=== PATIENT | male | born 1940 | race Caucasian/White ===

== ENCOUNTER 2022-09-01 13:21 | Inpatient (IN) | payer MEDICARE, SELFPAY ==
[2022-09-01] VITALS (29 sets, daily range): BP systolic 110–144; BP diastolic 61–79; PULSE 80–88; RESP 10–26; TEMP 35.8–36.5; O2SAT 92–100; BMI 25.7
--- NOTE | ~2022-09-01 | XR_ITS ---
XR chest 2V 09/01/2022 13:54 Indication: Cough. Confusion. Procedure: AP and lateral views of the chest Comparison: 07/31/2011 Findings: Patchy bilateral airspace consolidation, consistent with pneumonia. Heart size normal. Pace maker lead tip in the right ventricle. No pleural effusion, edema or pneumothorax. No acute osseous a bnormality. Impression: 1: Patchy bilateral airspace disease, compatible with pneumonia. Reviewed, dictated and finalized at location A. Impression: 1: Patchy bilateral airspace disease, compatible with pneumonia.
--- NOTE | 2022-09-01 13:36 | ECG_ITS ---
Measurements Intervals [place] Rate: 84 P: MN: 0 QRS: -77 QRSD: 178 T: 83 QT: 456 QTc: 540 Interpretive Statements ELECTRONIC VENTRICULAR PACEMAKER INTRINSIC COMPLEXES ARE APPROPRIATELY SENSED ABNORMAL RHYTHM ECG NO PREVIOUS ECG AVAILABLE FOR COMPARISON Electronically Signed On 09-02-2022 11:15:50 CDT by Zion Flower M.D.
--- NOTE | 2022-09-01 14:47 | ED.URI ---
HPI - URI/Sore Throat General Chief Complaint: Upper Respiratory Infection Stated Complaint: cough, fatigue wants CXR Time Seen by Provider: 09/01/22 14:34 History of Present Illness HPI Narrative: Patient is an 82-year-old male with history of A-fib on Eliquis, here for evaluation of productive cough, low-grade fevers (99.8), possible increased confusion x3 days. His cough has been productive of yellow/white sputum, reports when the cough is there he feels short of breath. Home COVID test was negative. No chest pain, leg swelling. PMD was contacted who recommended ED evaluation for chest x-ray. Related Data Home Medications Medication Instructions Recorded Confirmed amlodipine 10 mg tablet 10 mg PO DAILY 12/20/20 09/01/22 apixaban 5 mg tablet (Eliquis) 5 mg PO BID 12/20/20 09/01/22 donepezil 10 mg tablet 10 mg PO QHS 12/20/20 09/01/22 memantine 10 mg tablet 10 mg PO BID 12/20/20 09/01/22 atorvastatin 20 mg tablet 20 mg PO QHS 09/01/22 09/01/22 hydralazine 25 mg tablet 25 mg PO TID 09/01/22 09/01/22 irbesartan 300 mg tablet 300 mg PO DAILY 09/01/22 09/01/22 triamcinolone acetonide 0.1 % 1 applic topical BID PRN Itching 09/01/22 09/01/22 topical cream Allergies Allergy/AdvReac Type Severity Reaction Status Date / Time OPIATES AdvReac Unknown AVOIDS- Uncoded 09/01/22 15:19 MILD Confusion Review of Systems Review of Systems: Gen: Denies fevers or chills Eyes: Denies eye pain or visual change ENT: Denies congestion Respiratory: Reports cough CV: Denies chest pain or palpitations GI: Denies abdominal pain nausea, emesis or diarrhea : denies burning, urgency, frequency or hematuria Musculoskeletal: Denies back pain or muscle pain Neuro: Denies numbness, tingling, weakness or focal weakness Skin: Denies rash Except as documented, all other systems reviewed and negative [facility] Past Medical History Medical History Arthritis Hypertension Family History Family History (Updated 09/01/22 @ 17:43 by Ally Vega RN) Mother Hypertension Social History Social History (Updated 12/20/20 @ 09:14 by Marija Menon MA) Smoking status: Never smoker Alcohol intake: never Substance use: never Substance use type: does not use Lack of Transportation: No Lack of Food: Never True Current Housing: I Have Housing Concerned About Future Housing: No Difficulty Paying Gas/Electric Bills: No Difficulty Paying for Meds: No Currently Unemployed: No Education: Master's Degree or Higher Difficulty w/ Childcare or Family Care: No Spiritual care concerns: No Exam Narrative: APPEARANCE: Well appearing, no pain in distress, well-nourished. Head: Normocephalic and atraumatic. EYES: PERRLA/EOMI, conjunctivae clear NOSE: No nasal drainage EARS: External ear normal in appearance THROAT: Oropharynx is clear. Mucous membranes are moist. NECK: Supple. No adenopathy, no masses. RESPIRATORY: Slight crackles in the left lower lobe. Airway patent, respirations nonlabored. Clear to auscultation bilaterally, no rales, rhonchi, wheezing. CARDIOVASCULAR: Regular rate and rhythm without murmurs, rubs, or gallops. ABDOMINAL: Normoactive bowel sounds. Soft, nontender, nondistended. No rebound tenderness or guarding. MUSCULOSKELETAL: Extremities are warm and well-perfused. Moves all extremities well. No edema. NEURO: Normal speech. No focal neurologic deficits. SKIN: Skin is warm and dry. No rashes. PSYCHIATRIC: Normal affect/mood. Course Vital Signs Vital signs: Vital Signs Temperature 97.7 F 09/01/22 13:23 Pulse Rate 84 09/01/22 13:23 Respiratory Rate 20 09/01/22 13:23 Blood Pressure 110/75 09/01/22 13:23 Pulse Oximetry 95 09/01/22 13:23 Oxygen Delivery Room Air 09/01/22 13:23 Temperature 96.5 F L 09/01/22 17:44 Pulse Rate 81 09/01/22 18:00 Respiratory Rate 20 09/01/22 17:44 Blood Pre
[2022-09-01 15:03] LABS: Basophils Absolute Auto 0.1 K/mm3 (0.0-0.1); Basophils Percent Auto 0.4 % (0.2-1.2); Eosinophils Percent Auto 0.3 % (0-4.4); Hematocrit 42.3 % (42.0-52.0); Immature Granulocyte Absolute 0.06 K/mm3 (0.00-0.031); Immature Granulocyte Percent A 0.5 % (0-0.5); Lymphocytes Absolute Auto 1.75 K/mm3 (0.9-3.2); Lymphocytes Percent Auto 15.5 % (18.3-44.2); Mean Corpuscular HGB Conc 33.1 g/dl (32-36); Mean Corpuscular Volume 102.7 fl (80-100); Mean Platelet Volume 10.3 fl (7.4-10.4); Monocytes Absolute Auto 1.8 K/mm3 (0.1-0.6); Neutrophils Absolute Auto 7.6 K/mm3 (1.3-6.7); Neutrophils Percent Auto 67.3 % (45.5-73.1); Platelet Count Result 244 k/mm3 (150-375); Red Blood Count 4.12 M/mm3 (4.6-6.20); Red Cell Distribution Width 13.6 % (11.5-14.5); White Blood Count 11.3 K/mm3 (4.5-10.0)
[2022-09-01 15:12] LABS: Alanine Aminotransferase 27 U/L (6-50); Albumin Level 4.1 g/dL (3.5-5.1); Alkaline Phosphatase 117 U/L (38-126); Anion Gap 8 mmol/L (8-16); Aspartate Amino Transferase 33 U/L (17-59); Bilirubin,Total 1.3 mg/dL (0.2-1.3); Blood Urea Nitrogen 27 mg/dL (9-20); Calcium 9.5 mg/dL (8.4-10.2); Carbon Dioxide 26 mmol/L (22-30); Chloride 103 mmol/L (98-107); Estimated CRCL calculation 35 ml/min; Estimated Glomerular Filt Rate 42; Glucose 107 mg/dL (65-110); Sodium 137 mmol/L (137-145)
[2022-09-01 15:15] LABS: INR 1.4; Prothrombin Time 18.3 Seconds (11.1-14.7)
[2022-09-01 15:16] LABS: Partial Thromboplastin Time 37.5 SECONDS (22.3-36.8)
[2022-09-01 15:28] LABS: Troponin I 0.056 ng/mL (0.000-0.034)
[2022-09-01] MEDS: SODIUM CHLORIDE 0.9% IV 1,000 ML 999 ML IV CONT (15:59)
[2022-09-01] MEDS: ALBUTEROL SULFATE NEB 2.5 MG/3 ML INH INHALATION ×2 (16:07→20:28)
[2022-09-01] MEDS: IPRATROPIUM BR 0.02% INH SOLN 0.5 MG/2.5 ML VIAL INHALATION ×2 (16:08→20:29)
[2022-09-01 16:46] LABS: Magnesium 2.1 mg/dL (1.6-2.3)
[2022-09-01 16:55] LABS: NT Pro B Type Natriuretic Pept 1800 pg/mL (19.9-100)
--- NOTE | 2022-09-01 18:15 | PC.NURSE ---
This patient, Zion Pathak, was admitted to IMU Room 202-. Patient/family oriented to hospital policies and general routines including ID bracelet, bed and alarms, visiting hours, pain management, procedures, bathroom and other care routines, personal items, smoking policy, room service/diet, and visiting hours. Information on how to activate the Rapid Response Team has been discussed. Patient/Family are encouraged to report perceived risks to care and to ask questions if they do not understand what they are told or what they should do.
[2022-09-01] MEDS: DOXYCYCLINE 100 MG/NS 100 ML 100 MG/100 ML BAG IVPB (18:28)
[2022-09-01 18:49] LABS: Troponin I 0.047 ng/mL (0.000-0.034)
[2022-09-01 21:51] LABS: Troponin I 0.059 ng/mL (0.000-0.034)
--- NOTE | 2022-09-01 23:57 | PM.IMHP ---
H&P: HPI History of Present Illness Date/Time: 09/01/22 17:00 Chief Complaint: Cough, fatigue. 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 The patient provides the following history and his and provides some additional information, with the patient's permission. He has not been feeling well for several days with increasing confusion from baseline, cough productive of greenish-yellow sputum, poor appetite with decreased oral intake, fatigue, and mild shortness of breath with exertion. He took a home COVID test yesterday which was negative. Because he was not feeling any better he was instructed to come in today for evaluation. He denies significant headache, sore throat, vomiting, diarrhea, dysuria, chest pain, and pleuritic pain. He was afebrile on arrival to the ED with stable vital signs. Chest x-ray showed patchy bilateral airspace disease compatible with pneumonia. Pertinent labs include a WBC count of 11.3, BUN 27, creatinine 1.60, proBNP 1800, and a troponin of 0.056. EKG showed and electronically paced rhythm. In the ED he was given a dose of ceftriaxone and doxycycline as well as a DuoNeb. He is being admitted in this setting for further treatment and observation. Review of Systems Review of Systems: Twelve systems were reviewed and are negative except for as per HPI. [facility] Past Medical History Medical History (Updated 09/02/22 @ 00:05 by Magi Cano PA-C) Arthritis Chronic anticoagulation Hodgkin lymphoma (2009) Hypertension Memory loss Non-Hodgkin lymphoma (2005) Paroxysmal atrial fibrillation Surgical History Surgical History (Updated 09/02/22 @ 00:05 by Magi Cano PA-C) History of permanent cardiac pacemaker placement History of tonsillectomy Family History Family History Mother Hypertension Social History Social History (Updated 09/02/22 @ 00:12 by Magi Cano PA-C) Social History: Surrogate medical decision maker: Rosalina Pathak, . Code status: Full code. Smoking status: Never smoker Alcohol intake: never Substance use: never Substance use type: does not use Lack of Transportation: No Lack of Food: Never True Current Housing: I Have Housing Concerned About Future Housing: No Difficulty Paying Gas/Electric Bills: No Difficulty Paying for Meds: No Currently Unemployed: No Education: Master's Degree or Higher Difficulty w/ Childcare or Family Care: No Additional living arrangements comments: Patient lives with his in [place]. 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 Spiritual care concerns: No Meds Home Medications and Allergies Home Medications Medication Instructions Recorded Confirmed Type amlodipine 10 mg tablet 10 mg PO HS 12/20/20 09/01/22 History apixaban 5 mg tablet (Eliquis) 5 mg PO BID 12/20/20 09/01/22 History donepezil 10 mg tablet 10 mg PO DAILY 12/20/20 09/01/22 History memantine 10 mg tablet 10 mg PO BID 12/20/20 09/01/22 History acetaminophen 500 mg capsule 1,000 mg PO BID 09/01/22 09/01/22 History atorvastatin 20 mg tablet 20 mg PO QHS 09/01/22 09/01/22 History cholecalciferol (vitamin D3) 50 50 mcg PO HS 09/01/22 09/01/22 History mcg (2,000 unit) capsule duloxetine 20 mg capsule,delayed 20 mg PO BID 09/01/22 09/01/22 History release hydralazine 25 mg tablet 25 mg PO BID 09/01/22 09/01/22 History irbesartan 300 mg tablet 300 mg PO DAILY 09/01/22 09/01/22 History psyllium husk 0.4 gram capsule 0.4 g PO DAILY 09/01/22 09/01/22 History (Metamucil) triamcinolone acetonide 0.1 % 1 applic topical BID PRN Itching 09/01/22 09/01/22 History topical cream Allergies
[2022-09-02] VITALS (24 sets, daily range): BP systolic 124–159; BP diastolic 58–81; PULSE 77–88; RESP 16–20; TEMP 36.4–37.2; O2SAT 93–98
--- NOTE | 2022-09-02 00:09 | ECHO_ITS ---
Patient Info Name: Zion Pathak Age: 82 years : 1940 Gender: Male Ht: 71 in Wt: 184 lbs BSA: 2.05 m2 HR: 80 bpm BP: 140 / 70 mmHg Heart Rhythm: Sinus Rhythm Technical Quality: Fair Exam Date: 09/02/2022 10:01 AM Exam Location: [facility] Patient Status: Inpatient Admit Date: 09/02/2022 Staff Ordering Physician: Magi Cano PA-C Cafeteria Or Lunchroom Checker: Silvia Patel RDCS Attending Provider: Miguel Horowitz MD Referring Physician: Rachael GEORGE; Exam Type: CA echo dop color flow w con Study Info Indications - elevated troponin, murmur, pafib, htn Complete two-dimensional, color flow and Doppler transthoracic echocardiogram is performed with contrast to opacify the left ventricle and to improve the deliniation of the left ventricle endocardial borders. Contrast/Agitated Saline Contrast/Ag. Saline: Definity Amount: 2.00 ml Administered By: Silvia Patel RDCS Existing IV Access: Yes IV Access Condition: patent with no signs of infiltration Summary 1. Definity contrast administered improved wall motion interpretation. 2. Left ventricular chamber dimension is normal. 3. Left ventricular systolic function is normal, estimated at 65-70%. 4. There is moderate asymmetric septal increased left ventricular wall thickness. 5. The left ventricular diastolic function is abnormal. 6. E/e' 25 is elevated. 7. Linear artifact in right ventricle suggestive of catheter(s), pacemaker lead(s), or ICD lead(s). 8. Linear artifact in the right atrium suggestive of catheter(s), pacemaker lead(s), or ICD lead(s). 9. There is severe aortic valve sclerosis. 10. There is moderate aortic valve stenosis with a peak velocity of 377.05 cm/s, mean gradient of 31 mmHg, and aortic valve area of 1.15 cm2. 11. There is mild aortic valve regurgitation. 12. The mitral valve has severely calcified annulus. 13. There is mild tricuspid valve regurgitation. 14. Mild pulmonary hypertension, estimated pulmonary arterial systolic pressure is 48 mmHg. Left Ventricle E/e' 25 is elevated. Definity contrast administered improved wall motion interpretation. Left ventricular chamber dimension is normal. Left ventricular systolic function is normal, estimated at 65-70%. There is moderate asymmetric septal increased left ventricular wall thickness. The left ventricular diastolic function is abnormal. Right Ventricle Linear artifact in right ventricle suggestive of catheter(s), pacemaker lead(s), or ICD lead(s). Right ventricular chamber dimension is normal. Right ventricular systolic function is normal. Left Atria Left atrial chamber dimension is normal. Right Atria Linear artifact in the right atrium suggestive of catheter(s), pacemaker lead(s), or ICD lead(s). Right atrial chamber dimension is normal. Aortic Valve The aortic valve is probable trileaflet. There is severe aortic valve sclerosis. There is moderate aortic valve stenosis with a peak velocity of 377.05 cm/s, mean gradient of 31 mmHg, and aortic valve area of 1.15 cm2. There is mild aortic valve regurgitation. Pulmonic Valve There is no pulmonic regurgitation. Mitral Valve The mitral valve has severely calcified annulus. There is no mitral valve stenosis. There is no mitral valve regurgitation. Tricuspid Valve There is mild tricuspid valve regurgitation. Mild pulmonary hypertension, estimated pulmonary arterial systolic pressure is 48 mmHg. Pericardium/Pleural There is no pericardial effusion. Inferior Vena Cava Normal inferior vena cava wi
[2022-09-02] MEDS: amLODIPine BESYLATE 5 MG TABLET 10 MG PO ×2 (01:35→20:30)
[2022-09-02] MEDS: CHOLECALCIFEROL 1,000 UNITS TABLET 2000 UNITS PO ×2 (01:36→20:30)
[2022-09-02] MEDS: MEMANTINE 10 MG TABLET PO ×3 (01:36→20:30)
[2022-09-02] MEDS: DULoxetine HCL 20 MG CAPSULE.DR PO ×3 (01:36→20:30)
[2022-09-02] MEDS: ATORVASTATIN 20 MG TABLET PO ×2 (01:36→20:30)
[2022-09-02] MEDS: APIXABAN 5 MG TABLET PO ×3 (01:36→20:30)
[2022-09-02] MEDS: LACTATED RINGERS 1,000 ML 100 ML IV CONT (01:37)
[2022-09-02] MEDS: ALBUTEROL SULFATE NEB 2.5 MG/3 ML INH INHALATION ×4 (02:20→21:25)
[2022-09-02] MEDS: IPRATROPIUM BR 0.02% INH SOLN 0.5 MG/2.5 ML VIAL INHALATION ×4 (02:20→21:25)
[2022-09-02 04:50] LABS: Hematocrit 41.4 % (42.0-52.0); Hemoglobin 13.7 g/dL (14.0-18.0); Mean Corpuscular HGB Conc 33.1 g/dl (32-36); Mean Corpuscular Volume 102.7 fl (80-100); Mean Platelet Volume 10.8 fl (7.4-10.4); Platelet Count Result 255 k/mm3 (150-375); Red Blood Count 4.03 M/mm3 (4.6-6.20); Red Cell Distribution Width 13.8 % (11.5-14.5); White Blood Count 12.1 K/mm3 (4.5-10.0)
[2022-09-02 04:57] LABS: Anion Gap 7 mmol/L (8-16); Blood Urea Nitrogen 23 mg/dL (9-20); Calcium 9.2 mg/dL (8.4-10.2); Carbon Dioxide 25 mmol/L (22-30); Chloride 104 mmol/L (98-107); Estimated CRCL calculation 42 ml/min; Estimated Glomerular Filt Rate 53; Glucose 112 mg/dL (65-110); Magnesium 1.9 mg/dL (1.6-2.3); Potassium 4.1 mmol/L (3.4-5.0); Sodium 136 mmol/L (137-145)
[2022-09-02] MEDS: PERFLUTREN LIPID MICROSPHERES 1.5 ML VIAL DILUTED TO 10 ML TOTAL VOLUME IV PUSH (10:30)
[2022-09-02] MEDS: PSYLLIUM SUGAR FREE POWDER PACKET 1 PACKET PO (10:36)
[2022-09-02] MEDS: DONEPEZIL HCL 10 MG TABLET PO (10:37)
[2022-09-02] MEDS: hydrALAZINE HCL 25 MG TABLET PO ×2 (10:37→20:30)
[2022-09-02] MEDS: DOXYCYCLINE 100 MG/NS 100 ML 100 MG/100 ML BAG IVPB ×2 (10:38→20:39)
--- NOTE | 2022-09-02 11:57 | IVDEFINITY ---
Prior to administration of IV Definity the patient was educated on the risks and benefits of the imaging enhancing agent including potential adverse side effects. The patient verbalized understanding. Allergies were verified. No exclusion criteria were identified and at least one of the following inclusion criteria were met: 1) physician request, 2) patient technically difficult to image (per the [place] [employer] guidelines of two or more segments not discernable within the apical view), or 3) questionable left ventricular function. ?
--- NOTE | 2022-09-02 12:12 | PM.IMPN ---
Progress Note: A&P Assessment and Plan (1) Multifocal pneumonia: Code(s): J18.9 - Pneumonia, unspecified organism Status: Acute Assessment and Plan: The patient presents to the emergency department for evaluation of URI symptoms for last 3 days. CXR shows multifocal pneumonia. -Doxycycline and ceftriaxone started 09/01 -Sputum for culture ordered -Legionella and pneumococcal antigens as well as mycoplasma IgM ordered -WBC about the same at 12K today. COVID negative prior to admission but will re-test. Continue scheduled bronchodilators Continue abx. Feels weak still so will add PT/OT (2) Elevated troponin: Code(s): R77.8 - Other specified abnormalities of plasma proteins Status: Acute Assessment and Plan: Initial troponin was elevated to 0.059 but overall have remained flat. EKG showing paced rhythm. He has not had any chest pain whatsoever and it is unlikely that this represents acute coronary syndrome. An echocardiogram has been ordered. Follow up on Echo result. (3) Acute kidney injury: Code(s): N17.9 - Acute kidney failure, unspecified Status: Acute Assessment and Plan: BUN 27 and Cr 1.6 on admission. [place] pre-renal related to poor oral intake recently. With IV fluids, BUN 23 and Cr 1.3. No baseline renal function to compare. BNP elevated but doubt CHF but will stop IV fluids after bag complete and monitor since eating normally now. (4) Dehydration: Code(s): E86.0 - Dehydration Status: Acute Assessment and Plan: As above. Finish IV fluids today (5) Hypertension: Code(s): I10 - Essential (primary) hypertension Status: Acute Assessment and Plan: Patient's blood pressure was reviewed on 09/02 Blood pressure remains well controlled. Will continue to monitor (6) Paroxysmal atrial fibrillation: Code(s): I48.0 - Paroxysmal atrial fibrillation Status: Acute Assessment and Plan: Hx of pAFib. Rate controlled with paced rhythm. Continue Eliquis. Not on rate lowering agents. (7) Memory loss: Code(s): R41.3 - Other amnesia Status: Acute Assessment and Plan: Stable. Continue donepezil. Subjective Date/time seen: 09/02/22 12:12 Interval history: 82yo man with pAFib on chronic anticoagulation, HTN, HLD and memory loss who presented to the emergency department via private vehicle from home for evaluation of cough and fatigue. Last week, he developed bronchitis, decreased appetite and cough. No fever but cough productive of yellow sputum. Feels better today. Cough has lessened. Eating better. Exam Narrative: AF 97.8 130/74 82 18 96% ra Gen - NARD sitting up in chair Chest - L>R bibasilar inspiratory crackles, nml RR. PM in left upper chest CV - RRR S1/S2 with 2/6 systolic murmur loudest LSB. Tele showing paced rhythm Abd - Soft, NT/ND, Positive BS Ext - trace pedal edema Psych - Nml mood and affect Skin - Warm and dry Objective Data Vital Signs Vital Signs: Vital Signs - 24 hr 09/01/22 13:23 09/01/22 15:15 09/01/22 15:19 Temperature 97.7 F Pulse Rate 84 81 Respiratory Rate 20 20 Blood Pressure 110/75 117/64 Pulse Oximetry 95 96 97 Oxygen Delivery Room Air Room Air 09/01/22 16:01 09/01/22 16:08 09/01/22 16:19 Temperature Pulse Rate 80 82 81 Respiratory Rate 18 20 19 Blood Pressure 124/70 Pulse Oximetry 97 Oxygen Delivery 09/01/22 15:15 09/01/22 15:16 09/01/22 15:30 Temperature Pulse Rate 81 80 82 Respiratory Rate 16 14 21 H Blood Pressure 117/64 Pulse Oximetry 97 96 Oxygen Delivery 09/01/22 15:31 09/01/22 15:45 09/01/22 15:46 Temperature Pulse Rate 83 80 84 Respiratory Rate 15 19 23 H Blood Pressure 118/67 121/75 Pulse Oximetry 96 93 94 Oxygen Delivery 09/01/22 16:00 09/01/22 16:01 09/01/22 16:15 Temperature Pulse Rate 82 80 80 Respiratory Rate 21 H 16 10 L Blood
[2022-09-02 15:42] LABS: Influenza A QL RT-PCR Negative (Negative); Influenza B QL RT-PCR Negative (Negative); RSV RNA, RT-PCR Negative (Negative); SARS-CoV-2 RNA PCR Negative (Negative)
[2022-09-02] MEDS: ACETAMINOPHEN 325 MG TABLET 650 MG PO (20:45)
[2022-09-03] VITALS (12 sets, daily range): BP systolic 118–135; BP diastolic 64–76; PULSE 79–87; RESP 16–20; TEMP 36.6–36.9; O2SAT 95–97
[2022-09-03 05:00] LABS: Basophils Absolute Auto 0.1 K/mm3 (0.0-0.1); Basophils Percent Auto 0.5 % (0.2-1.2); Eosinophils Absolute Auto 0.1 K/mm3 (0-0.3); Eosinophils Percent Auto 0.6 % (0-4.4); Hematocrit 39.8 % (42.0-52.0); Hemoglobin 13.3 g/dL (14.0-18.0); Immature Granulocyte Absolute 0.19 K/mm3 (0.00-0.031); Immature Granulocyte Percent A 1.5 % (0-0.5); Lymphocytes Absolute Auto 1.48 K/mm3 (0.9-3.2); Lymphocytes Percent Auto 11.5 % (18.3-44.2); Mean Corpuscular HGB Conc 33.4 g/dl (32-36); Mean Corpuscular Volume 101.8 fl (80-100); Mean Platelet Volume 10.7 fl (7.4-10.4); Monocytes Absolute Auto 1.5 K/mm3 (0.1-0.6); Monocytes Percent Auto 11.5 % (2.6-8.5); Neutrophils Absolute Auto 9.6 K/mm3 (1.3-6.7); Neutrophils Percent Auto 74.4 % (45.5-73.1); Platelet Count Result 266 k/mm3 (150-375); Red Blood Count 3.91 M/mm3 (4.6-6.20); Red Cell Distribution Width 13.6 % (11.5-14.5); White Blood Count 12.9 K/mm3 (4.5-10.0)
[2022-09-03 05:24] LABS: Anion Gap 7 mmol/L (8-16); Blood Urea Nitrogen 22 mg/dL (9-20); Calcium 8.9 mg/dL (8.4-10.2); Carbon Dioxide 25 mmol/L (22-30); Chloride 104 mmol/L (98-107); Estimated CRCL calculation 45 ml/min; Estimated Glomerular Filt Rate 58; Glucose 104 mg/dL (65-110); Potassium 3.8 mmol/L (3.4-5.0); Sodium 136 mmol/L (137-145)
[2022-09-03 06:30] LABS: Folic Acid 17.3 ng/mL (2.76->20)
[2022-09-03] MEDS: DOXYCYCLINE 100 MG/NS 100 ML 100 MG/100 ML BAG IVPB (08:36)
[2022-09-03] MEDS: DULoxetine HCL 20 MG CAPSULE.DR PO (08:40)
[2022-09-03] MEDS: DONEPEZIL HCL 10 MG TABLET PO (08:40)
[2022-09-03] MEDS: APIXABAN 5 MG TABLET PO (08:40)
[2022-09-03] MEDS: hydrALAZINE HCL 25 MG TABLET PO (08:41)
[2022-09-03] MEDS: MEMANTINE 10 MG TABLET PO (08:41)
[2022-09-03] MEDS: ACETAMINOPHEN 325 MG TABLET 650 MG PO (09:01)
[2022-09-03] MEDS: IPRATROPIUM BR 0.02% INH SOLN 0.5 MG/2.5 ML VIAL INHALATION (09:20)
[2022-09-03] MEDS: ALBUTEROL SULFATE NEB 2.5 MG/3 ML INH INHALATION (09:20)
--- NOTE | 2022-09-03 14:33 | PM.DS ---
DS: Admitting Diagnosis Discharge Date 09/03/22 Admitting Diagnosis Cough DS: Discharge Diagnosis Discharge Diagnosis (1) Multifocal pneumonia: Code(s): J18.9 - Pneumonia, unspecified organism Status: Acute (2) Elevated troponin: Code(s): R77.8 - Other specified abnormalities of plasma proteins Status: Acute (3) Acute kidney injury: Code(s): N17.9 - Acute kidney failure, unspecified Status: Acute (4) Dehydration: Code(s): E86.0 - Dehydration Status: Acute (5) Hypertension: Code(s): I10 - Essential (primary) hypertension Status: Acute (6) Paroxysmal atrial fibrillation: Code(s): I48.0 - Paroxysmal atrial fibrillation Status: Acute (7) Memory loss: Code(s): R41.3 - Other amnesia Status: Acute DS: Summary Hospital Course Reason for hospitalization: 82yo man with pAFib on chronic anticoagulation, HTN, HLD and memory loss who presented to the emergency department via private vehicle from home for evaluation of cough and fatigue. Please see H&P for details. Hospital Course: The patient presents to the emergency department for evaluation of URI symptoms for last 3 days. CXR shows multifocal pneumonia. Doxycycline and ceftriaxone were started. Sputum for culture ordered but none collected. Legionella and pneumococcal antigens as well as mycoplasma IgM ordered and are pending. COVID, RSV and influenza negative. WBC about the same at 12K but clinically patient feels much better. Initial troponin was elevated to 0.059 but overall have remained flat. EKG showing paced rhythm. He denies chest pain and it is unlikely that this represents acute coronary syndrome. Echocardiogram showing EF 65-70%, diastolic dysfunction, mild pulmonary HTN and moderate aortic stenosis. BUN 27 and Cr 1.6 on admission. [place] pre-renal related to poor oral intake recently. With IV fluids, Cr 1.2. No baseline renal function to compare. BNP elevated but doubt CHF. Hx of pAFib. Rate controlled with paced rhythm. We continued Eliquis. Not on rate lowering agents. He overall did well and was able to be discharged home on 09/03/22. Status at Discharge Cognitive/behavioral status at discharge: stable Time Spent with Patient Time attestation: Total time spent providing and/or coordinating discharge services: 35 minutes Time spent: Greater than 30 minutes Exam Narrative: AF 98.5 118/64 87 16 96% ra Gen - NARD sitting up in chair Chest - bibasilar inspiratory crackles, nml RR. PM in left upper chest CV - RRR S1/S2. Tele showing paced rhythm Abd - Soft, NT/ND, Positive BS Ext - trace pedal edema. Negative Verónica's sign Psych - Nml mood and affect Skin - Warm and dry DS: Data Data Completed and Pending Labs on day of discharge: Labs from last 24 hours 09/03/22 09/02/22 04:21 14:45 WBC 12.9 H RBC 3.91 L Hgb 13.3 L Hct 39.8 L MCV 101.8 H MCH 34.0 MCHC 33.4 RDW 13.6 Plt Count 266 MPV 10.7 H Immature Gran % (Auto) 1.5 H Neut % (Auto) 74.4 H Lymph % (Auto) 11.5 L Nicholas % (Auto) 11.5 H Eos % (Auto) 0.6 Baso % (Auto) 0.5 Lymph # (Auto) 1.48 Nicholas # (Auto) 1.5 H Eos # (Auto) 0.1 Baso # (Auto) 0.1 Abs Immat Gran (auto) 0.19 H Absolute Neuts (auto) 9.6 H Absolute Nucleated RBC 0.0 Nucleated RBC % 0.0 Sodium 136 L Potassium 3.8 Chloride 104 Carbon Dioxide 25 Anion Gap 7 L BUN 22 H Creatinine 1.20 Estim Creat Clear Calc 45 Estimated GFR 58 L Glucose 104 Calcium 8.9 Vitamin B12 593.0 Folate 17.3 Influenza A (RT-PCR) Negative Influenza B (RT-PCR) Negative RSV (RT-PCR) Negative SARS-CoV-2 RNA (RT-PCR) Negative Discharge Plan Discharge Attending physician on discharge: Pan Tirado Discharging Clinician: Pan Tirado Anticipated Discharge Date/Time: 09/03/22 14:44 Patient Disposition: Home, Self-Care Activity: as tolera
[2022-09-05 02:53] LABS: Pneumococcal Antigen Urine Not Detected (Not Detected)
[2022-09-05 19:41] LABS: Mycoplasma IgM Antibody Titer 8 U/mL (<770)
[2022-09-07 05:55] LABS: Legionella pneumophila Ag Ur Not Detected (Not Detected)
== END 2022-09-03 15:43 | disposition home or self-care (01) | DRG 194 ==
LOC: ANHED 16:03 → ANHIMU 16:56
PROVIDERS: Emergency Medicine; Physician Assistant; Admitting Provider Family Medicine; Emergency Provider Physician Assistant; Visit Provider Internal Medicine
DX: J18.9 Pneumonia, unspecified organism (principal); N17.9 Acute kidney failure, unspecified; E86.0 Dehydration; E78.5 Hyperlipidemia, unspecified; I10 Essential (primary) hypertension; I48.0 Paroxysmal atrial fibrillation; M19.90 Unspecified osteoarthritis, unspecified site; R77.8 Other specified abnormalities of plasma proteins; R41.3 Other amnesia; Z20.822 Contact with and (suspected) exposure to COVID-19; Z79.01 Long term (current) use of anticoagulants; Z85.71 Personal history of Hodgkin lymphoma; Z85.72 Personal history of non-Hodgkin lymphomas; Z95.0 Presence of cardiac pacemaker
CPT/HCPCS: 36415; 71046; 80048; 80053; 82607; 82746; 83605; 83735; 83880; 84484; 85025; 85027; 85610; 85730; 86738; 87449; 87637; 87899; 93005; 94640; 96365; 96367; 97161; 97165; 99285; A9270; C8929; G0378; J0696; J7030; J7120; Q9957

== ENCOUNTER 2023-12-12 13:47 | Emergency (ER) | payer MEDICARE, SELFPAY ==
[2023-12-12 14:06] VITALS: BP 131/74; PULSE 89; RESP 16; TEMP 36.4; O2SAT 98
--- NOTE | 2023-12-12 14:06 | ED.WOUNDLAC ---
HPI - Wound/Laceration General Chief Complaint: Wound/Laceration Stated Complaint: Cut Left leg Time Seen by Provider: 12/12/23 14:06 Source: patient, RN notes reviewed and old records reviewed Mode of arrival: ambulatory Limitations: no limitations History of Present Illness HPI narrative: 83-year-old male to Express Care with his for wound to lower lateral leg. Patient's endorses patient history of dementia. Patient's states that she found patient in the bathroom this morning with wound of unknown origin present and has not been able to stop the bleeding at home, despite her efforts due to patient being on blood thinners. Patient denies pain upon arrival, cannot recall how injury occurred. Patient resting comfortably in exam room in no acute distress. Respirations even and nonlabored. Related Data Home Medications Medication Instructions Recorded Confirmed amlodipine 10 mg tablet 10 mg PO HS 12/20/20 12/12/23 apixaban 5 mg tablet (Eliquis) 5 mg PO BID 12/20/20 12/12/23 donepezil 10 mg tablet 10 mg PO DAILY 12/20/20 12/12/23 memantine 10 mg tablet 10 mg PO BID 12/20/20 12/12/23 acetaminophen 500 mg capsule 1,000 mg PO BID 09/01/22 12/12/23 cholecalciferol (vitamin D3) 50 50 mcg PO HS 09/01/22 12/12/23 mcg (2,000 unit) capsule duloxetine 20 mg capsule,delayed 20 mg PO BID 09/01/22 12/12/23 release hydralazine 25 mg tablet 25 mg PO BID 09/01/22 12/12/23 triamcinolone acetonide 0.1 % 1 applic topical BID PRN Itching 09/01/22 12/12/23 topical cream azelastine 205.5 mcg (0.15 %) 2 spray intranasal DAILY 12/12/23 12/12/23 nasal spray clopidogrel 75 mg tablet (Plavix) 75 mg PO DAILY 12/12/23 12/12/23 gentamicin 0.1 % topical ointment 1 applic topical DAILY 12/12/23 rosuvastatin 40 mg tablet 40 mg PO DAILY 12/12/23 12/12/23 Allergies Allergy/AdvReac Type Severity Reaction Status Date / Time OPIATES AdvReac Unknown AVOIDS- Uncoded 12/12/23 13:57 MILD Confusion Review of Systems Review of Systems: All systems reviewed & are unremarkable except as noted in HPI and below Constitutional: Constitutional: Reports no additional constitutional complaints Eyes: Eyes: Reports no additional eye complaints ENT: Reports system reviewed and no additional complaints, except as documented Cardiovascular: Cardiovascular: Reports no additional cardiovascular complaints, Denies chest pain and Denies dyspnea Respiratory: Respiratory: Reports no additional respiratory complaints, Denies cough and Denies dyspnea Musculoskeletal: Musculoskeletal: Reports no additional musculoskeletal complaints Integumentary/Breasts: Skin/Breast: Reports as per HPI and Reports wounds ( Left lateral lower leg) Neurologic: Reports system reviewed and no additional complaints, except as documented Psychiatric: Psychiatric: Reports no additional psychiatric complaints [facility] Past Medical History Medical History Arthritis Chronic anticoagulation Hodgkin lymphoma (2009) Hypertension Memory loss Non-Hodgkin lymphoma (2005) Paroxysmal atrial fibrillation Surgical History Surgical History History of permanent cardiac pacemaker placement History of tonsillectomy Family History Family History Mother Hypertension Social History Social History Social History: Surrogate medical decision maker: Rosalina Pathak, . Code status: Full code. Smoking status: Never smoker Alcohol intake: never Substance use: never Substance use type: does not use Lack of Transportation: No Lack of Food: Never True Current Housing: I Have Housing Concerned About Future Housing: No Difficulty Paying Gas/Electric Bills: No Difficulty Paying for Meds: No Currently Unemployed: No
[2023-12-12 14:09] VITALS: BP 131/74; PULSE 89; RESP 16; TEMP 36.4; O2SAT 98
[2023-12-12] MEDS: CELLULOSE OXIDIZED 2 x 14 INCH 1 PKT XX (14:20)
== END 2023-12-12 14:54 | disposition home or self-care (01) ==
PROVIDERS: Emergency Provider Nurse Practitioner Family
DX: S80.812A Abrasion, left lower leg, initial encounter (principal); X58.XXXA Exposure to other specified factors, initial encounter; F03.90 Unspecified dementia, unspecified severity, without behavioral disturbance, psychotic disturbance, mood disturbance, and anxiety; M19.90 Unspecified osteoarthritis, unspecified site; I10 Essential (primary) hypertension; I48.0 Paroxysmal atrial fibrillation; Z85.72 Personal history of non-Hodgkin lymphomas; Z95.0 Presence of cardiac pacemaker; Z79.01 Long term (current) use of anticoagulants
CPT/HCPCS: 99212; G0463

== ENCOUNTER 2024-01-12 15:36 | Emergency (ER) | payer MEDICARE, SELFPAY ==
[2024-01-12 15:55] VITALS: BP 135/75; PULSE 87; RESP 16; TEMP 36.3; O2SAT 95
[2024-01-12 16:00] VITALS: BP 135/75; PULSE 87; RESP 16; TEMP 36.3; O2SAT 95
--- NOTE | 2024-01-12 16:22 | ED.UPPEXIN ---
HPI - Extremity Injury (Upper) General Chief Complaint: Extremity Injury, Upper Stated Complaint: Bleeding Left Arm Time Seen by Provider: 01/12/24 16:22 Source: patient Mode of arrival: ambulatory Limitations: no limitations History of Present Illness HPI narrative: 83-year-old male presents with his today with a skin tear to left forearm. First noticed yesterday. Unknown injury. Patient is on 2 blood thinners. In the past he has needed Surgicel to stop the bleeding. Patient has history of dementia. All systems reviewed and negative except as noted above. Related Data Home Medications Medication Instructions Recorded Confirmed apixaban 5 mg tablet (Eliquis) 5 mg PO BID 12/20/20 01/12/24 donepezil 10 mg tablet 10 mg PO DAILY 12/20/20 01/12/24 memantine 10 mg tablet 10 mg PO BID 12/20/20 01/12/24 acetaminophen 500 mg capsule 1,000 mg PO BID 09/01/22 01/12/24 cholecalciferol (vitamin D3) 50 50 mcg PO HS 09/01/22 01/12/24 mcg (2,000 unit) capsule duloxetine 20 mg capsule,delayed 20 mg PO BID 09/01/22 01/12/24 release hydralazine 25 mg tablet 25 mg PO TID 09/01/22 01/12/24 triamcinolone acetonide 0.1 % 1 applic topical BID PRN Itching 09/01/22 01/12/24 topical cream clopidogrel 75 mg tablet (Plavix) 75 mg PO DAILY 12/12/23 01/12/24 gentamicin 0.1 % topical ointment 1 applic topical DAILY 12/12/23 01/12/24 rosuvastatin 40 mg tablet 40 mg PO DAILY 12/12/23 01/12/24 Allergies Allergy/AdvReac Type Severity Reaction Status Date / Time OPIATES AdvReac Unknown AVOIDS- Uncoded 01/12/24 15:57 MILD Confusion Review of Systems Review of Systems: CONSTITUTIONAL: Denies fever, chills, or sweats. EYES: Denies visual changes, redness, or discharge. ENT: Denies rhinorrhea, congestion, sore throat, or otalgia. CARDIOVASCULAR: Denies chest pain, palpitations, or edema. RESPIRATORY: Denies cough or dyspnea. GASTROINTESTINAL: Denies abdominal pain, nausea, vomiting, or diarrhea. GENITOURINARY: Denies dysuria or hematuria. SKIN: Denies rash or itching. Abrasion to left forearm. MUSCULOSKELETAL: Denies back pain, joint pain, or myalgia. NEUROLOGIC: Denies headache, numbness, or weakness. PSYCHIATRIC: Denies anxiety or depression. All other systems reviewed are negative, except as documented in HPI. [facility] Past Medical History Medical History Arthritis Chronic anticoagulation Hodgkin lymphoma (2009) Hypertension Memory loss Non-Hodgkin lymphoma (2005) Paroxysmal atrial fibrillation Surgical History Surgical History History of permanent cardiac pacemaker placement History of tonsillectomy Family History Family History Mother Hypertension Social History Social History Social History: Surrogate medical decision maker: Rosalina Pathak, . Code status: Full code. Smoking status: Never smoker Alcohol intake: never Substance use: never Substance use type: does not use Lack of Transportation: No Lack of Food: Never True Current Housing: I Have Housing Concerned About Future Housing: No Difficulty Paying Gas/Electric Bills: No Difficulty Paying for Meds: No Currently Unemployed: No Education: Master's Degree or Higher Difficulty w/ Childcare or Family Care: No Additional living arrangements comments: Patient lives with his in [place]. 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 Spiritual care concerns: No Comments At time of signature, agree with nursing past medical, surgical, social and family history. There is no relevant family history pertinent to the presenting complaint. Exam Narrative: GENERAL: This is a well-nourished, well-developed patient, in no apparent distress. HEAD: nor
[2024-01-12] MEDS: CELLULOSE OXIDIZED 2 x 14 INCH 1 PKT XX (16:37)
== END 2024-01-12 17:03 | disposition home or self-care (01) ==
PROVIDERS: Emergency Provider Nurse Practitioner Family
DX: S51.812A Laceration without foreign body of left forearm, initial encounter (principal); X58.XXXA Exposure to other specified factors, initial encounter; F03.90 Unspecified dementia, unspecified severity, without behavioral disturbance, psychotic disturbance, mood disturbance, and anxiety; M19.90 Unspecified osteoarthritis, unspecified site; I10 Essential (primary) hypertension; I48.0 Paroxysmal atrial fibrillation; Z95.5 Presence of coronary angioplasty implant and graft; Z79.01 Long term (current) use of anticoagulants; Z85.71 Personal history of Hodgkin lymphoma; Z85.72 Personal history of non-Hodgkin lymphomas
CPT/HCPCS: 99212; G0463

== ENCOUNTER 2024-06-14 11:15 | Outpatient (RCR) | payer MEDICARE, SELFPAY ==
[2024-05-18 15:34] VITALS: PULSE 85
== END 2024-08-11 14:24 | disposition home or self-care (01) ==
LOC: ANHCPREHAB 11:15
PROVIDERS: Visit Provider Internal Medicine Cardiovascular Disease
DX: Z95.5 Presence of coronary angioplasty implant and graft (principal)
CPT/HCPCS: 93798

== ENCOUNTER 2024-10-21 21:08 | Inpatient (IN) | payer MEDICARE, SELFPAY ==
--- NOTE | ~2024-10-21 | XR_ITS ---
XR chest 1V portable 10/21/2024 22:20 Indication: Altered mental status Procedure: AP portable chest Comparison: Comparison to multiple prior studies sequentially, with oldest reviewed study dated 07/02. Findings: Bibasilar airspace disease. Cardiomegaly. There is coronary artery stent. Pacemaker lead is stable. No edema or pneumothorax. Impression: 1: Bibasilar infiltrates may represent atelectasis/scarring or less likely pneumonia. Reviewed, dictated and finalized at location B. Impression: 1: Bibasilar infiltrates may represent atelectasis/scarring or less likely pneu monia.
--- NOTE | ~2024-10-21 | CT_ITS ---
History: Generalized weakness PROCEDURE: CT head without contrast. COMPARISON: 02/11/2017 TECHNIQUE: Axial imaging of the head performed from the skull base to the vertex without IV contrast. Sagittal a nd coronal reformations obtained. DLP: 757 mGy-cm FINDINGS: The ventricles are enlarged. The dilatation of the ventricles is proportional to the degree of sulcal prominence, not uncommon in the senescent brain. Decreased attenuation is identified within the periventricular white matter, likely secondary to micr ovascular ischemic disease, in a patient of this age. There is no mass, mass effect or midline shift. There is no abnormal extra-axial fluid collection or intracranial hemorrhage. Visualized paranasal sinuses are clear. The mastoid air cells are well aerated. No acute displaced fractures within the overlying cranium. Impression: No acute intracranial hemorrhage or suspicious mass effect. Reviewed, dictated and finalized at location A. Impression: No acute intracranial hemorrhage or suspicious mass effect.
--- NOTE | ~2024-10-21 | CT_ITS ---
EXAMINATION: CT chest abdomen pelvis w con DATE: 10/21/2024 23:34 INDICATION: Generalized weakness TECHNIQUE: Computed tomography (CT) of the chest, abdomen, and pelvis was performed with 100 mL Omnip aque-350 intravenous contrast. Automated exposure control and iterative reconstruction technique were employed. The dose-length product was 1540.45 mGy-cm. COMPARISON: 03/04/2019 FINDINGS: CHEST CT: Mild lingular atelectasis along side a small left paracardial fat pad. No pneumonia, pulmonary edema, pleural effusion or pneumothorax. Cardiomegaly with right atrial enlargement. Atherosclerotic finnegan ry artery calcifications. And aortic valve calcification. Single lead cardiac pacemaker with lead tip near the apex of the right ventricle. Thoracic aorta is normal in caliber with no dissection. No pat hologically enlarged thoracic lymphadenopathy. Asymmetric enlargement of the right thyroid lobe witho ut discrete thyroid nodules. Chronic T1 compression fracture with 20% anterior vertebral body height loss. There are bridging osteophytes at multiple levels consistent with diffuse idiopathic skeletal h yperostosis (DISH). ABDOMEN/PELVIS CT: Liver, gallbladder, pancreas and bilateral adrenal glands are normal. 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 Bilateral renal cysts the largest on the right giovanna uring 5.8 cm. Bowels including the appendix are normal. Cluster of a few bladder stones measuring up to 7 mm near the bladder outlet. Bladder is otherwise unremarkable. Prostatomegaly measuring 4.5 x 4. 0 cm. No free intraperitoneal gas or fluid. No pathologically enlarged abdominal or pelvic lymphadeno jn. Mild lumbar spondylosis. There are some heterotopic ossification about the left greater trocha nter which could be related to chronic trauma or enthesopathy. IMPRESSION: 1. No acute cardiopulmonary disease or acute intra-abdominal/pelvic process. 2. Cardiomegaly with right atrial enlargement. 3. Prostatomegaly and a few bladder stones. 4. 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 Reviewed, dictated and finalized at location A.
[2024-10-21 21:10] VITALS: BP 158/75; PULSE 81; RESP 17; TEMP 36.9; O2SAT 98
[2024-10-21 21:15] VITALS: BP 158/75; PULSE 86; RESP 19; O2SAT 100
--- NOTE | 2024-10-21 21:18 | ECG_ITS ---
Test Date: 2024-10-21 21:37:52 Measurements Intervals [place] Rate: 82 P: 0 IN: 0 QRS: -69 QRSD: 185 T: 77 QT: 451 QTc: 530 Interpretive Statements ELECTRONIC VENTRICULAR PACEMAKER FREQUENT VENTRICULAR PREMATURE COMPLEXES BASELINE ARTIFACT- I, II, III, AVR, AVF NO FURTHER INTERPRETATION IS POSSIBLE ABNORMAL ECG No previous ECG available for comparison Electronically Signed On 10-22-2024 06:41:48 CDT by Francisco J Dodge D.O.
[2024-10-21 21:39] VITALS: PULSE 81
[2024-10-21 21:42] LABS: Hematocrit 47.2 % (42.0-52.0); Hemoglobin 14.7 g/dL (14.0-18.0); Immature Granulocyte Percent A 0.4 % (0-0.5); Lymphocytes Absolute Auto 2.48 K/mm3 (0.9-3.2); Mean Corpuscular HGB Conc 31.1 g/dl (32-36); Mean Corpuscular Hemoglobin 32.7 pg (26-34); Mean Corpuscular Volume 105.1 fl (80-100); Nucleated Red Blood Cells Absolute Auto 0.000 K/mm3 (0.0-0.012); Nucleated Red Blood Cells Perc 0.0 % (0.0-0.2); Platelet Count Result 212 k/mm3 (150-375); Red Blood Count 4.49 M/mm3 (4.6-6.20); White Blood Count 14.0 K/mm3 (4.5-10.0)
--- OUTSIDE RECORDS SUMMARY | 2024-10-21 21:42 | XMS_ITS | Encounter Summary ---
Author Organization [facility] Address [address] [place] [address] Phone Care Team Providers Care Foreign Service Officer Name Role Phone Erik Reveles MD Primary Care Provider Michael Tate MD Primary Care Provider [phone] Max Burns MD Primary Care Provider Jensen Guevara MD Unavailable [phone] Vanessa Cooney MD Primary Care Provider [phone] Yi Kimball OT Unavailable [phone] Myron Whitaker MD Unavailable [phone] Oumar Figueroa MD Unavailable [phone] Jose Alfredo Rushing MD Unavailable [phone] Encounter Details Date Type Department Care Team (Latest Contact Info) Description 04/20/2020 Orders Only [facility] Scanning, Provider Social History Tobacco Use Types Packs/Day Years Used Date Smoking Tobacco: Former Cigarettes 0.3 3 1 977 - 1980 Pipe Smokeless Tobacco: Never Alcohol Use Standard Drinks/Week Comments Yes 0 (1 standard drink = 0.6 oz pure alcohol) SOCIALLY MAY DRINK 1/3 GLASS OF WINE Sex and Gender Information Value Date Recorded Sex Assigned at Not on file Legal Sex Male 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 Gender Identity Male 03/20/2021 5:05 PM FEED MANAGEMENT ADVISOR Sexual Orientation Not on file documented as of this encounter Plan of Treatment Not on file documented as of this encounter Procedures Procedure Name Priority Date/Time Associated Diagnosis Comments CARDIOLOGY DOCUMENT SCAN 04/20/2020 documented in this encounter Results * CARDIOLOGY DOCUMENT SCAN (04/20/2020) Anatomical Region Laterality Modality Other us Provider Scanning CV CARDIAC SERVICES PROCEDURES Final Result documented in this encounter Visit Diagnoses Not on filedocumented in this encounter Additional Health Concerns Infection Onset Date Last Indicated Resolved Time COVID: Suspected 12/11/2021 12/11/2021 12/11/2021 12:55 PM CDT documented as of this encounter Care Teams Foreign Service Officer Relationship Specialty Start Date End Date Erik Reveles MD PCP - General 09/26/16 06/27/20 Michael Tate MD [address] [place] [address] [address] [place] [address] PCP - General Internal Medicine 06/28/20 07/04/21 Max Burns MD [address] [place] [address] [address] [place] [address] PCP - General Geriatric Medicine 07/05/21 10/06/22 Vanessa Cooney MD [address] [address] PCP - General Internal Medicine 10/07/22 Jensen Guevara MD [address] [place] [address] [address] [address] Referring Physician Dermatology 05/04/22 Yi Kimball OT [address] [facility] [address] [place] [address] Occupational Therapist Occupational Therapy 09/30/23 Myron Whitaker MD [address] [facility] [address] DIV IM MEDICAL ONCOLOGY, [address] [place] [address] Medical Oncology 04/08/24 Oumar Figueroa MD [address] DIV SURG UROLOGY, [address] [place] [address] Consulting Physician Urology 04/08/24 Jose Alfredo Rushing MD [address] [facility] DEPT RADIATION ONCOLOGY, [place] [address] Radiation Oncologist Radiation Oncology 04/08/24 documented as of this encounter
--- OUTSIDE RECORDS SUMMARY | 2024-10-21 21:42 | XMS_ITS | Encounter Summary ---
Author Organization [facility] Address [address] [place] [address] Phone Care Team Providers Care Wire Hanger Name Role Phone Jensen Guevara MD Unavailable [phone] Vanessa Cooney MD Primary Care Provider [phone] Yi Kimball OT Unavailable Myron Whitaker MD Unavailable [phone] Oumar Figueroa MD Unavailable [phone] Jose Alfredo Rushing MD Unavailable Encounter Details Date Type Department Care Team (Late st Contact Info) Description 03/10/[address] [facility] Cardiology [address] [facility] Advanced Medicine 8th [place] [address] [place] [address] Paolo Terrell MD [address] [facility] [address] [place] [address] Social History Tobacco Use Types Packs/Day Years Used Date Smoking Tobacco: Never Smokeless Tobacco: Never Alcohol Use Standard Drinks/Week Comments Yes 0 (1 standard drink = 0.6 oz pure alcohol) SOCIALLY MAY DRINK 1/3 GLASS OF WINE AUDIT-C Answer Date Recorded Q1: How often do you have a drink containing alc ohol? Never 02/25/2023 Average Number of Drinks Not on file 023 Q3: How often do you have si x or more drinks on one occasion? Never 02/25/2023 Personal Safety Answer Date Recorded Have you ever been in or are you currently in a harmful physical or emotional relationship or is someone making you feel afraid or unsafe? 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 Author CCM Chronic Pain Care Plan Chronic Care Management No change(10/21 9:48 AM CDT) No Anita Mendieta RN Note: Problem: Chronic Pain Goals: 1. Minimize further functional decline 2. Maximize quality of life 3. Control pain Strategies: - Activity/exercise program recommendation - Conservative stepwise pain medicine strategy with multi-disciplinary approach - Recommend healthy lifestyle strategies and compensatory methods as needed Reduce the likelihood of falling Lifestyle No Anita Mendieta, RN Note: Below are four things you can do to prevent falls: Begin an exercise program to improve your leg strength & balance Ask your doctor or pharmacist to review your medicines Get annual eye check-ups & update your eyeglasses Make your home safer by: Removing clutter & tripping hazards Putting railings on all stairs & adding grab bars in the bathroom Having good lighting, especially on stairs Contact your local community or senior center for information on exercise, fall prevention programs, or options for improving home safety. documented as of this encounter Visit Diagnoses Not on filedocumented in this encounter Care Teams Wire Hanger Relationship Specialty Start Date End Date Vanessa Cooney MD [address] [address] PCP - General Internal Medicine 10/07/22 Jensen Guevara MD [address] [facility] [address] [place] [address] Referring Physician Dermatology 05/04/22 Yi Kimball OT [address] [place] [address] Occupational Therapist Occupational Therapy 09/30/23 Myron Whitaker MD [address] [facility] [address] DIV IM MEDICAL ONCOLOGY, [address] [place] [address] Medical Oncology 04/08/24 Oumar Figueroa MD [address] DIV SURG UROLOGY, [address] [place] [address] Consulting Physician Urology 04/08/24 Jose Alfredo Rushing MD [address] [facility] [address] DEPT RADIATION ONCOLOGY, [place] [address] Radiation Oncologist Radiation Oncology 04/08/24 documented as of this encounter
--- OUTSIDE RECORDS SUMMARY | 2024-10-21 21:42 | XMS_ITS | Encounter Summary ---
Author Organization [facility] Address [address] [place] [address] Phone Care Team Providers Care It Architect Name Role Phone Jensen Guevara MD Unavailable [phone] Vanessa Cooney MD Primary Care Provider + [phone] Myron Whitaker MD Unavailable [phone] Oumar Figueroa MD Unavailable + [phone] Jose Alfredo Rushing MD Unavailable [phone] Reason for Visit * Reason Comments Annual Exam Encounter Details Date Type Department Care Team (Late st Contact Info) Description 10/20/2024 10:30 AM CDT Office Visit [facility] [address] [place] [address] [place] [address] Vanessa Cooney MD [address] [place] [address] Annual physical exam (Primary Dx); Essential hypertension; Prostate cancer (HCC); Stage 3a chronic kidney disease (HCC); History of squamous cell carcinoma excision; Personal history of non-Hodgkin lymphomas; NICM (nonischemic cardiomyopathy) (HCC); Permanent atrial fibrillation (HCC); S/P placement of cardiac pacemaker; Chronic heart failure with preserved ejection fraction (HCC); Alzheimer's disease (HCC); Nonrheumatic aortic valve stenosis; Chronic bilateral low back pain without sciatica Social History Tobacco Use Types Packs/Day Years Used Date Smoking Tobacco: Former Cigarettes Q uit: 03/24/1979 Pipe Passive Smoke Exposure: Past Smokeless Tobacco: Never Alcohol Use Standard Drinks/Week Comments Yes 0 (1 standard drink = 0.6 oz pure alcohol) SOCIALLY MAY DRINK 1/3 GLASS OF WINE AUDIT-C Answer Date Recorded Q1: How often do you have a drink containing alcohol? Never 02/13/2024 Q2: How many drinks containi ng alcohol do you have on a typical day when you are drinking? Patient does not drink Q3: How often do you have si x or more drinks on one occasion? Never 02/13/2024 Personal Safety Answer Date Recorded Have you ever been in or are you currently in a harmful physical or emotional relationship or is someone making you feel afraid or unsafe? 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 Gender Identity Male 03/20/2021 5:05 PM MEAT BUTCHER Sexual Orientation Not on file documented as of this encounter Last Filed Vital Signs Vital Sign Reading Time Taken Comments Blood Pressure 124/78 10/20/2024 11:32 AM CDT Pulse 80 10/20/2024 11:32 AM CDT Temperature - - Respiratory Rate 16 10/20/2024 11:32 AM CDT Oxygen Saturation 98% 10/20/2024 11:32 AM CDT Inhaled Oxygen Concentration - - Weight 94.3 kg (208 lb) 10/20/2024 11:32 AM CDT Height 170.2 cm (5' 7) 10/20/2024 11:32 AM CDT Body Mass Index 32.58 10/20/2024 11:32 AM CDT documented in this encounter Ordered Prescriptions Prescription Sig Dispense Quantity Refills Last Filled Start Date End Date rosuvastatin (CRESTOR) 20 mg tablet Take 1 tablet (20 mg total) by mouth daily 30 tablet 1 10/20/2024 10/20/2025 documented in this encounter Progress Notes * Vanessa Cooney MD - 10/20/2024 10:30 AM CDT PATIENT NAME: Zion Pathak : @ 10/20/2024 HISTORY OF PRESENT ILLNESS: 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 Zion is overall doing well. History is taken from his . Patient unable to give adequate history based on Alzheimer's disease. His and states that the Seroquel was making him too sedated so it was discontinued by his memory care doctor. He continues to have an itching problem due to OCD.Rosalina has noticed it aeration in the sense that he can not dress himself now.on aricept and namenda. She describes him complaining of horrible low back pain. There is no radiation of the pain, or tingling or numbness. She does admit that he has trouble standing and has to bend his legs. He also has difficulty getting out of chairs. She feels in his legs are weak. Does take rosuvastatin 40 mg daily. And also states that he has a skin lesion on his right lower extremity. He is picking it that. She is actually concerned that there is a cancer to it. She would like thinning of flat grinder operator. He also has a lesion on his head that she wants looked at by a flat grinder operator. Zion is continuing treatment with mAb treatment by his oncologist for his history of prostate cancer. He is doing well with that. Regarding his cardiomyopathy, he has no chest pain, shortness breath, or fatigue. He has no lower extremity edema with the daily use of Lasix. Patient Active Problem List Diagnosis Date Noted NICM (nonischemic cardiomyopathy) (HCC) 04/26/2024 Chronic heart failure with preserved ejection fraction (HCC) 04/20/2024 Prostate cancer (HCC) 03/05/2024 Hypersomnia 07/24/2023 Personal history of non-Hodgkin lymphomas 10/16/2022 History of bradycardia 04/16/2022 History of squamous cell carcinoma excision 03/14/2022 Stage 3 chronic kidney disease (HCC) 03/14/2022 S/P placement of cardiac pacemaker 12/17/2021 Aortic stenosis 07/12/2021 Permanent atrial fibrillation (HCC) 07/05/2021 Essential hypertension 07/05/2021 Personal history of Hodgkin lymphoma 07/05/2021 Spondylosis of lumbosacral region without myelopathy or radiculopathy 04/07/2021 Alzheimer's disease (HCC) BPH (benign prostatic hyperplasia) 12/22/2018 Current Outpatient Medications on File Prior to Visit Medication Sig Dispense Refill acetaminophen (TYLENOL) 500 mg tablet Take 2 tablets (1,000 mg total) by mouth 2 (two) times a day apixaban (ELIQUIS) 2.5 mg tablet Take 1 tablet (2.5 mg total) by mouth 2 (two) times a day 180 tablet 3 aspirin 81 mg enteric coated tablet Take 1 tablet (81 mg total) by mouth every other day bicalutamide (CASODEX) 50 mg tablet Take 1 tablet (50 mg total) by mouth daily 30 tablet 5 cholecalciferol (VITAMIN D-3) 5,000 unit tablet Take 1 tablet (5,000 Units total) by mouth nightly cyanocobalamin, vitamin B-12, (VITAMIN B-12 ORAL) Take 1 tablet by mouth every morning donepeziL (ARICEPT) 10 mg tablet Take 1 tablet (10 mg total) by mouth daily with breakfast [address] (CYMBALTA) 30 mg capsule Take 1 capsule (30 mg total) by mouth daily empagliflozin (JARDIANCE) 10 mg tablet Take 1 tablet (10 mg total) by mouth daily 30 tablet 11 furosemide (LASIX) 20 mg tablet Take 1 tablet (20 mg total) by mouth 2 (two) times a day 180 tablet3 gentamicin (GARAMYCIN) 0.1 % ointment Apply 1 Application topically as needed memantine (NAMENDA) 10 mg tablet Take 1 tablet (10 mg total) by mouth 2 (two) times a day 90 tablet3 metoprolol XL (TOPROL-XL) 25 mg extended release tablet Take 1 tablet (25 mg total) by mouth daily 90 tablet 2 triamcinolone (KENALOG) 0.1 % cream Apply 1 g topically 2 (two) times a day as needed for irritation [DISCONTINUED] potassium chloride ER (KLOR-CON) 10 mEq CR tablet Take 2 tablet/capsule (20 mEq total) by mouth daily 90 tablet 3 [DISCONTINUED] rosuvastatin (CRESTOR) 40 mg tablet Take 1 tablet (40 mg total) by mouth nightly No current facility-administered medications on file prior to visit. ALLERGIES: Allergies Allergen Reactions Remeron [Mirtazapine] Fatigue Oversedated in the morning CURRENT MEDICATION: Current Outpatient Medications: acetaminophen (TYLENOL) 500 mg tablet, Take 2 tablets (1,000 mg total) by mouth 2 (two) times a day, Disp: , Rfl: apixaban (ELIQUIS) 2.5 mg tablet, Take 1 tablet (2.5 mg total) by mouth 2 (two) times a day, Disp: 180 tablet, Rfl: 3 aspirin 81 mg enteric coated tablet, Take 1 tablet (81 mg total) by mouth every other day, Disp: , Rfl: bicalutamide (CASODEX) 50 mg tablet, Take 1 tablet (50 mg total) by mouth daily, Disp: 30 tablet, Rfl: 5 cholecalciferol (VITAMIN D-3) 5,000 unit tablet, Take 1 tablet (5,000 Units total) by mouth nightly, Disp: , Rfl: cyanocobalamin, vitamin B-12, (VITAMIN B-12 ORAL), Take 1 tablet by mouth every morning, Disp: , Rfl: donepeziL (ARICEPT) 10 mg tablet, Take 1 tablet (10 mg total) by mouth daily with breakfast, Disp: 90 tablet, Rfl: [address] (CYMBALTA) 30 mg capsule, Take 1 capsule (30 mg total) by mouth daily, Disp: , Rfl: empagliflozin (JARDIANCE) 10 mg tablet, Take 1 tablet (10 mg total) by mouth daily, Disp: 30 tablet, Rfl: 11 furosemide (LASIX) 20 mg tablet, Take 1 tablet (20 mg total) by mouth 2 (two) times a day, Disp: 180 tablet, Rfl: 3 gentamicin (GARAMYCIN) 0.1 % ointment, Apply 1 Application topically as needed, Disp: , Rfl: memantine (NAMENDA) 10 mg tablet, Take 1 tablet (10 mg total) by mouth 2 (two) times a day, Disp: 90 tablet, Rfl: 3 metoprolol XL (TOPROL-XL) 25 mg extended release tablet, Take 1 tablet (25 mg total) by mouth daily, Disp: 90 tablet, Rfl: 2 potassium chloride ER (KLOR-CON) 10 mEq CR tablet, Take 2 tablet/capsule (20 mEq total) by mouth daily, Disp: 90 tablet, Rfl: 3 rosuvastatin (CRESTOR) 40 mg tablet, Take 1 tablet (40 mg total) by mouth nightly, Disp: , Rfl: triamcinolone (KENALOG) 0.1 % cream, Apply 1 g topically 2 (two) times a day as needed for irritation, Disp: , Rfl: Past Medical History: Diagnosis Date Alzheimer's dementia (HCC) Anxiety Aortic stenosis Arthritis Atrial fibrillation (HCC) Benign prostatic hyperplasia Bladder stone 12/22/2018 Added automatically from request for surgery [id number] BPH (benign prostatic hyperplasia) Cancer (HCC) HODGKIN'S LYMPHOMA,NONHODSKIN'S LYMPHOMA Depression Heart disease History of coronary angioplasty with insertion of stent Hypercholesterolemia Hypertension Kidney stone Low back pain Mild cognitive impairment Non-Hodgkin's lymphoma (HCC) [id number] Osteoarthritis Permanent atrial fibrillation (HCC) 07/05/2021 Prostatitis Sleep apnea doesn't use machine Past Surgical History: Procedure Laterality Date CARDIAC CATHETERIZATION Right 02/25/2023 CARDIAC PACEMAKER PLACEMENT 12/17/2021 CARDIAC STENT PLACEMENT 09/02/2023 CATARACT EXTRACTION W/ INTRAOCULAR LENS IMPLANT Bilateral 12/2021 CYSTOSCOPY INSERTION / REMOVAL STENT / STONE 04/09/2019 LASER OF PROSTATE W/ GREEN LIGHT PVP 01/05/2019 HI LMTD LMPHADEC STAGING SPX PEL&PARA-AORTIC 2009 Lymphadenectomy - (Added by TW Conv) HI SPLENECTOMY TOTAL SEPARATE PROCEDURE 2005 Splenectomy - 2005 (Added by TW Conv) PROSTATE BIOPSY 05/28/2022 TONSILLECTOMY/ADENOIDECTOMY 1948 URETERAL STENT PLACEMENT 03/05/2019 Family History Problem Relation Age of Onset Dementia Mother Heart disease Father Arthritis Father Cancer Father Heart attack Father 60 Nephrolithiasis Brother Family history of kidney stones - (Added by TW Conv) Kidney failure Brother Family history of renal failure - (Added by TW Conv) Early Son Anesthesia problems Neg Hx Social History Tobacco Use Smoking status: Former Current packs/day: 0.00 Types: Cigarettes, Pipe Quit date: 03/24/1979 Years since quittin.6 Passive exposure: Past Smokeless tobacco: Never Vaping Use Vaping status: Never Used Substance and Sexual Activity Alcohol use: Yes Comment: SOCIALLY MAY DRINK 1/3 GLASS OF WINE Drug use: Never Sexual activity: Yes Partners: Female Review of Systems Constitutional: Negative for weight loss. HENT: Negative for hearing loss. Eyes: Negative for blurred vision. Respiratory: Negative for shortness of breath. Cardiovascular: Negative for chest pain, palpitations and leg swelling. Gastrointestinal: Negative for abdominal pain, constipation and diarrhea. Genitourinary: Negative for dysuria. Musculoskeletal: Positive for myalgias. Negative for falls. Skin: Positive for itching. Neurological: Positive for weakness. Negative for dizziness and tingling. Endo/Heme/Allergies: Bruises/bleeds easily. Psychiatric/Behavioral: Positive for memory loss. Negative for depression. The patient is not nervous/anxious. PHYSICAL EXAM: BP 124/78 (BP Location: Right arm, Patient Position: Sitting) Pulse 80 Resp 16 Ht 170.2 cm (5' 7) Wt 94.3 kg (208 lb) SpO2 98% BMI 32.58 kg/m?? Physical Exam Vitals and nursing note reviewed. Constitutional: General: He is not in acute distress. Appearance: He is obese. HENT: Head: Normocephalic and atraumatic. Right Ear: Tympanic membrane and ear canal normal. Left Ear: Tympanic membrane and ear canal normal. Mouth/Throat: Mouth: Mucous membranes are moist. Pharynx: Oropharynx is clear. No posterior oropharyngeal erythema. Eyes: Extraocular Movements: Extraocular movements intact. Conjunctiva/sclera: Conjunctivae normal. Pupils: Pupils are equal, round, and reactive to light. Neck: Thyroid: No thyroid mass or thyromegaly. Vascular: No carotid bruit. Cardiovascular: Rate and Rhythm: Normal rate and regular rhythm. Heart sounds: Murmur (harsch 2/6 ANNABELLE RUSB) heard. Pulmonary: Effort: Pulmonary effort is normal. Breath sounds: Normal breath sounds. Abdominal: General: Bowel sounds are normal. There is no distension. Palpations: Abdomen is soft. There is no hepatomegaly, splenomegaly or mass. Tenderness: There is no abdominal tenderness. Musculoskeletal: Right lower leg: Edema (trace edema) present. Left lower leg: Edema (trace edema) present. Lymphadenopathy: Cervical: No cervical adenopathy. Skin: Findings: No rash. Comments: Scalp-cephalic with erythematous, and scaly 5 mm, raised macular/papular lesion. RLE with raised border, oval, 1 cm, pink, except for eschar in central region. Neurological: Mental Status: He is oriented to person, place, and time. Cranial Nerves: No cranial nerve deficit. Sensory: No sensory deficit. Motor: No weakness. Coordination: Coordination normal. Gait: Gait normal. Deep Tendon Reflexes: Reflexes normal. Comments: Straight leg test bilaterally negative. Psychiatric: Mood and Affect: Mood normal. EKG: Pacer spikes, no changes from the last EKG Health Maintenance reviewed - advised Prevnar 20 update, new COVID vaccine in the fall as well as seasonal flu shot. ASSESSMENT AND PLAN: Diagnosis Plan 1. Annual physical exam 2. Essential hypertension Comprehensive metabolic panel CBC with auto differential Urinalysis reflex to microscopic good control ccm 3. Prostate cancer (HCC) Total testosterone PSA diagnostic continue treatment per oncologist. 4. Stage 3a chronic kidney disease (HCC) check lab 5. History of squamous cell carcinoma excision referral to Derm given for 2 lesions. 6. Personal history of non-Hodgkin lymphomas in remission 7. NICM (nonischemic cardiomyopathy) (HCC) TSH Lipid panel compensated 8. Permanent atrial fibrillation (HCC) stable on eliquis ccm 9. S/P placement of cardiac pacemaker stable see dyer assistant annually 10. Chronic heart failure with preserved ejection fraction (HCC) stable 11. Alzheimer's disease (HCC) Patient receives 24/7 hr care with his and another senior safety management consultant. Care needs are being met very well. Continue follow up with memory specialist. 12. Nonrheumatic aortic valve stenosis asymptomatic on lasix avoid dehydration 13. Chronic bilateral low back pain without sciatica advised PT. Paper script given to have done in [place] DISPOSITION: The patient will return follow up in 6 months. documented in this encounter Plan of Treatment Scheduled Orders Name Type Priority Associated Diagnoses Orde r Schedule Cardiology Document Scan Cardiac Services Ordered: 10/20/2024 documented as of this encounter Goals Goal Patient Goal Type Associated Problems Recent Progress Patient-Stated? Author [facility] Chronic Pain Care Plan Chronic Care Management [...] needed Reduce the likelihood of falling Lifestyle Anita Wetzel RN Note: Below are four things you [...] on stairs Contact your local community or [facility] for information on exercise, fall prevention programs, or options for improving home safety. documented as of this encounter Results * (ABNORMAL) Urinalysis reflex to microscopic (10/20/2024 12:38 PM CDT) Color, ur Straw Yellow Clarity, ur Clear Clear [facility] Specific gravity, ur 1.011 1.003 - 1.030 [facility] pH, urine 5.0 [facility] Comment: Interpretive Data U rine pH is affected by diet, medications, systemic acid-base disturbances, and renal tubular function. pH may affect urinary stone formation. For example, urine pH below 6.0 may help reduce the tendency for calcium phosphate stones and pH greater than 6.0 may reduce the tendency for uric acid stone formation. Source: [facility] Current Interpretive Data was last revised on 2017 Protein, ur ql Negative Negative [facility] Glucose, ur ql 3+(A) Negative [facility] Ketones, ur Negative Negative [facility] Bilirubin, ur Negative Negative [facility] Blood, ur Negative Negative [facility] Urobilinogen, ur <2.0 <2.0 mg/dL [facility] Nitrite, ur Negative Negative [facility] Leukocyte esterase, ur Negative Negative [facility] UA reflex comment Reflex conditions for microscopic UA not met. [facility] Urine 10/20/2024 12:3 8 PM CDT 10/20/2024 4:02 PM CDT Vanessa Coonye MD LAB URINE ORDERABLES Final Result [facility] [place] [address] * (ABNORMAL) CBC with auto differential (10/20/2024 12:38 PM CDT) [facility] WBC 9.60 3.80 - 9.90 K/cumm Hgb 14.7 13.0 - 17.5 g/dL [facility] Hct 45.1 38.9 - 50.3 % [facility] Plt 238 150 - 400 K/cumm [facility] MPV 11.6 9.1 - 12.3 fL [facility] RBC 4.39 4.30 - 5.80 M/cumm [facility] MCV 102.7(H) 81.3 - 96.4 fL [facility] MCH 33.5(H) 27.1 - 33.3 pg [facility] MCHC 32.6 32.3 - 35.7 g/dL [facility] RDW CV 14.8 11.1 - 14.9 % [facility] RDW SD 55.6(H) 35.7 - 48.1 fL [facility] NRBC abs 0.00 0.00 - 0.01 K/cumm [facility] Blood 10/20/2024 12:3 8 PM CDT 10/20/2024 4:02 PM CDT Vanessa Cooney MD LAB BLOOD ORDERABLES Final Result [facility] [place] [address] * (ABNORMAL) Comprehensive metabolic panel (10/20/2024 12:38 PM CDT) [facility] Sodium 144 135 - 145 mmol/L Potassium, pl 4.5 3.3 - 4.9 mmol/L [facility] Chloride 105 97 - 110 mmol/L [facility] CO2 30 22 - 32 mmol/L [facility] Anion gap 9 2 - 15 mmol/L [facility] BUN 36(H) 6 - 25 mg/dL [facility] Creatinine 1.93(H) 0.80 - 1.30 mg/dL [facility] Glucose 74 70 - 199 mg/dL [facility] Comment: Interpretive Data Fasting glucose >/= 126 mg/dl is diagnostic for diabetes. Fasting is defined as no caloric intake for at least 8 hours. Fasting glucose between 100 mg/dl to 125 mg/dl is diagnostic of prediabetes. In a patient with classic symptoms of hyperglycemia or hyperglycemic crisis, a random glucose >/= 200 mg/dl is diagnostic for diabetes. In the absence of unequivocal hyperglycemia, results should be confirmed by repeat testing. The classification and Diagnosis of Diabetes Diabetes Care 202; 46: S19-S40. Current interpretive data was last revised 2022. Calcium 10.5(H) 8.5 - 10.3 mg/dL [facility] Bilirubin, total 0.6 0.1 - 1.2 mg/dL [facility] Protein, pl 7.5 6.5 - 8.5 g/dL [facility] Albumin 4.7 3.5 - 5.0 g/dL [facility] Alk phos 91 40 - 130 Units/L [facility] ALT 21 7 - 55 Units/L [facility] AST 34 10 - 50 Units/L [facility] Blood 10/20/2024 12:3 8 PM CDT 10/20/2024 4:02 PM CDT us Vanessa Cooney MD LAB BLOOD ORDERABLES Final Result [facility] [place] [address] * Lipid panel (10/20/2024 12:38 PM CDT) [facility] Cholesterol 123 30 - 199 mg/dL Comment: Interpretive Data Ages < or = 19 years Acceptable: <170 mg/dL Borderline high: 170-199 mg/dL High: >or= 200 mg/dL Ages > or = 20 years Desirable: <200 mg/dL Borderline high: 200-239 mg/dL High: >or= 240 mg/dL Literature References: 1. Expert Panel on Integrated Guidelines for Cardiovascular Health and Risk Reduction in Children and Adolescents. Pediatrics 2011;128:S213 2. NCEP Expert Panel. Circulation 2004;110:227 Current Interpretive Data was last revised on 2017. Triglycerides 96 <=149 mg/dL [facility] Comment: Interpretive Data Ages < or = 9 years Acceptable: <75 mg/dL Borderline high: 75-99 mg/dL High: >or= 100 mg/dL Ages 10 to 20 years Acceptable: <90 mg/dL Borderline high: 90-129 mg/dL High: >or= 130 mg/dL Ages > or = 20 years Desirable: <150 mg/dL Borderline high: 150-199 mg/dL High: 200-499 mg/dL Very high: >or= 499 mg/dL Literature References: 1. Expert Panel on Integrated Guidelines for Cardiovascular Health and Risk Reduction in Children and Adolescents. Pediatrics 2011;128:S213 2. NCEP Expert Panel. Circulation 2004;110:227 Current Interpretive Data was last revised on 2017. HDL 47 >=40 mg/dL [facility] Comment: Interpretive Data Ages < or = 19 years Acceptable: >45 mg/dL Borderline low: 40-45 mg/dL Low: <40 mg/dL Ages > or = 20 years Desirable: >or= 60 mg/dL Low: <40 mg/dL Literature References: 1. Expert Panel on Integrated Guidelines for Cardiovascular Health and Risk Reduction in Children and Adolescents. Pediatrics 2011;128:S213 2. NCEP Expert Panel. Circulation 2004;110:227 Current Interpretive Data was last revised on 2017. LDL, calculated 58 <=129 mg/dL [facility] Comment: Interpretive Data Ages < or = 19 years Acceptable: <110 mg/dL Borderline high: 110-129 mg/dL High: >or= 130 mg/dL Ages > or = 20 years Optimal: <100 mg/dL Near optimal: 100-129 mg/dL Borderline high: 130-159 mg/dL High: >160 mg/dL Calculated using the Edwin LDL-C estimating equation. This equation was implemented on 2023. Prior to this date LDL-C was estimated using the Friedewald equation. Literature References: 1. Expert Panel on Integrated Guidelines for Cardiovascular Health and Risk Reduction in Children and Adolescents. Pediatrics 2011;128:S213 2. NCEP Expert Panel. Circulation 2004;110:227 3. Pineda M et al. CADY Cardiol. 2020 July 22;5(5):540-548. doi: 10.1001/jamacardio.2020.0013 Current Interpretive Data was last revised on 2023. Non-HDL Cholesterol 76 mg/dL [facility] Comment: Interpretive Data Ages < or = 19 years Acceptable: <120 mg/dL Borderline high: 120-144 mg/dL High: >145 mg/dL Ages > or = 20 years When triglycerides are >200 mg/dL, Non-HDL cholesterol is a secondary target of therapy with treatment goals that are 30 mg/dL greater than the LDL cholesterol target. Literature References: 1. Expert Panel on Integrated Guidelines for Cardiovascular Health and Risk Reduction in Children and Adolescents. Pediatrics 2011;128:S213 2. NCEP Expert Panel. Circulation 2004;110:227 Current Interpretive Data was last revised on 2017. Chol/HDL ratio 3 [facility] Blood 10/20/2024 12:3 8 PM CDT 10/20/2024 4:02 PM CDT Vanessa Conoey MD LAB BLOOD ORDERABLES Final Result [facility] [place] [address] * TSH (10/20/2024 12:38 PM CDT) Thyroid Stimulating Hormone 1.82 0.30 - 4.20 mcIUnit/mL Blood 10/20/2024 12:3 8 PM CDT 10/20/2024 4:02 PM CDT Vanessa Cooney MD LAB BLOOD ORDERABLES Final Result Performing Organization Address City/State/[facility] Co de Phone Number [facility] [place] [address] * PSA diagnostic (10/20/2024 12:38 PM CDT) PSA-Total 0.03 <=6.20 ng/mL Comment: Interpretive Data AGE SEX REFERENCE INTERVAL 0 minutes-150 years Female None 0 minutes-49 years Male None 50-59 years Male 0-3.90 60-69 years Male 0-5.40 70-79 years Male 0-6.20 80-150 years Male 0-6.20 The Erich PSA Total assay procedure was used. Results from different manufacturers or methods may not be comparable. Serial testing should be performed using the same method. Current interpretive data last revised 21. Blood 10/20/2024 12:3 8 PM CDT 10/20/2024 4:02 PM CDT us Vanessa Cooney MD LAB BLOOD ORDERABLES Final Result Performing Organization Address City/[facility] Co de Phone Number [facility] [place] [address] * (ABNORMAL) Total testosterone (10/20/2024 12:38 PM CDT) Testosterone <5.0(L) 193.0 - 740.0 ng/dL Blood 10/20/2024 12:3 8 PM CDT 10/20/2024 4:02 PM CDT us Vanessa Cooney MD LAB BLOOD ORDERABLES Final Result Performing Organization Address City/[facility] Co de Phone Number [facility] [place] [address] documented in this encounter Visit Diagnoses Diagnosis Annual physical exam- Primary Routine general medical examination at a health care facility Essential hypertension Unspecified essential hypertension Prostate cancer (HCC) Malignant neoplasm of prostate Stage 3a chronic kidney disease (HCC) History of squamous cell carcinoma excision Personal history of non-Hodgkin lymphomas NICM (nonischemic cardiomyopathy) (HCC) Permanent atrial fibrillation (HCC) Atrial fibrillation S/P placement of cardiac pacemaker Chronic heart failure with preserved ejection fraction (HCC) Alzheimer's disease (HCC) Alzheimer's disease Nonrheumatic aortic valve stenosis Chronic bilateral low back pain without sciatica documented in this encounter Discontinued Medications Medication Sig Discontinue Reason Start Date End Da te potassium chloride ER (KLOR-CON) 10 mEq CR tablet Take 2 tablet/capsule (20 mEq total) by mouth daily 04/13/2024 10/20/2024 rosuvastatin (CRESTOR) 40 mg tabletIndications:finnegan ry artery disease,hyperlipidemia Take 1 tablet (40 mg total) by mouth nightly 04/20/2024 10/20/2024 documented as of this encounter Care Teams It Architect Relationship Specialty Start Date End Date Vanessa Cooney MD [address] [facility] [address] [place] [address] PCP - General Internal Medicine 10/07/22 Jensen Guevara MD [address] [facility] [address] [place] [address] Referring Physician Dermatology 05/04/22 Myron Whitaker MD [address] [facility] [address] DIV IM MEDICAL ONCOLOGY, [address]A, [address]B, [address] [place] [address] Medical Oncology 04/08/24 Oumar Figueroa MD [address] DIV SURG UROLOGY, [address] [place] [address] Consulting Physician Urology 04/08/24 Jose Alfredo Rushing MD [address] [facility] [address] DEPT RADIATION ONCOLOGY, [place] [address] Radiation Oncologist Radiation Oncology 04/08/24 documented as of this encounter
--- OUTSIDE RECORDS SUMMARY | 2024-10-21 21:42 | XMS_ITS | Encounter Summary ---
Author Organization [facility] Address [address] [facility] [address] [place] [address] Phone Care Team Providers Care Cutter Machine Tender Name Role Phone Jensen Guevara MD Unavailable [phone] Vanessa Cooney MD Primary Care Provider + [phone] Myron Whitaker MD Unavailable [phone] Oumar Figueroa MD Unavailable + [phone] Jose Alfredo Rushing MD Unavailable [phone] Encounter Details Date Type Department Care Team (Late st Contact Info) Description 10/21/2024 [facility] [address] [facility] Advanced Medicine 5th [place] [address] [place] [address] Brittny Boogie MD [address] [facility] [address] [place] [address] Social History Tobacco Use Types Packs/Day Years [...] on file Legal 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 Paramedics are at the home and will transport him to [facility]> documented in this encounter Plan of Treatment Not on [...] the likelihood of falling Lifestyle No Anita Mendieta RN Note: Below are four things you [...] on stairs Contact your local community or [facility] for information on exercise, fall prevention programs, or options for improving home safety. documented as of this encounter Visit Diagnoses Not on filedocumented in this encounter Care Teams Cutter Machine Tender Relationship Specialty Start Date End Date Vanessa Cooney MD [address] [facility] [address] [place] [address] PCP - General Internal Medicine 10/07/22 Jensen Guevara MD [address] [facility] [address] [place] [address] Referring Physician Dermatology 05/04/22 Myron Whitaker MD [address] [facility] DIV IM MEDICAL ONCOLOGY, [address]A, [address]B, [address] [place] [address] Medical Oncology 04/08/24 Oumar Figueroa MD [address] DIV SURG UROLOGY, [address] [place] [address] Consulting Physician Urology 04/08/24 Jose Alfredo Rushing MD [address] [facility] DEPT RADIATION ONCOLOGY, [place] [address] Radiation Oncologist Radiation Oncology 04/08/24 documented as of this encounter
--- OUTSIDE RECORDS SUMMARY | 2024-10-21 21:42 | XMS_ITS | Encounter Summary ---
Author Organization [facility] Healthcare Address [address] [place] [address] Care Team Providers Care Riverboat Captain Name Role Phone Jensen Guevara MD Unavailable [phone] Vanessa Cooney MD Primary Care Provider + [phone] Myron Whitaker MD Unavailable [phone] Oumar Figueroa MD Unavailable [phone] Jose Alfredo Rushign MD Unavailable [phone] Encounter Details Date Type Department Care Team (Latest Contact Info) Description 10/20/2024 2:19 PM CDT - 10/20/2024 11:59 PM CDT Hospital Encounter [address] [address] Prostate cancer (HCC); NICM (nonischemic cardiomyopathy) (HCC); Essential hypertension Discharge Disposition: Discharge to home or self care Social History Tobacco Use Types Packs/Day Years [...] you are drinking? 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 Gender Identity Male 03/20/2021 5:05 PM DRAPERY EXAMINER Sexual Orientation Not on file documented as of this encounter Medications at Time of Discharge acetaminophen (TYLENOL) 500 mg tablet Take 2 tablets (1,000 mg total) by mouth 2 (two) times a day apixaban (ELIQUIS) 2.5 mg tabletIndications: atrial fibrillation Take 1 tablet (2.5 mg total) by mouth 2 (two) times a day 180 tablet 3 09/09/2024 6 aspirin 81 mg enteric coated tablet Take 1 tablet (81 mg total) by mouth every other day bicalutamide (CASODEX) 50 mg tabletIndications: Prostate cancer (HCC) Take 1 tablet (50 mg total) by mouth daily 30 tablet 5 05/06/2024 5 cholecalciferol (VITAMIN D-3) 5,000 unit tabletIndications: Vitamin D Deficiency Take 1 tablet (5,000 Units total) by mouth nightly cyanocobalamin, vitamin B-12, (VITAMIN B-12 ORAL)Indications:s upplement Take 1 tablet by mouth every morning donepeziL (ARICEPT) 10 mg tabletIndications: memory Take 1 tablet (10 mg total) by mouth daily with breakfast 90 tablet 3 02/23/[address] (CYMBALTA) 30 mg capsuleIndications :Mood change Take 1 capsule (30 mg total) by mouth daily 06/15/2024 empagliflozin (JARDIANCE) 10 mg tablet Take 1 tablet (10 mg total) by mouth daily 30 tablet 11 04/13/2024 furosemide (LASIX) 20 mg tablet Take 1 tablet (20 mg total) by mouth 2 (two) times a day 180 tablet 3 05/07/2024 gentamicin (GARAMYCIN) 0.1 % ointmentIndication s:Bacterial Skin and Skin Structure Infection Apply 1 Application topically as needed 02/21/2022 memantine (NAMENDA) 10 mg tabletIndications: Moderate to Severe Alzheimer's Type Dementia Take 1 tablet (10 mg total) by mouth 2 (two) times a day 90 tablet 3 03/15/2024 metoprolol XL (TOPROL-XL) 25 mg extended release tablet Take 1 tablet (25 mg total) by mouth daily 90 tablet 2 04/26/2024 6 rosuvastatin (CRESTOR) 20 mg tablet Take 1 tablet (20 mg total) by mouth daily 30 tablet 1 10/20/2024 6 triamcinolone (KENALOG) 0.1 % cream Apply 1 g topically 2 (two) times a day as needed for irritation documented as of this encounter Discharge Disposition Disposition Code Departure Means Destination Discharge to home or self care documented in this encounter Plan of Treatment [...] home safety. documented as of this encounter Procedures Procedure Name Priority Date/Time Associated Diagnosis Comments EGFR Routine 10/20/2024 12:38 PM CDT Essential hypertension DIFFERENTIAL AUTO Routine 10/20/2024 12: 38 PM CDT Essential hypertension URINALYSIS AND REFLEX TO MICROSCOPIC Routine 10/20/2024 12:38 PM CDT Essential hypertension CBC WITH AUTO DIFFERENTIAL Routine 10/20/2024 12:38 PM CDT Essential hypertension TSH Routine 10/20/2024 12:38 PM CDT NICM (nonischemic cardiomyopathy) (HCC) TOTAL TESTOSTERONE Routine 10/20/2024 12 :38 PM CDT Prostate cancer (HCC) PSA DIAGNOSTIC Routine 10/20/2024 12:38 PM CDT Prostate cancer (HCC) LIPID PANEL Routine 10/20/2024 12:38 PM CDT NICM (nonischemic cardiomyopathy) (HCC) COMPREHENSIVE METABOLIC PANEL Routine 10/20/2024 12:38 PM CDT Essential hypertension documented in this encounter Results * (ABNORMAL) eGFR (10/20/2024 12:38 PM CDT) eGFR 34(L) >=60 mL/min/1. 73 m2 Comment: Interpretive Data Reference Interval Normal >/= 90 mL/min/1.73m2 Mildly decreased* 60 - 89 mL/min/1.73m2 Mildly to moderately decreased 45 - 59 mL/min/1.73m2 Moderately to severely decreased 30 - 44 mL/min/1.73m2 Severely decreased 15 - 29 mL/min/1.73m2 Kidney Failure < 15 mL/min/1.73m2 *Relative to young adult level Estimated glomerular filtration rate is determined by the 2020 CKD-EPI equation recommended by the National Kidney Foundation (A Unifying Approach to GFR Estimation: Recommendations of the NKF-ASK Task Force on Reassessing the Inclusion of Race in Diagnosing Kidney Disease, JASN 2020). The CKD-EPI equation should not be used for patients with unstable renal function and has not been validated in children and those over 70. Current interpretive data was last reviewed 2021. Blood 10/20/2024 12:3 8 PM CDT 10/20/2024 4:13 PM CDT us Vanessa Cooney MD LAB BLOOD ORDERABLES Final Result [facility] Department [place] [address] * (ABNORMAL) Differential, auto (10/20/2024 12:38 PM CDT) Neutrophil abs 4.80 1.50 - 6.50 K/cumm Imm gran abs 0.02 0.00 - 0.10 K/cumm [facility] Lymphocyte abs 3.24 0.80 - 3.30 K/cumm [facility] Monocyte abs 1.16(H) 0.20 - 0.80 K/cumm [facility] Eosinophil abs 0.32 0.00 - 0.50 K/cumm [facility] Basophil abs 0.06 0.00 - 0.10 K/cumm [facility] Neutrophil pct 50.0 % [facility] Comment: Interpretive Data Percent cell count reference ranges are not reported, since discordance with absolute values may lead to misinterpretation of CBC data. Current Interpretive Data was last revised on 2017. Imm gran pct 0.2 % [facility] Comment: Interpretive Data Percent cell count reference ranges are not reported, since discordance with absolute values may lead to misinterpretation of CBC data. Current Interpretive Data was last revised on 2017. Lymphocyte pct 33.8 % [facility] Comment: Interpretive Data Percent cell count reference ranges are not reported, since discordance with absolute values may lead to misinterpretation of CBC data. Current Interpretive Data was last revised on 2017. Monocyte pct 12.1 % [facility] Comment: Interpretive Data Percent cell count reference ranges are not reported, since discordance with absolute values may lead to misinterpretation of CBC data. Current Interpretive Data was last revised on 2017. Eosinophil pct 3.3 % [facility] Comment: Interpretive Data Percent cell count reference ranges are not reported, since discordance with absolute values may lead to misinterpretation of CBC data. Current Interpretive Data was last revised on 2017. Basophil pct 0.6 % [facility] Comment: Interpretive Data Percent cell count reference ranges are not reported, since discordance with absolute values may lead to misinterpretation of CBC data. Current Interpretive Data was last revised on 2017. Blood 10/20/2024 12:3 8 PM CDT 10/20/2024 4:02 PM CDT us Vanessa Cooney MD LAB BLOOD ORDERABLES Final Result [facility] Department [place] [address] * (ABNORMAL) Urinalysis reflex to microscopic (10/20/2024 12:38 PM CDT) Color, ur Straw Yellow Clarity, ur Clear Clear [facility] Specific gravity, ur 1.011 1.003 - 1.030 [facility] pH, urine 5.0 [facility] Comment: Interpretive Data U rine pH is affected by diet, medications, systemic acid-base disturbances, and renal tubular function. pH may affect urinary stone formation. For example, urine pH below 6.0 may help reduce the tendency for calcium phosphate stones and pH greater than 6.0 may reduce the tendency for uric acid stone formation. Source: [facility] [place] Current Interpretive Data was last revised on 2017 Protein, ur ql Negative Negative [facility] Glucose, ur ql 3+(A) Negative [facility] Ketones, ur Negative Negative [facility] Bilirubin, ur Negative Negative [facility] Blood, ur Negative Negative [facility] Urobilinogen, ur <2.0 <2.0 mg/dL [facility] Nitrite, ur Negative Negative [facility] Leukocyte esterase, ur Negative Negative [facility] UA reflex comment Reflex conditions for microscopic UA not met. [facility] Urine 10/20/2024 12:3 8 PM CDT 10/20/2024 4:02 PM CDT Vanessa Cooney MD LAB URINE ORDERABLES Final Result [facility] Department [place] [address] * (ABNORMAL) CBC with auto differential (10/20/2024 12:38 PM CDT) Pathologist [facility] WBC 9.60 3.80 - 9.90 K/cumm Hgb 14.7 13.0 - 17.5 g/dL [facility] Hct 45.1 38.9 - 50.3 % [facility] Plt 238 150 - 400 K/cumm [facility] MPV 11.6 9.1 - 12.3 fL [facility] RBC 4.39 4.30 - 5.80 M/cumm [facility] MCV 102.7(H) 81.3 - 96.4 fL [facility] MCH 33.5(H) 27.1 - 33.3 pg [facility] MCHC 32.6 32.3 - 35.7 g/dL [facility] RDW CV 14.8 11.1 - 14.9 % [facility] RDW SD 55.6(H) 35.7 - 48.1 fL [facility] NRBC abs 0.00 0.00 - 0.01 K/cumm [facility] Blood 10/20/2024 12:3 8 PM CDT 10/20/2024 4:02 PM CDT us Vanessa Cooney MD LAB BLOOD ORDERABLES Final Result [facility] [place] [address] * (ABNORMAL) Comprehensive metabolic panel (10/20/2024 12:38 PM CDT) Pathologist [facility] Sodium 144 135 - 145 mmol/L Potassium, pl 4.5 3.3 - 4.9 mmol/L [facility] Chloride 105 97 - 110 mmol/L [facility] CO2 30 22 - 32 mmol/L [facility] Anion gap 9 2 - 15 mmol/L [facility] BUN 36(H) 6 - 25 mg/dL [facility] Creatinine 1.93(H) 0.80 - 1.30 mg/dL [facility] Glucose 74 70 - 199 mg/dL [facility] Comment: Interpretive Data Fasting glucose [...] 2022. Calcium 10.5(H) 8.5 - 10.3 mg/dL [facility] Bilirubin, total 0.6 0.1 - 1.2 mg/dL [facility] Protein, pl 7.5 6.5 - 8.5 g/dL [facility] Albumin 4.7 3.5 - 5.0 g/dL [facility] Alk phos 91 40 - 130 Units/L [facility] ALT 21 7 - 55 Units/L [facility] AST 34 10 - 50 Units/L [facility] Blood 10/20/2024 12:3 8 PM CDT 10/20/2024 4:02 PM CDT us Vanessa Cooney MD LAB BLOOD ORDERABLES Final Result [facility] Department of Laboratories [place], [place] [id number] * Lipid panel (10/20/2024 12:38 PM CDT) Pathologist [facility] Cholesterol 123 30 - 199 mg/dL Comment: [...] revised on 2017. Triglycerides 96 <=149 mg/dL [facility] Comment: Interpretive Data Ages < [...] revised on 2017. HDL 47 >=40 mg/dL [facility] Comment: Interpretive Data Ages < [...] on 2017. LDL, calculated 58 <=129 mg/dL [facility] Comment: Interpretive Data Ages < or = 19 years Acceptable: <110 mg/dL Borderline high: 110-129 mg/dL High: >or= 130 mg/dL Ages > or = 20 years Optimal: <100 mg/dL Near optimal: 100-129 mg/dL Borderline high: 130-159 mg/dL High: >160 mg/dL Calculated using the Pineda LDL-C estimating equation. This equation was implemented on 2023. Prior to this date LDL-C was estimated using the Friedewald equation. Literature References: 1. Expert Panel on Integrated Guidelines for Cardiovascular Health and Risk Reduction in Children and Adolescents. Pediatrics 2011;128:S213 2. NCEP Expert Panel. Circulation 2004;110:227 3. Edwin Dangelo et al. CADY Cardiol. 2019July 22;5(5):540-548. doi: 10.1001/jamacardio.2020.0013 Current Interpretive Data was last revised on 2023. Non-HDL Cholesterol 76 mg/dL [facility] Comment: Interpretive Data Ages < [...] last revised on 2017. Chol/HDL ratio 3 [facility] Blood 10/20/2024 12:3 8 PM CDT 10/20/2024 4:02 PM CDT us Vanessa Cooney MD LAB BLOOD ORDERABLES Final Result Performing Organization Address City/[facility]/ZIP Co de Phone Number [facility] Department [place] [address] * TSH (10/20/2024 12:38 PM CDT) Thyroid Stimulating Hormone 1.82 0.30 - 4.20 mcIUnit/mL Blood 10/20/2024 12:3 8 PM CDT 10/20/2024 4:02 PM CDT us Vanessa Coonye MD LAB BLOOD ORDERABLES Final Result [facility] [place] [address] * PSA diagnostic (10/20/2024 12:38 PM CDT) [...] BLOOD ORDERABLES Final Result Performing Organization Address City/[facility]/ZIP Co de Phone Number [facility] [place] [address] * (ABNORMAL) Total testosterone (10/20/2024 12:38 PM CDT) Testosterone <5.0(L) 193.0 - 740.0 ng/dL Blood 10/20/2024 12:3 8 PM CDT 10/20/2024 4:02 PM CDT Vanessa Cooney MD LAB BLOOD ORDERABLES Final Result [facility] [place] [address] documented in this encounter Visit Diagnoses Diagnosis Prostate cancer (HCC) Malignant neoplasm of prostate NICM (nonischemic cardiomyopathy) (HCC) Essential hypertension Unspecified essential hypertension documented in this encounter Care Teams Riverboat Captain Relationship Specialty Start Date End Date Vanessa Cooney MD [address] [facility] [address] [place] [address] PCP - General Internal Medicine 10/07/22 Jensen Guevara MD [address] [place] [address] Referring Physician Dermatology 05/04/22 Myron Whitaker MD [address] DIV IM MEDICAL ONCOLOGY, [address] [place] [address] Medical Oncology 04/08/24 Oumar Figueroa MD [address] DIV SURG UROLOGY, [address] [place] [address] Consulting Physician Urology 04/08/24 Jose Alfredo Rushing MD [address] DEPT RADIATION ONCOLOGY, [place] [address] Radiation Oncologist Radiation Oncology 04/08/24 documented as of this encounter
--- OUTSIDE RECORDS SUMMARY | 2024-10-21 21:42 | XMS_ITS | Clinical Summary ---
Author Organization [facility] Address [address] [place] [address] Care Team Providers Care Ham Sawyer Name Role Phone Jensen Guevara MD Unavailable [phone] Vanessa Cooney MD Primary Care Provider + [phone] Myron Whitaker MD Unavailable [phone] Oumar Figueroa MD Unavailable [phone] Jose Alfredo Rushing MD Unavailable [phone] Allergies Active Allergy Reactions Criticality Noted Date Comments Mirtazapine Fatigue Low 06/18/2024 Oversedated in the morning Medications cholecalciferol (VITAMIN D-3) 5,000 unit tabletIndicatio ns:Vitamin D Deficiency Take 1 tablet (5,000 Units total) by mouth nightly Active acetaminophen (TYLENOL) 500 mg tablet Take 2 tablets (1,000 mg total) by mouth 2 (two) times a day Active gentamicin (GARAMYCIN) 0.1 % ointmentIndicat ions:Bacterial Skin and Skin Structure Infection Apply 1 Application topically as needed 02/22/20 22 Active aspirin 81 mg enteric coated tablet Take 1 tablet (81 mg total) by mouth every other day Active triamcinolone (KENALOG) 0.1 % cream Apply 1 g topically 2 (two) times a day as needed for irritation Active cyanocobalamin, vitamin B-12, (VITAMIN B-12 ORAL)Indication s:supplement Take 1 tablet by mouth every morning Active donepeziL (ARICEPT) 10 mg tabletIndicatio ns:memory Take 1 tablet (10 mg total) by mouth daily with breakfast 90 tablet 3 02/23/20 24 Active memantine (NAMENDA) 10 mg tabletIndicatio ns:Moderate to Severe Alzheimer's Type Dementia Take 1 tablet (10 mg total) by mouth 2 (two) times a day 90 tablet 3 03/15/20 24 Active empagliflozin (JARDIANCE) 10 mg tablet Take 1 tablet (10 mg total) by mouth daily 30 tablet 11 04/13/19 25 Active metoprolol XL (TOPROL-XL) 25 mg extended release tablet Take 1 tablet (25 mg total) by mouth daily 90 tablet 2 04/26/19 25 026 Active bicalutamide (CASODEX) 50 mg tabletIndicatio ns:Prostate cancer (HCC) Take 1 tablet (50 mg total) by mouth daily 30 tablet 5 05/06/19 25 025 Active furosemide (LASIX) 20 mg tablet Take 1 tablet (20 mg total) by mouth 2 (two) times a day 180 tablet 3 05/07/[address] (CYMBALTA) 30 mg capsuleIndicati ons:Mood change Take 1 capsule (30 mg total) by mouth daily 06/16/19 25 Active apixaban (ELIQUIS) 2.5 mg tabletIndicatio ns:atrial fibrillation Take 1 tablet (2.5 mg total) by mouth 2 (two) times a day 180 tablet 3 09/10/19 25 026 Active rosuvastatin (CRESTOR) 20 mg tablet Take 1 tablet (20 mg total) by mouth daily 30 tablet 1 10/21/19 25 026 Active potassium chloride ER (KLOR-CON) 10 mEq CR tablet Take 2 tablet/capsule (20 mEq total) by mouth daily 90 tablet 3 04/13/19 25 025 Discontinued rosuvastatin (CRESTOR) 40 mg tabletIndicatio ns:coronary artery disease,hyperli pidemia Take 1 tablet (40 mg total) by mouth nightly 04/20/19 25 025 Discontinued QUEtiapine (SEROquel) 25 mg tablet Take 1-2 tablets (25-50 mg total) by mouth nightly 60 tablet 6 08/24/19 025 Discontinued Active Problems Problem Noted Date Diagnosed Date NICM (nonischemic cardiomyopathy) 04/26/2024 Assessment & Plan (04/26/2024 12:17 PM BOXING INSTRUCTOR): NICM/ICM with LVEF of 49%. Acute on Chronic systolic heart failure with some signs of congestion on physical exam. NYHA class II findings. His weight is up today. Increase lasix to 20 mg BID and messaged nephrology team to see if we can add entresto, continue hydral for now, will resume a low dose BB and continue Jardiance 10mg daily. Metoprolol 25 mg xl daily. Lab work in [address] Terrell in 3 months. Chronic heart failure with preserved ejection fr action 04/20/2024 Prostate cancer 03/05/2024 Cancer Staging:Clinical stage from 05/06/2024:Stage ANDREI(cT1c, cN1, cM0, PSA: 12, Grade Group: 5) - Signed by Myron Whitaker MD on 05/06/2024 Hypersomnia 07/24/2023 Personal history of non-Hodgkin lymphomas 2022 History of bradycardia 04/16/2022 Overview (10/15/2023): Presence of pacer History of squamous cell carcinoma excision 02/22 Overview (03/14/2022): He has a history of NMSC, with most recent Mohs for SCC of right cheek, and now with another SCC on his posterior right chin. Referred to dermatologic surgery. Follows with Dr. Guevara in dermatology Stage 3 chronic kidney disease 03/14/2022 Overview (03/14/2022): Baseline Cr 1.4-1.5 S/P placement of cardiac pacemaker 12/17/2021 Overview (12/26/2021): LUANA Hubbard MRI pacemaker ([id number] #[id number]), RV Lead (5076-58#[id number]): Assessment & Plan (04/26/2024 11:58 AM BOXING INSTRUCTOR): Will resume low dose bb. Assessment & Plan (01/08/2024 4:15 PM CDT): Single chamber pacemaker is functioning appropriately as programmed Lead impedances, sensing, and thresholds are stable No programming changes Continue remote monitoring quarterly Follow up in 1 year for device check Aortic stenosis 07/12/2021 Overview (03/14/2022): TTE 09/2021 showed moderate , moderate AR; normal LV size with moderate LVH, LVEF 61%; normal RV size and function. The appears largely similar compared to 2020. Follows with Dr. Terrell in cardiology. Assessment & Plan (04/26/2024 12:09 PM BOXING INSTRUCTOR): Mild and Mild AI on ECHO 03/2024. Assessment & Plan (04/17/2023 8:46 PM BOXING INSTRUCTOR): Moderate on recent cardiac cath from 02/25/23. Remains asymptomatic. Continue routine monitoring. Assessment & Plan (12/17/2021 8:17 AM CDT): Most recent TTE 09/2021 calcified aortic valve with moderate aortic stenosis and moderate aortic regurgitation -Repeat TTE 12/12 showing calcified aortic valve, moderate aortic stenosis and moderate aortic regurgitation Assessment & Plan (12/16/2021 9:45 AM CDT): Most recent TTE 09/2021 calcified aortic valve with moderate aortic stenosis and moderate aortic regurgitation -Repeat TTE 12/12 showing calcified aortic valve, moderate aortic stenosis and moderate aortic regurgitation Assessment & Plan (12/15/2021 11:12 AM CDT): Most recent TTE 09/2021 calcified aortic valve with moderate aortic stenosis and moderate aortic regurgitation -Repeat TTE 12/12 showing calcified aortic valve, moderate aortic stenosis and moderate aortic regurgitation Assessment & Plan (12/14/2021 11:01 AM CDT): Most recent TTE 09/2021 calcified aortic valve with moderate aortic stenosis and moderate aortic regurgitation -Repeat TTE 12/12 showing calcified aortic valve, moderate aortic stenosis and moderate aortic regurgitation Assessment & Plan (12/13/2021 10:15 AM CDT): Most recent TTE 09/2021 calcified aortic valve with moderate aortic stenosis and moderate aortic regurgitation -Repeat TTE 12/12 showing calcified aortic valve, moderate aortic stenosis and moderate aortic regurgitation Assessment & Plan (12/12/2021 1:57 PM CDT): Most recent TTE 09/2021 calcified aortic valve with moderate and moderate AR. -repeat TTE Permanent atrial fibrillation 07/05/2021 Overview (03/14/2022): He has permanent atrial fibrillation with slow ventricular response as well as LBB, s/p Medtronic single chamber permanent pacemaker 12/17/2021 . On apixaban for stroke prevention. Follows with Dr. Guallpa in EP; they have discussed ROM as potential option in setting of mAb trials for his Alzheimer dementia, as well as potential for increased bleeding risk in setting of amyloid angiopathy; his Fazekas score was severe with 1-3 microbleeds in 2020. Assessment & Plan (04/26/2024 11:58 AM BOXING INSTRUCTOR): Eliquis. Assessment & Plan (01/08/2024 4:14 PM CDT): Permanent atrial fibrillation with slow ventricular response and LBBB s/p Medtronic single chamber permanent pacemaker 12/17/2021 Continue Eliquis for stroke risk reduction Assessment & Plan (04/17/2023 8:30 PM BOXING INSTRUCTOR): Stable with no complaints. Continue Eliquis 5 mg BID for stroke prophylaxis. Assessment & Plan (12/17/2021 8:16 AM CDT): Permanent atrial fibrillation with slow ventricular response on home apixaban. CHADS-VASc = 4 (Age > 75 yrs, HTN, CHF, Valvular disease) -Currently in A. Fib with slow ventricular response HR ~ 40bpm on telemetry (asymptomatic) -Electrophysiology consulted for bradycardia and consideration of permanent pacemaker, discussed PPM placement now vs. discharge with 30 day event monitor and re-evaluation for PPM outpatient f/u with Dr. Guallpa-pt and family would like PPM now -plan for PPM today -Holding home Eliquis for invasive procedures- hold SQ Lovenox for procedure -Telemetry monitoring -Ambulatory referral to sleep medicine ordered for outpatient sleep study Assessment & Plan (12/16/2021 9:46 AM CDT): Permanent atrial fibrillation with slow ventricular response on home apixaban. CHADS-VASc = 4 (Age > 75 yrs, HTN, CHF, Valvular disease) -Currently in A. Fib with slow ventricular response HR ~ 40bpm on telemetry (asymptomatic) -Electrophysiology consulted for bradycardia and consideration of permanent pacemaker, discussed PPM placement now vs. discharge with 30 day event monitor and re-evaluation for PPM outpatient f/u with Dr. Guallpa-pt and family would like PPM now -tentative plan for PPM placement this week -Holding home Eliquis for invasive procedures-continue SQ Lovenox for now -Telemetry monitoring -Ambulatory referral to sleep medicine ordered for outpatient sleep study Assessment & Plan (12/15/2021 11:14 AM CDT): Permanent atrial fibrillation with slow ventricular response on home apixaban. CHADS-VASc = 4 (Age > 75 yrs, HTN, CHF, Valvular disease) -Currently in A. Fib with slow ventricular response HR ~ 40bpm on telemetry (asymptomatic) -Electrophysiology consulted for bradycardia and consideration of permanent pacemaker, discussed PPM placement now vs. discharge with 30 day event monitor and re-evaluation for PPM outpatient f/u with Dr. Maspt and family would like PPM now -Planning for PPM placement with electrophysiology sometime next week -Holding home Eliquis for invasive procedures -Telemetry monitoring -Ambulatory referral to sleep medicine ordered for outpatient sleep study Assessment & Plan (12/14/2021 11:10 AM CDT): Permanent atrial fibrillation with slow ventricular response on home apixaban. CHADS-VASc = 4 (Age > 75 yrs, HTN, CHF, Valvular disease) -Currently in A. Fib with slow ventricular response HR ~ 40bpm on telemetry (asymptomatic) -Electrophysiology consulted for bradycardia and consideration of permanent pacemaker, discussed PPM placement now vs. discharge with 30 day event monitor and re-evaluation for PPM outpatient f/u with Dr. Guallpa -Patient expressed wanting to go home with 30 -day event monitor yesterday -Family had a meeting yesterday and they would like the patient to stay in house for PPM placement -Will discuss timing of PPM placement with electrophysiology -Holding home Eliquis for possible invasive procedures -Telemetry monitoring -Ambulatory referral to sleep medicine ordered for outpatient sleep study Assessment & Plan (12/13/2021 10:18 AM CDT): Permanent atrial fibrillation on home apixaban. CHADS-VASc = 5 (Age > 75 yrs, HTN, CHF, Valvular disease) -Currently in A. Fib with slow ventricular response HR ~ 40bpm -Holding home apixaban for now -EP consulted for consideration of permanent pacemaker -Telemetry monitoring Assessment & Plan (12/12/2021 1:54 PM CDT): On home apixaban. -currently in afib with slow ventricular response HR ~ 40 -holding home apixaban for now -EP consult for consideration of permanent pacemaker -tele Essential hypertension 07/05/2021 Overview (10/25/2021): Goal blood pressure <140/90 given age, falls risk, and Alzheimer dementia. On amlodipine, irbesartan, and hydralazine. Follows with Dr. Terrell in cardiology Assessment & Plan (04/17/2023 8:35 PM BOXING INSTRUCTOR): Well controlled. Continue Amlodipine, hydralazine and irbesartan. Pending labs today. Assessment & Plan (12/17/2021 8:16 AM CDT): -continue home amlodipine 10 mg daily, hydralazine 20 mg BID, and irbesartan 300 mg daily Assessment & Plan (12/16/2021 9:45 AM CDT): -Continue home amlodipine 10 mg daily, hydralazine 20 mg BID, and irbesartan 300 mg daily Assessment & Plan (12/15/2021 11:12 AM CDT): -Continue home amlodipine 10 mg daily, hydralazine 20 mg BID, and irbesartan 300 mg daily Assessment & Plan (12/14/2021 11:03 AM CDT): -Continue home amlodipine 10 mg daily, hydralazine 20 mg BID, and irbesartan 300 mg daily Assessment & Plan (12/13/2021 10:10 AM CDT): -Continue home amlodipine 10 mg daily, hydralazine 20 mg BID, and irbesartan 300 mg daily Assessment & Plan (12/12/2021 1:55 PM CDT): -continue home amlodipine 10 mg daily, hydralazine 20 mg BID, and irbesartan 300 mg daily Personal history of Hodgkin lymphoma 07/05/2021 Overview (07/12/2021): He has a history of Hodgkin lymmphome s/p splenectomy in 2005, non-Hodgkin lymphoma s/p chemoradiation 2009. Follows with Dr. Ty at [facility]. Spondylosis of lumbosacral r egion without myelopathy or radiculopathy 04/07/2021 Overview (10/29/2021): History of chronic low back pain. Lumbar spine MRI 10/2019 showed mild to moderate multilevel degenerative disc and joint disease. He follows with pain medicine and has a moderate response to SI joint injections in the past, which provide about 2-3 weeks of pain relief. The pain is worse with bending, twisting, and lifting objects. He has ongoing physical therapy which has been helpful. Also on duloxetine and scheduled acetaminophen. Follows with Dr. Garza in pain management BPH (benign prostatic hyperplasia) 12/22/2018 Overview (07/05/2021): S/p laser therapy in 2019. Chronic intermittent incontinence. History of elevated PSA, prostate MRI in 2020 without any abnormalities. Follows with Dr. Figueroa in urology Alzheimer's disease Overview (03/14/2022): Multiyear history of gradual onset and progressive amnestic-predominant cognitive impairment consistent with Alzheimer dementia. Positive amyloid PET. Brain MRI with white matter changes and frontotemporal atrophy. He remains largely functionally independent, his assists with medications and finances. He continues to drive without issue. He had improvement in his cognition following pacemaker for a-fib with slow ventricular response that was symptomatic. He is on donepezil and memantine. [place] [facility] [place] & Plan (12/17/2021 8:17 AM CDT): -continue home donepezil 10 mg daily and memantine 10 mg BID Assessment & Plan (12/16/2021 9:45 AM CDT): -Continue home donepezil 10 mg daily and memantine 10 mg BID Assessment & Plan (12/15/2021 11:12 AM CDT): -Continue home donepezil 10 mg daily and memantine 10 mg BID Assessment & Plan (12/14/2021 11:01 AM CDT): -Continue home donepezil 10 mg daily and memantine 10 mg BID Assessment & Plan (12/13/2021 10:13 AM CDT): -Continue home donepezil 10 mg daily and memantine 10 mg BID Assessment & Plan (12/12/2021 1:51 PM CDT): -continue home donepezil 10 mg daily and memantine 10 mg BID Resolved Problems Problem Noted Date Diagnosed Date Resolved Date Snoring 07/24/2023 04/20/2024 Coronary artery disease invo lving [place] coronary artery of [place] heart without angina pectoris 02/26/2023 04/20/2024 Overview (02/26/2023): See cath report 02/26/23 Assessment & Plan (04/17/2023 8:45 PM BOXING INSTRUCTOR): Apical LV akinesis on TTE from 02/03/23. He underwent a LHC on 02/25/23 noting significant CAD involving the LAD. Plan was to monitor and treat medically. If evidence of angina or heart failure will proceed with revascularization. He remains asymptomatic with a good functional capacity. Continue Amlodipine, hydralazine, irbesartan, rosuvastatin and eliquis at current doses. FLP today. Chest pain 02/03/2023 10/15/2023 High grade prostatic intraep ithelial neoplasia 06/03/2022 04/20/2024 Overview (02/24/2024): Biopsy with Dr. Figueroa 05/28/2022 with focal high grade prostatic intraepithelial neoplasia Elevated PSA 04/16/2022 04/20/2024 Bladder stone 12/22/2018 07/05/2021 Overview (12/22/2018): Added automatically from request for surgery [id number] Encounters Date Type Department Care Team Description 10/21/2024 Telephone [facility] [address] [facility] [address] [place] [address] Brittny Boogie MD 10/20/2024 2:19 PM CDT - 10/20/2024 11:59 PM CDT Hospital Encounter [address] [address] Prostate cancer (HCC); NICM (nonischemic cardiomyopathy) (HCC); Essential hypertension Discharge Disposition: Discharge to home or self care 10/20/2024 10:30 AM CDT Office Visit [facility] [address] [address] [place] [address] Vanessa Cooney MD Annual physical exam (Primary Dx); Essential hypertension; Prostate cancer (HCC); Stage 3a chronic kidney disease (HCC); History of squamous cell carcinoma excision; Personal history of non-Hodgkin lymphomas; NICM (nonischemic cardiomyopathy) (HCC); Permanent atrial fibrillation (HCC); S/P placement of cardiac pacemaker; Chronic heart failure with preserved ejection fraction (HCC); Alzheimer's disease (HCC); Nonrheumatic aortic valve stenosis; Chronic bilateral low back pain without sciatica 10/05/2024 Orders Only [facility] [address] [place] [address] Morteza Curry MD PhD 09/09/2024 Orders Only [facility] [address] 5th [place] [address] [place] [address] Vanessa Cooney MD 08/25/2024 Documentation [facility] [address] [place] [address] Bridget Dennis, AQUATIC LIFE LABORER 08/25/2024 Telephone [facility] [address] 6th [address] [place] [phone] Paulo Wright MD Quetiapine PA 08/19/2024 12:00 PM CDT Infusion [facility]fusion [address] [facility] [address] [place] [address] Prostate cancer (HCC) (Primary Dx) 08/19/2024 10:15 AM CDT Office Visit [facility] [address] [facility] Floor 5 [place] [address] Myron Whitaker MD Prostate cancer (HCC) (Primary Dx) 08/19/2024 10:00 AM CDT Lab [facility] - Lab Collection [address] [place] [address] Prostate cancer (HCC); Acute renal failure superimposed on stage 4 chronic kidney disease, unspecified acute renal failure type (HCC); Chronic heart failure with preserved ejection fraction (HCC) 08/19/2024 9:15 AM CDT Lab [facility] [address] [facility] [address] [place] [address] Prostate cancer (HCC) 08/05/2024 Results Follow-Up [facility] [address] [facility] [place] [address] Marley Terrell MD Transthoracic Echo (TTE) Complete W Doppler/CF 08/04/2024 3:57 PM CDT - 08/04/2024 11:59 PM CDT Hospital Encounter [facility] [address] [facility] 8th [place] [phone] Nonrheumatic aortic valve stenosis Discharge Disposition: Discharge to home or self care from Last 3 Months Immunizations Immunization Administration Dates Next Due Influenza Virus Vaccine Trivalent Mdv 12/27/2023 Influenza, Quad, Adjuvantate d, Intramuscular 11/25/2019 Influenza, Trivalent, High D ose, Split, Preservative Free, Intramuscular 12/23/2017,11/29/2016,01/23/2016,12/14 Influenza, Trivalent, IM (MDV) ,12/16/2016,11/23/2015,01/22,12/31/2012 Influenza, Trivalent, Preser vative Free, Intramuscular 11/26/2013 Influenza, Unspecified 12/22/2018,12/23/2015 Meningococcal MCV4P (Menactra) 01/05/2018,2017 Pneumococcal Conjugate PCV 13 12/22/2013, 013 Pneumococcal Polysaccharide PPV23 12/31/2010 RSV Vaccine, Pref, Recombina nt, Subunit, Adjuvanted, PF, IM (Arexvy) 04/28/2023 Tdap 04/28/2023 ZOSTER Recombinant 05/12/2019,01/21/2019 Surgical History Surgery Date Site/Laterality Comments RI SPLENECTOMY TOTAL SEPARAT E PROCEDURE 03/24/2005 - 03/23/2006 Splenectomy - 2005 (Added by TW Conv) RI LMTD LMPHADEC STAGING SPX PEL&PARA-AORTIC 03/24/2009 - 03/23/2010 Lymphadenectomy - (Added by TW Conv) TONSILLECTOMY/ADENOIDECTOMY 03/24/1947 - 03/23/1948 PROSTATE BIOPSY 05/28/2022 CYSTOSCOPY INSERTION / REMOVAL STENT / STONE 04/09/2019 LASER OF PROSTATE W/ GREEN LIGHT PVP 01/05/2019 CARDIAC CATHETERIZATION 02/25/2023 Right URETERAL STENT PLACEMENT 03/05/2019 CATARACT EXTRACTION W/ INTRAOCULAR LENS IMPLANT 12/22/2021 - 01/21/2022 Bilateral CARDIAC PACEMAKER PLACEMENT 12/17/2021 CARDIAC STENT PLACEMENT 09/02/2023 Medical History Medical History Date Comments Arthritis Cancer (HCC) HODGKIN'S LYMPHO MA,NONHODSKIN'S LYMPHOMA Hypertension Kidney stone Non-Hodgkin's lymphoma (HCC) 9540-1795 Prostatitis Atrial fibrillation (HCC) Depression Hypercholesterolemia Anxiety Aortic stenosis Mild cognitive impairment BPH (benign prostatic hyperplasia) Osteoarthritis Low back pain Bladder stone 12/22/2018 Added automatica lly from request for surgery [id number] Permanent atrial fibrillation (HCC) 07/05/2021 Heart disease Alzheimer's dementia (HCC) History of coronary angiopla sty with insertion of stent Benign prostatic hyperplasia Sleep apnea doesn't use mach ine Family History Medical History Relation Name Comments Nephrolithiasis Brother 1 Family histo ry of kidney stones - (Added by TW Conv) Kidney failure Brother 2 Family histor y of renal failure - (Added by TW Conv) Arthritis Father Seth Andrade) Cancer Father Seth Andrade) Heart attack Father Seth Andrade) Heart disease Father Seth Andrade) Dementia Mother Early Son Anesthesia problems Neg Hx Relation Name Status Comments Brother 1 Brother 2 Father Seth Andrade) Mother Son Social History Tobacco Use Types Packs/Day Years Used Date Smoking Tobacco: Former Cigarettes Q uit: 03/24/1979 Pipe Passive Smoke Exposure: Past Smokeless Tobacco: Never Tobacco Cessation:Counseling Given: Not Answered Alcohol Use Standard Drinks/Week Comments Yes 0 [...] on file Legal Sex Male 9:25 PM BOXING INSTRUCTOR Gender Identity Male 03/20/2021 5:05 PM BOXING INSTRUCTOR Sexual Orientation Not on file Obstetrics History Last Filed Vital Signs Vital Sign Reading Time Taken Comments Blood Pressure 124/78 10/20/2024 11:32 AM CDT Pulse 80 10/20/2024 11:32 AM CDT Temperature 36.3 C (97.3 F) 08/19/2024 10:23 AM CDT Respiratory Rate 16 10/20/2024 11:32 AM CDT Oxygen Saturation 98% 10/20/2024 11:32 AM CDT Inhaled Oxygen Concentration - - Weight 94.3 kg (208 lb) 10/20/2024 11:32 AM CDT Height 170.2 cm (5' 7) 10/20/2024 11:32 AM CDT Body Mass Index 32.58 10/20/2024 11:32 AM CDT Plan of Treatment Health Maintenance Due Date Last Done Comments Depression Screening 1940 Hepatitis B Screening 1958 Covid-19 Vaccine ( - 2023-2 5 season) 2023 01/21/2021, 04/13/2020, 03/30/2020 Well Visit 65+ 10/14/2024 10/15/2023 Influenza Vaccine (#1) 2024 4, 01/26/2021, 03/30/2020, Additional history exists Fall Risk Assessment 04/14/2025 04/14/2024, 03/04/2024, 09/30/2023, Additional history exists DTaP/Tdap/Td Vaccine (2 - Td or Tdap) 04/28/2033 04/28/2023 Pneumococcal vaccine 65+ Completed 014, 01/22/2013, 12/31/2010 Zoster Vaccine Completed 05/12/2019, 01/21/2019 Goals Goal Patient Goal Type Associated Problems Recent Progress Patient-Stated? Author CCM Chronic Pain Care Plan Chronic Care Management No change(10/21 9:48 AM CDT) No Anita Mendieta, RN Note: Problem: Chronic Pain Goals: 1. [...] stairs Contact your local community or [facility] [place] for information on exercise, fall prevention programs, or options for improving home safety. Medical Devices Implanted Type Area Pick Remover Device Identifier Shelf Expiration Date Model / Serial / Lot Chug Angio-Seal Vip 6fr Closere Device [id number] - [id number] - [id number] Implanted:Qty: 1 on 02/25/2023 by Marley Terrell MD at [facility] Collagen Right: Common Femoral Artery Chug 09/10/2023 [id number] / [id number] / [id number] Medtronic [employer] Capsurefix Novus 6.2fr 2mm 58cm Bipolar Screw In Implantable 5076-58 - [id number] - [id number] Implanted:Qty: 1 on 12/17/2021 by John Guallpa MD at [facility] Lead Left: Heart Medtronic Inc 10/24/2023 [id number]- [id number] / [id number] / Medtronic Cardiac Rhythm Mgmt [id number] [place] Pacemaker Cardiac - [id number] - [id number] Implanted:Qty: 1 on 12/17/2021 by John Guallpa MD at [facility] Pacemaker Left: Chest Med[employer] Inc 02/18/2023 [id number] / [id number] / [employer] [id number] Universa 6fr 30cm Radiopaque Soft Positioner Business Department Chair Braid - Sn/A - [id number] Implanted:Qty: 1 on 04/09/2019 by Oumar Figueroa MD at [facility] Stent Right: Ureter [employer] 12/23/2021 [id number] / [id number]/A / [id number] Medtronic Card Vasc Surgery 3.0 X 38mm [employer] Rx Coronary Stent [id number] - [id number] - [id number] Implanted:Qty: 1 on 09/02/2023 by Marley Terrell MD at [facility] Stent Left: Anterior Descending Cornary Artery Medtronic Card Vasc Surgery 06/02/2026 [id number] / [id number] / [id number] Terum[employer]im [employer] Kanika Angio-Seal Vip Bondek-Plus 8fr .038in 70cm Hemostatic Latex Free [id number] - [id number] - [id number] Implanted:Qty: 1 on 09/02/2023 by Marley Terrell MD at [facility] Vascular Closure Device Right: Common Femoral Artery Terumo YoQueVos Kanika 04/14/2024 [id number] / [id number] / [id number] Cardiac Stent Heart Explanted Type Area Pick Remover Device Identifier Shelf Expiration Date Model / Serial / Lot [facility] [facility] [id number] Inlay Marrowbone 7fr 30cm Pusher Fluoro Marker Atraumatic Insertion Latex Free - [id number] Implanted:Qty: 1 on 03/05/2019 by Oumar Figueroa MD at [facility] Explanted:Qty: 1 on 04/09/2019 by Oumar Figueroa MD at [facility] Stent Right: Ureter [employer] 09/02/2022 [id number] / / [id number] Description:Stent removed in tact Procedures Procedure Name Priority Date/Time Associated Diagnosis Comments EGFR Routine 10/20/2024 12:38 PM CDT Essential hypertension DIFFERENTIAL AUTO Routine 10/20/2024 12: 38 PM CDT Essential hypertension URINALYSIS AND REFLEX TO MICROSCOPIC Routine 10/20/2024 12:38 PM CDT Essential hypertension CBC WITH AUTO DIFFERENTIAL Routine 10/20/2024 12:38 PM CDT Essential hypertension COMPREHENSIVE METABOLIC PANEL Routine 10/20/2024 12:38 PM CDT Essential hypertension LIPID PANEL Routine 10/20/2024 12:38 PM CDT NICM (nonischemic cardiomyopathy) (HCC) TSH Routine 10/20/2024 12:38 PM CDT NICM (nonischemic cardiomyopathy) (HCC) PSA DIAGNOSTIC Routine 10/20/2024 12:38 PM CDT Prostate cancer (HCC) TOTAL TESTOSTERONE Routine 10/20/2024 12 :38 PM CDT Prostate cancer (HCC) DEVICE CHECK - REMOTE Routine 10/05/2024 2:39 AM CDT EGFR Routine 08/19/2024 10:04 AM CDT Prostate cancer (HCC) PHOSPHORUS Routine 08/19/2024 10:04 AM CDT Prostate cancer (HCC) DIFFERENTIAL AUTO Routine 08/19/2024 10: 04 AM CDT Prostate cancer (HCC) PSA DIAGNOSTIC Routine 08/19/2024 10:04 AM CDT Prostate cancer (HCC) CBC WITH AUTO DIFFERENTIAL Routine 08/19/2024 10:04 AM CDT Prostate cancer (HCC) COMPREHENSIVE METABOLIC PANEL Routine 08/19/2024 10:04 AM CDT Prostate cancer (HCC) TOTAL TESTOSTERONE Routine 08/19/2024 10 :04 AM CDT Prostate cancer (HCC) TRANSTHORACIC ECHO (TTE) COMPLETE W DOPPLER/CF W CONTRAST Routine 08/04/2024 5:20 PM CDT Nonrheumatic aortic valve stenosis from Last 3 Months Results * (ABNORMAL) eGFR (10/20/2024 12:38 PM [...] 8 PM CDT 10/20/2024 4:13 PM CDT Vanessa Cooney MD LAB BLOOD ORDERABLES Final Result [facility] Department [place] [address] * (ABNORMAL) Differential, auto (10/20/2024 12:38 PM CDT) Pathologist [facility] Neutrophil abs 4.80 1.50 - 6.50 K/cumm Imm gran abs 0.02 0.00 - 0.10 K/cumm [facility] Lymphocyte abs 3.24 0.80 - 3.30 K/cumm [facility] Monocyte abs 1.16(H) 0.20 - 0.80 K/cumm [facility] Eosinophil abs 0.32 0.00 - 0.50 K/cumm [facility] Basophil abs 0.06 0.00 - 0.10 K/cumm [facility] Neutrophil pct 50.0 % [facility] Comment: Interpretive Data Percent cell count reference ranges are not reported, since discordance with absolute values may lead to misinterpretation of CBC data. Current Interpretive Data was last revised on 2017. Imm gran pct 0.2 % [facility] Comment: Interpretive Data Percent cell count reference ranges are not reported, since discordance with absolute values may lead to misinterpretation of CBC data. Current Interpretive Data was last revised on 2017. Lymphocyte pct 33.8 % [facility] Comment: Interpretive Data Percent cell count reference ranges are not reported, since discordance with absolute values may lead to misinterpretation of CBC data. Current Interpretive Data was last revised on 2017. Monocyte pct 12.1 % [facility] Comment: Interpretive Data Percent cell count reference ranges are not reported, since discordance with absolute values may lead to misinterpretation of CBC data. Current Interpretive Data was last revised on 2017. Eosinophil pct 3.3 % [facility] Comment: Interpretive Data Percent cell count reference ranges are not reported, since discordance with absolute values may lead to misinterpretation of CBC data. Current Interpretive Data was last revised on 2017. Basophil pct 0.6 % [facility] Comment: Interpretive Data Percent cell count reference ranges are not reported, since discordance with absolute values may lead to misinterpretation of CBC data. Current Interpretive Data was last revised on 2017. Blood 10/20/2024 12:3 8 PM CDT 10/20/2024 4:02 PM CDT us Vanessa Cooney MD LAB BLOOD ORDERABLES Final Result [facility] Department [place] [address] * (ABNORMAL) Urinalysis reflex to microscopic (10/20/2024 12:38 PM CDT) Color, ur Straw Yellow Clarity, ur Clear Clear [facility] Specific gravity, ur 1.011 1.003 - 1.030 [facility] pH, urine 5.0 [facility] Comment: Interpretive Data U rine pH is affected by diet, medications, systemic acid-base disturbances, and renal tubular function. pH may affect urinary stone formation. For example, urine pH below 6.0 may help reduce the tendency for calcium phosphate stones and pH greater than 6.0 may reduce the tendency for uric acid stone formation. Source: [facility] Current Interpretive Data was last revised on 2017 Protein, ur ql Negative Negative [facility] Glucose, ur ql 3+(A) Negative [facility] Ketones, ur Negative Negative [facility] Bilirubin, ur Negative Negative [facility] Blood, ur Negative Negative [facility] Urobilinogen, ur <2.0 <2.0 mg/dL [facility] Nitrite, ur Negative Negative [facility] Leukocyte esterase, ur Negative Negative [facility] UA reflex comment Reflex conditions for microscopic UA not met. [facility] Urine 10/20/2024 12:3 8 PM CDT 10/20/2024 4:02 PM CDT us Vanessa Cooney MD LAB URINE ORDERABLES Final Result [facility] Department [place] [address] * (ABNORMAL) CBC with auto differential (10/20/2024 12:38 PM CDT) WBC 9.60 3.80 - 9.90 K/cumm Hgb 14.7 13.0 - 17.5 g/dL [facility] Hct 45.1 38.9 - 50.3 % [facility] Plt 238 150 - 400 K/cumm [facility] MPV 11.6 9.1 - 12.3 fL [facility] RBC 4.39 4.30 - 5.80 M/cumm [facility] MCV 102.7(H) 81.3 - 96.4 fL [facility] MCH 33.5(H) 27.1 - 33.3 pg [facility] MCHC 32.6 32.3 - 35.7 g/dL [facility] RDW CV 14.8 11.1 - 14.9 % [facility] RDW SD 55.6(H) 35.7 - 48.1 fL [facility] NRBC abs 0.00 0.00 - 0.01 K/cumm [facility] Blood 10/20/2024 12:3 8 PM CDT 10/20/2024 4:02 PM CDT us Vanessa Cooney MD LAB BLOOD ORDERABLES Final Result Performing Organization Address [facility] Co de Phone Number [facility] [place] [address] * TSH (10/20/2024 12:38 PM CDT) Thyroid Stimulating Hormone 1.82 0.30 - 4.20 mcIUnit/mL Blood 10/20/2024 12:3 8 PM CDT 10/20/2024 4:02 PM CDT us Vanessa Cooney MD LAB BLOOD ORDERABLES Final Result Performing Organization Address [facility] de Phone Number [facility] [place] [address] * (ABNORMAL) Total testosterone (10/20/2024 12:38 PM CDT) Testosterone <5.0(L) 193.0 - 740.0 ng/dL Blood 10/20/2024 12:3 8 PM CDT 10/20/2024 4:02 PM CDT us Vanessa Cooney MD LAB BLOOD ORDERABLES Final Result Performing Organization Address [facility] Co de Phone Number [facility] [place] [address] * PSA diagnostic (10/20/2024 12:38 PM CDT) [...] Cooney MD LAB BLOOD ORDERABLES Final Result [facility] Department [place] [address] * Lipid panel (10/20/2024 12:38 PM CDT) Cholesterol 123 30 - 199 mg/dL Comment: [...] revised on 2017. Triglycerides 96 <=149 mg/dL [facility] Comment: Interpretive Data Ages < or = [...] revised on 2017. HDL 47 >=40 mg/dL [facility] Comment: Interpretive Data Ages < or = [...] on 2017. LDL, calculated 58 <=129 mg/dL [facility] Comment: Interpretive Data Ages < or = [...] NCEP Expert Panel. Circulation 2004;110:227 3. Edwin Herrera al. CADY Cardiol. 2019July 22;5(5):540-548. doi: 10.1001/jamacardio.2020.0013 Current Interpretive Data was last revised on 2023. Non-HDL Cholesterol 76 mg/dL [facility] Comment: Interpretive Data Ages < or = [...] last revised on 2017. Chol/HDL ratio 3 [facility] Blood 10/20/2024 12:3 8 PM CDT 10/20/2024 4:02 PM CDT Vanessa Cooney MD LAB BLOOD ORDERABLES Final Result [facility] Department [place] [address] * (ABNORMAL) Comprehensive metabolic panel (10/20/2024 12:38 PM CDT) Sodium 144 135 - 145 mmol/L Potassium, pl 4.5 3.3 - 4.9 mmol/L [facility] Chloride 105 97 - 110 mmol/L [facility] CO2 30 22 - 32 mmol/L [facility] Anion gap 9 2 - 15 mmol/L [facility] BUN 36(H) 6 - 25 mg/dL [facility] Creatinine 1.93(H) 0.80 - 1.30 mg/dL [facility] Glucose 74 70 - 199 mg/dL [facility] Comment: Interpretive Data Fasting glucose >/= 126 [...] 2022. Calcium 10.5(H) 8.5 - 10.3 mg/dL [facility] Bilirubin, total 0.6 0.1 - 1.2 mg/dL [facility] Protein, pl 7.5 6.5 - 8.5 g/dL [facility] Albumin 4.7 3.5 - 5.0 g/dL [facility] Alk phos 91 40 - 130 Units/L [facility] ALT 21 7 - 55 Units/L [facility] AST 34 10 - 50 Units/L [facility] Blood 10/20/2024 12:3 8 PM CDT 10/20/2024 4:02 PM CDT us Vanessa Cooney MD LAB BLOOD ORDERABLES Final Result [facility] Department [place] [address] * DEVICE CHECK - REMOTE (10/05/2024 2:39 AM CDT) Anatomical Region Laterality Modality Other 10/05/2024 2:39 AM CDT Narrative 10/07/2024 5:40 PM CDT Interpretation Summary: Battery and Leads (BL) Normal parameters noted on battery and lead(s) Presenting Rhythm (RI) Ventricular Pacing (REALTIME REPORTER) Arrhythmic events (AE) No new arrhythmic events in monitoring period Anticoagulation (AC) Patient prescribed Apixaban (Eliquis) Patient on anticoagulant therapy Transmission Information (TI) Device Summary Report Procedure Note Morteza Curry MD PhD - 10/07/2024 Interpretation Summary: Battery and Leads (BL) Normal parameters noted on battery and lead(s) Presenting Rhythm (RI) Ventricular Pacing (REALTIME REPORTER) Arrhythmic events (AE) No new arrhythmic events in monitoring period Anticoagulation (AC) Patient prescribed Apixaban (Eliquis) Patient on anticoagulant therapy Transmission Information (TI) Device Summary Report us Morteza Curry MD PhD [facility] OCEDURES Final Result * (ABNORMAL) eGFR (08/19/2024 10:04 AM CDT) eGFR 35(L) >=60 mL/min/1. 73 m2 Comment: Interpretive Data [...] interpretive data was last reviewed 2021. Blood 08/19/2024 10:0 4 AM CDT 08/19/2024 10:12 AM CDT us Myron Whitaker MD LAB BLOOD ORDERABLES Fin al Result [facility] Department [place] [address] * (ABNORMAL) Differential, auto (08/19/2024 10:04 AM CDT) Neutrophil abs 2.94 1.50 - 6.50 K/cumm Comment:Testing performed by : [facility], [address] [place] [address] Lymphocyte abs 3.26 0.80 - 3.30 K/cumm [facility] Comment:Testing performed by : [facility], [address] [place] [phone] Monocyte abs 1.32(H) 0.20 - 0.80 K/cumm [facility] Comment:Testing performed by : [facility], [address] [place] [phone] Eosinophil abs 0.58(H) 0.00 - 0.50 K/cumm [facility] Comment:Testing performed by : [facility], [address] [place] [address] Basophil abs 0.08 0.00 - 0.10 K/cumm [facility] Comment:Testing performed by : [facility], [address] [place] [phone] Neutrophil pct 35.9 % [facility] Comment: Interpretive Data Percent cell count reference ranges are not reported, since discordance with absolute values may lead to misinterpretation of CBC data. Current Interpretive Data was last revised on 2017. Testing performed by: [facility], [address] [place] [phone] Lymphocyte pct 39.9 % [facility] Comment: Interpretive Data Percent cell count reference ranges are not reported, since discordance with absolute values may lead to misinterpretation of CBC data. Current Interpretive Data was last revised on 2017. Testing performed by: [facility], [address] [place] [phone] Monocyte pct 16.1 % [facility] Comment: Interpretive Data Percent cell count reference ranges are not reported, since discordance with absolute values may lead to misinterpretation of CBC data. Current Interpretive Data was last revised on 2017. Testing performed by: [facility], [address] [place] [phone] Eosinophil pct 7.1 % [facility] Comment: Interpretive Data Percent cell count reference ranges are not reported, since discordance with absolute values may lead to misinterpretation of CBC data. Current Interpretive Data was last revised on 2017. Testing performed by: [facility], [address] [place] [phone] Basophil pct 1.0 % [facility] Comment: Interpretive Data Percent cell count reference ranges are not reported, since discordance with absolute values may lead to misinterpretation of CBC data. Current Interpretive Data was last revised on 2017. Testing performed by: [facility], [address] [place] [phone] Blood 08/19/2024 10:0 4 AM CDT 08/19/2024 10:06 AM CDT us Myron Whitaker MD LAB BLOOD ORDERABLES Fin al Result [facility] Department [place] [address] * (ABNORMAL) CBC with auto differential (08/19/2024 10:04 AM CDT) WBC 8.18 3.80 - 9.90 K/cumm Comment:Testing performed by : [facility], [address] [place] [address] Hgb 14.4 13.0 - 17.5 g/dL [facility] Comment:Testing performed by : [facility], [address] [place] [address] Hct 44.5 38.9 - 50.3 % [facility] Comment:Testing performed by : [facility], [address] [place] [address] Plt 210 150 - 400 K/cumm [facility] Comment:Testing performed by : [facility], [address] [place] [address] MPV 8.3 6.8 - 10.4 fL [facility] Comment:Testing performed by : [facility], [address] [place] [address] RBC 4.54 4.30 - 5.80 M/cumm [facility] Comment:Testing performed by : [facility], [address] [place] [address] MCV 97.9(H) 81.3 - 96.4 fL [facility] Comment:Testing performed by : [facility], [address] [place] [address] MCH 31.7 27.1 - 33.3 pg [facility] Comment:Testing performed by : [facility], [address] [place] [address] MCHC 32.4 32.3 - 35.7 g/dL [facility] Comment:Testing performed by : [facility], [address] [place] [address] RDW CV 19.1(H) 11.1 - 14.9 % [facility] Comment:Testing performed by : [facility], [address] [place] [phone] NRBC abs 0.00 0.00 - 0.01 K/cumm [facility] Comment:Testing performed by : [facility], [address] [place] [address] Blood 08/19/2024 10:0 4 AM CDT 08/19/2024 10:06 AM CDT Myron Whitaker MD LAB BLOOD ORDERABLES Fin al Result Performing Organization Address [facility] Co de Phone Number [facility] [place] [address] * (ABNORMAL) Total testosterone (08/19/2024 10:04 AM CDT) Testosterone <5.0(L) 193.0 - 740.0 ng/dL Blood 08/19/2024 10:0 4 AM CDT 08/19/2024 10:44 AM CDT Myron Whitaker MD LAB BLOOD ORDERABLES Fin al Result Performing Organization Address [facility] de Phone Number [facility] [place] [address] * PSA diagnostic (08/19/2024 10:04 AM CDT) PSA-Total 0.13 <=6.20 ng/mL Comment: Interpretive Data AGE SEX [...] Current interpretive data last revised 21. Blood 08/19/2024 10:0 4 AM CDT 08/19/2024 10:12 AM CDT Myron Whitaker MD LAB BLOOD ORDERABLES Fin al Result [facility] Department [place] [address] * Phosphorus (08/19/2024 10:04 AM CDT) Pathologist [facility] Phosphorus, pl 4.4 2.3 - 4.5 mg/dL Blood 08/19/2024 10:0 4 AM CDT 08/19/2024 10:12 AM CDT Myron Whitaker MD LAB BLOOD ORDERABLES Fin al Result Performing Organization Address [facility] de Phone Number [facility] [place] [address] * (ABNORMAL) Comprehensive metabolic panel (08/19/2024 10:04 AM CDT) Pathologist [facility] Sodium 144 135 - 145 mmol/L Potassium, pl 4.6 3.3 - 4.9 mmol/L [facility] Chloride 106 97 - 110 mmol/L [facility] CO2 30 22 - 32 mmol/L [facility] Anion gap 8 2 - 15 mmol/L [facility] BUN 29(H) 6 - 25 mg/dL [facility] Creatinine 1.86(H) 0.80 - 1.30 mg/dL [facility] Glucose 80 70 - 199 mg/dL [facility] Comment: Interpretive Data Fasting glucose >/= 126 [...] classification and Diagnosis of Diabetes Diabetes Care 2021; 46: S19-S40. Current interpretive data was last revised 2022. Calcium 10.0 8.5 - 10.3 mg/dL [facility] Bilirubin, total 0.5 0.1 - 1.2 mg/dL [facility] Protein, pl 7.2 6.5 - 8.5 g/dL [facility] Albumin 4.3 3.5 - 5.0 g/dL [facility] Alk phos 96 40 - 130 Units/L [facility] ALT 30 7 - 55 Units/L [facility] AST 47 10 - 50 Units/L [facility] Blood 08/19/2024 10:0 4 AM CDT 08/19/2024 10:12 AM CDT us Myron Whitaker MD LAB BLOOD ORDERABLES Fin al Result [facility] Department [place] [address] * TRANSTHORACIC ECHO (TTE) COMPLETE W DOPPLER/CF W CONTRAST (08/04/2024 5:20 PM CDT) EF Mod BP 47 % CONS SCIMAGE Anatomical Region Laterality Modality Ultrasound 08/04/2024 4:12 PM CDT Narrative 08/04/2024 9:45 PM CDT [facility] [place] [place] [address] Transthoracic Echocardiographic Report Patient Name: FIONA LOYA E : 1940 (84y 4m) Gender: M Study Date: 08-04-2024 04:12:27 PM Ht(Inch): 66 Wt(Lb): 203.93 BSA: 2.08 Counsel[facility] Director: Yola Fernandez RDCS Location: [facility] Order Provider: MARLEY TERRELL Heart Rate: 85 BMI: 32.91 BP: 121 / 55 Ref Provider: MARLEY TERRELL PROCEDURES: Echocardiographic Report: Transthoracic complete echo with strain imaging and contrast, 2D, spectral and tissue Doppler, color flow Doppler, M-mode. Contrast: Contrast Enhancement was Employed: After initial imaging due to sub- optimal quality related to co-morbidity defined by patient's body habitus and due to suboptimal image quality with inadequate visualization of at least 2 of 16 LV wall segments in any view after initial imaging. Perflutren contrast was administered using the volume necessary to obtain adequate images. 0.4 ml Optison Administered, (2.6 ml wasted). INDICATIONS: I35.0 Nonrheumatic aortic (valve) stenosis. CONCLUSIONS: 1. Normal left ventricular size based on volume index. Concentric LV hypertrophy. Mildly depressed left ventricular systolic function. The Ejection Fraction (Doran's) is measured at 47 %. Grade II diastolic dysfunction (elevated mean LA pressure). The average global longitudinal strain is abnormal. 2. Resting Segmental Wall Motion Analysis: Total wall motion score is 2.67. There is dyskinesis of the apical inferior to apical inferoseptal wall. There is hypokinesis of the mid to apical anterolateral wall. There is hypokinesis of the apical cap. There is hypokinesis of the mid anteroseptal wall. 3. Normal right ventricular size. 4. Mildly dilated left atrium. 5. Mild aortic valve regurgitation. Low flow low gradient, likely moderate, aortic valve stenosis. PARTH 1.1cm2, DVI 0.36; LV stroke volume (22ml/m2, BP 121/55). 6. Mild tricuspid regurgitation. 7. Mild pulmonic regurgitation. 8. 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 Dilation of the ascending aorta (3.9cm) when indexed. 9. The estimated pulmonary artery systolic pressure is 39.0 mmHg. Estimated pulmonary artery systolic pressure is consistent with mild pulmonary hypertension (35- 50mmHg). COMPARISONS: No change compared to prior study on: 04/20/2024. ATTESTATION: I have personally reviewed and interpreted this study without fellow or resident. - DISCLAIMER: The study images and the final report will be retained in the patient chart by the [facility] for the legally required time period. This chart constitutes the legal record of any testing performed. FINDINGS: Left Ventricle: Normal left ventricular size based on volume index. Concentric LV hypertrophy. Mildly depressed left ventricular systolic function. The Ejection Fraction (Doran's) is measured at 47 %. Grade II diastolic dysfunction (elevated mean LA pressure). The average global longitudinal strain is abnormal. The LV global strain is: -6.1 %. Resting Segmental Wall Motion Analysis: Total wall motion score is 2.67. There is dyskinesis of the apical inferior to apical inferoseptal wall. There is hypokinesis of the mid to apical anterolateral wall. There is hypokinesis of the apical cap. There is hypokinesis of the mid anteroseptal wall. Right Ventricle: Normal right ventricular size. Left Atrium: Mildly dilated left atrium. Right Atrium: The right atrium is normal in size. pacemaker wire noted across RA/RV. Mitral Valve: Moderate mitral annular calcification. No mitral regurgitation. No stenosis present. Aortic Valve: Mildly thickened aortic valve leaflets. Moderately restricted aortic cusps. Mild aortic valve regurgitation. Low flow low gradient, likely moderate, aortic valve stenosis. PARTH 1.1cm2, DVI 0.36; LV stroke volume (22ml/m2, BP 121/55). The mean transaortic gradient is 17 mmHg. The aortic valve area by the continuity equation (using VTI) is 1.1 cm2. Aortic valve dimensionless index is 0.36. Tricuspid Valve: Normal tricuspid valve structure. Mild tricuspid regurgitation. No tricuspid valve stenosis. Pulmonic Valve: Normal pulmonic valve structure. Mild pulmonic regurgitation. No pulmonic valve stenosis present. Pericardium: Normal pericardium without pericardial effusion. Aorta: Mild aortic root dilation at sinuses of Valsalva (3.9cm). Normal aortic root size when indexed. Dilation of the ascending aorta (3.9cm) when indexed. IVC: IVC is normal in size. The IVC was <2.1 cm and collapsibility >50%. (est. RA pressure 0-5 mmHg). The estimated RA pressure is 3 mmHg. PASP: The estimated pulmonary artery systolic pressure is 39.0 mmHg. Estimated pulmonary artery systolic pressure is consistent with mild pulmonary hypertension (35- 50mmHg). Rhythm: Normal Sinus rhythm was seen during the study. MEASUREMENTS: 2D/MM Value Range Doppler Value Range LVIDd 2D 4.59 cm [ 4.20 - 5.80 ] AV Peak Teofilo 2.5 m/s [ 1.0 - 1.7 ] LVIDs 2D 2.89 cm [ 2.50 - 4.00 ] AV Peak PG 25.00 mmHg IVSd 2D 1.53 cm [ 0.60 - 1.00 ] AV Mean PG 17 mmHg LVPWd 2D 1.37 cm [ 0.60 - 1.00 ] AV VTI 47.3 cm LV Thickness Ratio 1.1 LVOT Peak Teofilo 0.8 m/s [ 0.7 - 1.1 ] LV FS 2D 37.06 % [ 25.00 - 43.00 ] LVOT Peak PG 2.56 mmHg LV Mass 2D 272.84 g LVOT Mean PG 1 mmHg LV Mass Index 2D 131.17 g/m2 LVOT VTI 16.8 cm RWT 0.60 LVOT Diam 1.99 cm EDV Mod BP 129.60 ml [ 62.00 - 150.00 ] PARTH VTI 1.10 cm2 LV EDV Index 62.31 ml/m2 LVOT/AV VTI 0.36 - Dimensionless index (DVI) ESV Mod BP 68.23 ml [ 21.00 - 61.00 ] AI Peak Teofilo 3.9 m/s EF Mod BP 47 % [ 52 - 72 ] AI Peak PG 61 mmHg LV GLS -6.1 % [ -25.0 - -18.0 ] AI Decel Time 1818.87 sec LA Length 4C 6.18 cm AI Decel [place] 2.15 m/s2 LA Length 2C 6.30 cm AI PHT 527.47 msec LA Volume BP 71.96 ml Med E` Teofilo 4.4 cm/sec [ 8.0 - 25.0 ] LA Volume Index 34.60 ml/m2 [ 16.00 - 34.00 ] Lat E` Teofilo 7.4 cm/sec [ 10.0 - 25.0 ] RV Base Dimen 2D 4.0 cm [ 2.5 - 4.2 ] TR Peak Teofilo 3.0 m/s [ 1.0 - 2.8 ] RA Volume 45.21 ml TR Peak PG 36.0 mmHg RA Volume Index 21.74 ml/m2 RA Pressure 3 mmHg IVC Diam 1.08 cm RVSP 39.00 mmHg AoR Diam 2D 3.87 cm [ 3.10 - 3.70 ] PV Peak Teofilo 0.8 m/s [ 0.4 - 0.8 ] Ao Root Index 1.86 cm/m2 [ 1.00 - 2.00 ] PV Peak PG 2.56 mmHg Asc Ao Diam 2D 3.89 cm PI ED Teofilo 157.26 m/sec Asc Ao Index 1.87 cm/m2 Electronically Signed By: Clark Cross MD 2024-08-04 21:44:53 CDT Wall Motion Analysis - Resting Procedure Note Clark Cross MD - 08/04/2024 [facility] [place] [address] Transthoracic Echocardiographic Report Patient Name: FIONA LOYA E : 1940 (84y 4m) Gender: M Study Date: 08-04-2024 04:12:27 PM Ht(Inch): 66 Wt(Lb): 203.93 BSA: 2.08 [facility] Director: Yola Fernandez RDCS Location: [facility] Order Provider:MARLEY TERRELL Heart Rate: 85 BMI: 32.91 BP: 121 / 55 Ref Provider: MARLEY TERRELL PROCEDURES: Echocardiographic Report: Transthoracic complete echo with strain imagingand contrast, 2D, spectral and tissue Doppler, color flow Doppler, M-mode. Contrast: Contrast Enhancement was Employed: After initial imaging due tosub- optimal quality related to co-morbidity defined by patient's body habitus and dueto suboptimal image quality with inadequate visualization of at least 2 of 16 LV wallsegments in any view after initial imaging. Perflutren contrast was administered using thevolume necessary to obtain adequate images. 0.4 ml Optison Administered, (2.6 mlwasted). INDICATIONS: I35.0 Nonrheumatic aortic (valve) stenosis. CONCLUSIONS: 1. Normal left ventricular size based on volume index. Concentric LVhypertrophy. Mildly depressed left ventricular systolic function. The Ejection Fraction(Doran's) is measured at 47 %. Grade II diastolic dysfunction (elevated mean LApressure). The average global longitudinal strain is abnormal. 2. Resting Segmental Wall Motion Analysis: Total wall motion score is2.67. There is dyskinesis of the apical inferior to apical inferoseptal wall. There ishypokinesis of the mid to apical anterolateral wall. There is hypokinesis of the apicalcap. There is hypokinesis of the mid anteroseptal wall. 3. Normal right ventricular size. 4. Mildly dilated left atrium. 5. Mild aortic valve regurgitation. Low flow low gradient, likelymoderate, aortic valve stenosis. PARTH 1.1cm2, DVI 0.36; LV stroke volume (22ml/m2, BP 121/55). 6. Mild tricuspid regurgitation. 7. Mild pulmonic regurgitation. 8. 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 Dilation ofthe ascending aorta (3.9cm) when indexed. 9. The estimated pulmonary artery systolic pressure is 39.0 mmHg.Estimated pulmonary artery systolic pressure is consistent with mild pulmonary hypertension(35- 50mmHg). COMPARISONS: No change compared to prior study on: 04/20/2024. ATTESTATION: I have personally reviewed and interpreted this study without fellow orresident. - DISCLAIMER: The study images and the final report will be retained in the patientchart by the [facility] for the legally required time period. This chart constitutesthe legal record of any testing performed. FINDINGS: Left Ventricle: Normal left ventricular size based on volume index.Concentric LV hypertrophy. Mildly depressed left ventricular systolic function. TheEjection Fraction (Doran's) is measured at 47 %. Grade II diastolic dysfunction (elevatedmean LA pressure). The average global longitudinal strain is abnormal. The LVglobal strain is: -6.1 %. Resting Segmental Wall Motion Analysis: Total wall motion score is 2.67.There is dyskinesis of the apical inferior to apical inferoseptal wall. There ishypokinesis of the mid to apical anterolateral wall. There is hypokinesis of the apicalcap. There is hypokinesis of the mid anteroseptal wall. Right Ventricle: Normal right ventricular size. Left Atrium: Mildly dilated left atrium. Right Atrium: The right atrium is normal in size. pacemaker wire notedacross RA/RV. Mitral Valve: Moderate mitral annular calcification. No mitralregurgitation. No stenosis present. Aortic Valve: Mildly thickened aortic valve leaflets. Moderatelyrestricted aortic cusps. Mild aortic valve regurgitation. Low flow low gradient, likely moderate,aortic valve stenosis. PARTH 1.1cm2, DVI 0.36; LV stroke volume (22ml/m2, BP 121/55). Themean transaortic gradient is 17 mmHg. The aortic valve area by the continuityequation (using VTI) is 1.1 cm2. Aortic valve dimensionless index is 0.36. Tricuspid Valve: Normal tricuspid valve structure. Mild tricuspidregurgitation. No tricuspid valve stenosis. Pulmonic Valve: Normal pulmonic valve structure. Mild pulmonicregurgitation. No pulmonic valve stenosis present. Pericardium: Normal pericardium without pericardial effusion. Aorta: Mild aortic root dilation at sinuses of Valsalva (3.9cm). Normalaortic root size when indexed. Dilation of the ascending aorta (3.9cm) when indexed. IVC: IVC is normal in size. The IVC was <2.1 cm and collapsibility >50%.(est. RA pressure 0-5 mmHg). The estimated RA pressure is 3 mmHg. PASP: The estimated pulmonary artery systolic pressure is 39.0 mmHg.Estimated pulmonary artery systolic pressure is consistent with mild pulmonary hypertension(35- 50mmHg). Rhythm: Normal Sinus rhythm was seen during the study. MEASUREMENTS: 2D/MM Value Range DopplerValue Range LVIDd 2D 4.59 cm [ 4.20 - 5.80 ] AV Peak Vel2.5 m/s [ 1.0 - 1.7 ] LVIDs 2D 2.89 cm [ 2.50 - 4.00 ] AV Peak PG25.00 mmHg IVSd 2D 1.53 cm [ 0.60 - 1.00 ] AV Mean PG17 mmHg LVPWd 2D 1.37 cm [ 0.60 - 1.00 ] AV VTI47.3 cm LV Thickness Ratio 1.1 LVOT Peak Vel0.8 m/s [ 0.7 - 1.1 ] LV FS 2D 37.06 % [ 25.00 - 43.00 ] LVOT Peak PG2.56 mmHg LV Mass 2D 272.84 g LVOT Mean PG1 mmHg LV Mass Index 2D 131.17 g/m2 LVOT VTI16.8 cm RWT 0.60 LVOT Diam1.99 cm EDV Mod BP 129.60 ml [ 62.00 - 150.00 ] PARTH VTI1.10 cm2 LV EDV Index 62.31 ml/m2 LVOT/AV VTI0.36 - Dimensionless index (DVI) ESV Mod BP 68.23 ml [ 21.00 - 61.00 ] AI Peak Vel3.9 m/s EF Mod BP 47 % [ 52 - 72 ] AI Peak PG61 mmHg LV GLS -6.1 % [ -25.0 - -18.0 ] AI Decel Qsmj5218.87 sec LA Length 4C 6.18 cm AI Decel [place]2.15 m/s2 LA Length 2C 6.30 cm AI KTB708.47 msec LA Volume BP 71.96 ml Med E` Vel4.4 cm/sec [ 8.0 - 25.0 ] LA Volume Index 34.60 ml/m2 [ 16.00 - 34.00 ] Lat E` Vel7.4 cm/sec [ 10.0 - 25.0 ] RV Base Dimen 2D 4.0 cm [ 2.5 - 4.2 ] TR Peak Vel3.0 m/s [ 1.0 - 2.8 ] RA Volume 45.21 ml TR Peak PG36.0 mmHg RA Volume Index 21.74 ml/m2 RA Pressure3 mmHg IVC Diam 1.08 cm RVSP39.00 mmHg AoR Diam 2D 3.87 cm [ 3.10 - 3.70 ] PV Peak Vel0.8 m/s [ 0.4 - 0.8 ] Ao Root Index 1.86 cm/m2 [ 1.00 - 2.00 ] PV Peak PG2.56 mmHg Asc Ao Diam 2D 3.89 cm PI ED Fiz593.26 m/sec Asc Ao Index1.87 cm/m2 Electronically Signed By: Clark Cross MD 2024-08-04 21:44:53 CDT Wall Motion Analysis - Resting us Marley Terrell MD CV ECHO PROCEDURES Final Result from Last 3 Months Insurance MEDICARE [facility] MEDICARE SUPPLEMENT MEDICARE [facility] [place] MEDICARE MEDICARE [facility] MEDICARE SUPPLEMENT MEDICARE [facility] MEDICARE SUPPLEMENT Advance Directives For more information, please contact: [phone] * Full Code (Latest Code Status on File) Date Activated Date Inactivated Comments 12/24/2023 9:07 AM 12/25/2023 4:44 AM * Full Code Date Activated Date Inactivated Comments 09/02/2023 1:34 PM 09/02/2023 8:51 PM * Full Code Date Activated Date Inactivated Comments 02/25/2023 2:27 PM 02/25/2023 9:17 PM * Full Code Date Activated Date Inactivated Comments 12/11/2021 7:36 PM 12/18/2021 4:25 PM * Full Code Date Activated Date Inactivated Comments 03/05/2019 6:27 PM 03/06/2019 6:29 PM Care Teams Ham Sawyer Relationship Specialty Start Date End Date Vanessa Cooney MD [address] [address] PCP - General Internal Medicine 10/07/22 Jensen Guevara MD [address] [facility] [address] [address] Referring Physician Dermatology 05/04/22 Myron Whitaker MD [address] DIV IM MEDICAL ONCOLOGY, [facility] [address] [place] [address] Medical Oncology 04/08/24 Oumar Figueroa MD [address] DIV SURG UROLOGY, [facility] [address] [place] [address] Consulting Physician Urology 04/08/24 Jose Alfredo Rushing MD [address] DEPT RADIATION ONCOLOGY, [place] [address] Radiation Oncologist Radiation Oncology 04/08/24
--- OUTSIDE RECORDS SUMMARY | 2024-10-21 21:42 | XMS_ITS | Referral Summary ---
Author Organization [facility] Address [address] [place] [address] Care Team Providers Care Manager Flight Name Role Phone Jensen Guevara MD Unavailable [phone] Vanessa Cooney MD Primary Care Provider + [phone] Myron Whitaker MD Unavailable [phone] Oumar Figueroa MD Unavailable + [phone] Jose Alfredo Rushing MD Unavailable [phone] Encounters Date Type Department Care Team Description 10/21/2024 Telephone [facility] [address] [facility] 5th [place] [address] Brittny Boogie MD 10/20/2024 2:19 PM CDT - 10/20/2024 11:59 PM CDT Hospital Encounter [address] [address] Prostate cancer (HCC); NICM (nonischemic cardiomyopathy) (HCC); Essential hypertension Discharge Disposition: Discharge to home or self care 10/20/2024 10:30 AM CDT Office Visit [facility] [address] [facility] [address] 5th [place] [address] Vanessa Cooney MD Annual physical exam (Primary [...] back pain without sciatica 10/05/2024 Orders Only [facility] Cardiology [address] [facility] Building [address] [place] [address] Morteza Curry MD PhD 09/09/2024 Orders Only [facility] [address] [facility] 5th [place] [address] [place] [address] Vanessa Cooney MD 08/25/2024 Documentation [facility] [address] [facility] First Floor [address] [place] [address] Bridget Dennis, DELIVERER FOOD 08/25/2024 Telephone [facility] General Neurology [address] [facility] 6th Floor [address] [place] [id number] Paulo Wright MD Quetiapine PA 08/19/2024 10:00 AM CDT Lab [facility] - Lab Collection [address] [facility] Floor 5 [place] [address] Prostate cancer (HCC); Acute renal failure superimposed on stage 4 chronic kidney disease, unspecified acute renal failure type (HCC); Chronic heart failure with preserved ejection fraction (HCC) 08/19/2024 9:15 AM CDT Lab [facility] Oncology Lab [address] [facility] Floor 5 [place] [address] Prostate cancer (HCC) 08/19/2024 10:15 AM CDT Office Visit [facility] Oncology [facility] [facility] Floor 5 [place] [address] Myron Whitaker MD Prostate cancer (HCC) (Primary Dx) 08/19/2024 12:00 PM CDT Infusion [facility] - Infusion [address] [facility] Floor 6 [place] [address] Prostate cancer (HCC) (Primary Dx) 08/05/2024 Results Follow-Up [facility] [address] [facility] [place] [address] Marley Terrell MD Transthoracic Echo (TTE) Complete W Doppler/CF 08/04/2024 3:57 PM CDT - 08/04/2024 11:59 PM CDT Hospital Encounter [facility] Cardiac Diagnostic Lab [address] [place] [address] 8th [place] [address] Nonrheumatic aortic valve stenosis Discharge Disposition: Discharge to home or self care from Last 3 Months Allergies Active Allergy Reactions Criticality Noted Date [...] by mouth nightly 60 tablet 6 08/24/19 25 025 Discontinued Active Problems Problem Noted Date Diagnosed Date NICM (nonischemic cardiomyopathy) 04/26/2024 Assessment & Plan (04/26/2024 12:17 PM SUB PLANT MANAGER): NICM/ICM with LVEF of 49%. Acute on [...] Overview (12/26/2021): LUANA Hubbard MRI pacemaker (w3SR01 #[id number]), RV Lead (5076-58#[id number]): Assessment & Plan (04/26/2024 11:58 AM SUB PLANT MANAGER): Will resume low dose bb. Assessment & [...] cardiology. Assessment & Plan (04/26/2024 12:09 PM SUB PLANT MANAGER): Mild and Mild AI on ECHO 03/2024. Assessment & Plan (04/17/2023 8:46 PM SUB PLANT MANAGER): Moderate on recent cardiac cath from 02/25/23. [...] score was severe with 1-3 microbleeds in 2019. Assessment & Plan (04/26/2024 11:58 AM SUB PLANT MANAGER): Eliquis. 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 Continue Eliquis 5 [...] Guallpa-pt and family would like PPM now -Planning [...] re-evaluation for PPM outpatient f/u with Dr. Gulalpa -Patient expressed wanting to go home with [...] cardiology Assessment & Plan (04/17/2023 8:35 PM SUB PLANT MANAGER): Well controlled. Continue Amlodipine, hydralazine and irbesartan. [...] chemoradiation 2009. Follows with Dr. Ty at [facility]. 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 Chronic intermittent incontinence. History of elevated PSA, [...] and memantine. [place]. 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 [...] (12/22/2018): Added automatically from request for surgery [id number] Immunizations Immunization Administration Dates Next Due Influenza Virus Vaccine Trivalent Mdv 12/27/2023 Influenza, Quad, Adjuvantate d, Intramuscular 11/25/2019 Influenza, Trivalent, High D ose, Split, Preservative Free, Intramuscular 12/23/2017,11/29/2016,01/23/2016,12/14 Influenza, Trivalent, IM (MDV) 1,12/16/2016,11/23/2015,01/22,12/31/2012 Influenza, Trivalent, Preser vative Free, Intramuscular 11/26/2013 Influenza, Unspecified 12/22/2018,12/23/2015 Meningococcal MCV4P (Menactra) 01/05/2018,2017 Pneumococcal Conjugate PCV 13 12/22/2013, 013 Pneumococcal Polysaccharide PPV23 12/31/2010 RSV Vaccine, Pref, Recombina nt, Subunit, Adjuvanted, PF, IM (Arexvy) 04/28/2023 Tdap 04/28/2023 ZOSTER Recombinant 05/12/2019,01/21/2019 Social History Tobacco Use Types Packs/Day Years [...] on file Legal Sex Male 9:25 PM SUB PLANT MANAGER Gender Identity Male 03/20/2021 5:05 PM SUB PLANT MANAGER Sexual Orientation Not on file Last Filed Vital Signs Vital Sign Reading [...] 10/20/2024 11:32 AM CDT Plan of Treatment Not on file Goals Goal Patient Goal Type Associated Problems [...] on stairs Contact your local community or [facility] for information on exercise, fall prevention programs, or options for improving home safety. Medical Devices Implanted Type Area Assembly Member Device Identifier Shelf Expiration Date Model / Serial / Lot Paice Angio-Seal Vip 6fr Closere Device [id number] - [id number] - [id number] Implanted:Qty: 1 on 02/25/2023 by Marley Terrell MD at [facility] Collagen Right: Common Femoral Artery Paice 09/10/2023 [id number] / [id number] / [id number] Medtronic Inc Capsurefix Novus 6.2fr 2mm 58cm Bipolar Screw In Implantable 5076-58 - [id number] - [id number] Implanted:Qty: 1 on 12/17/2021 by John Guallpa MD at [facility] Lead Left: Heart Medtronic Inc 10/24/2023 5076- 58 / [id number] / Medtronic Cardiac Rhythm Mgmt [id number] Haydee Pacemaker Cardiac - [id number] - [id number] Implanted:Qty: 1 on 12/17/2021 by John Guallpa MD at [facility] Pacemaker Left: Chest Medtronic Inc 02/18/2023 [id number] / [id number] / [employer] [id number] Universa 6fr 30cm Radiopaque Soft Positioner Junk Removal Specialist Braid - Sn/A - [id number] Implanted:Qty: 1 on 04/09/2019 by Oumar Figueroa MD at [facility] Stent Right: Ureter [employer] 12/23/2021 [id number] / N/A / [id number] Medtronic Card Vasc Surgery 3.0 X 38mm Santiago Grafton Rx Coronary Stent [id number] - [id number] - [id number] Implanted:Qty: 1 on 09/02/2023 by Marley Terrell MD at [facility] Stent Left: Anterior Descending Cornary Artery Medtronic Card Vasc Surgery 06/02/2026 [id number] / [id number] / [id number] Paice Angio-Seal Vip Bondek-Plus 8fr .038in 70cm Hemostatic Latex Free [id number] - [id number] - [id number] Implanted:Qty: 1 on 09/02/2023 by Marley Terrell MD at [facility] Vascular Closure Device Right: Common Femoral Artery Terumo Medical Kanika 04/14/2024 [id number] / [id number] / [id number] Cardiac Stent Heart Explanted Type Area Assembly Member Device Identifier Shelf Expiration Date Model / Serial / Lot [employer] [id number] Inlay [place] 7fr 30cm Pusher Fluoro Marker Atraumatic Insertion Latex Free - [id number] Implanted:Qty: 1 on 03/05/2019 by Oumar Figueroa MD at [facility] Explanted:Qty: 1 on 04/09/2019 by Oumar Figueroa MD at [facility] Stent Right: Ureter [employer] 09/02/2022 [id number] / / [id number] Description:Stent removed in tact Procedures Procedure Name [...] Inclusion of Race in Diagnosing Kidney Disease, VAUGHNSKai 2020). The CKD-EPI equation should not be used for patients with unstable renal function and has not been validated in children and those over 70. Current interpretive data was last reviewed 2021. Blood 10/20/2024 12:3 8 PM CDT 10/20/2024 4:13 PM CDT us Vanessa Cooney MD LAB BLOOD ORDERABLES Final Result [facility] [address] [facility] [place] [address] * (ABNORMAL) Differential, auto (10/20/2024 12:38 PM CDT) Neutrophil abs 4.80 1.50 - 6.50 K/cumm Imm gran abs 0.02 0.00 - 0.10 K/cumm [facility] Lymphocyte abs 3.24 0.80 - 3.30 K/cumm [facility] Monocyte abs 1.16(H) 0.20 - 0.80 K/cumm [facility] Eosinophil abs 0.32 0.00 - 0.50 K/cumm [facility] Basophil abs 0.06 0.00 - 0.10 K/cumm [facility] Neutrophil pct 50.0 % [facility] Comment: Interpretive Data Percent cell count reference ranges are not reported, since discordance with absolute values may lead to misinterpretation of CBC data. Current Interpretive Data was last revised on 2017. Imm gran pct 0.2 % [facility] Comment: Interpretive Data Percent cell count reference ranges are not reported, since discordance with absolute values may lead to misinterpretation of CBC data. Current Interpretive Data was last revised on 2017. Lymphocyte pct 33.8 % [facility] Comment: Interpretive Data Percent cell count reference ranges are not reported, since discordance with absolute values may lead to misinterpretation of CBC data. Current Interpretive Data was last revised on 2017. Monocyte pct 12.1 % [facility] Comment: Interpretive Data Percent cell count reference ranges are not reported, since discordance with absolute values may lead to misinterpretation of CBC data. Current Interpretive Data was last revised on 2017. Eosinophil pct 3.3 % [facility] Comment: Interpretive Data Percent cell count reference ranges are not reported, since discordance with absolute values may lead to misinterpretation of CBC data. Current Interpretive Data was last revised on 2017. Basophil pct 0.6 % [facility] Comment: Interpretive Data Percent cell count reference ranges are not reported, since discordance with absolute values may lead to misinterpretation of CBC data. Current Interpretive Data was last revised on 2017. Blood 10/20/2024 12:3 8 PM CDT 10/20/2024 4:02 PM CDT us Vanessa Cooney MD LAB BLOOD ORDERABLES Final Result [facility] [address] [facility] [place] [address] * (ABNORMAL) Urinalysis reflex to microscopic (10/20/2024 12:38 PM CDT) Color, ur Straw Yellow Clarity, ur Clear Clear [facility] Specific gravity, ur 1.011 1.003 - 1.030 [facility] pH, urine 5.0 [facility] Comment: Interpretive Data U rine pH is affected by diet, medications, systemic acid-base disturbances, and renal tubular function. pH may affect urinary stone formation. For example, urine pH below 6.0 may help reduce the tendency for calcium phosphate stones and pH greater than 6.0 may reduce the tendency for uric acid stone formation. Source: [facility] Current Interpretive Data was last revised on 2017 Protein, ur ql Negative Negative [facility] Glucose, ur ql 3+(A) Negative [facility] Ketones, ur Negative Negative [facility] Bilirubin, ur Negative Negative [facility] Blood, ur Negative Negative [facility] Urobilinogen, ur <2.0 <2.0 mg/dL [facility] Nitrite, ur Negative Negative [facility] Leukocyte esterase, ur Negative Negative [facility] UA reflex comment Reflex conditions for microscopic UA not met. [facility] Urine 10/20/2024 12:3 8 PM CDT 10/20/2024 4:02 PM CDT Vanessa Cooney MD LAB URINE ORDERABLES Final Result Performing Organization Address City/[facility]/ZIP Co de Phone Number [facility] [place] [address] * (ABNORMAL) CBC with auto differential (10/20/2024 12:38 PM CDT) WBC 9.60 3.80 - 9.90 K/cumm Hgb 14.7 13.0 - 17.5 g/dL [facility] Hct 45.1 38.9 - 50.3 % [facility] Plt 238 150 - 400 K/cumm [facility] MPV 11.6 9.1 - 12.3 fL [facility] RBC 4.39 4.30 - 5.80 M/cumm [facility] MCV 102.7(H) 81.3 - 96.4 fL [facility] MCH 33.5(H) 27.1 - 33.3 pg [facility] MCHC 32.6 32.3 - 35.7 g/dL [facility] RDW CV 14.8 11.1 - 14.9 % [facility] RDW SD 55.6(H) 35.7 - 48.1 fL [facility] NRBC abs 0.00 0.00 - 0.01 K/cumm [facility] Blood 10/20/2024 12:3 8 PM CDT 10/20/2024 4:02 PM CDT us Vanessa Cooney MD LAB BLOOD ORDERABLES Final Result Performing Organization Address City/[facility]/ZIP Co de Phone Number [facility] [place] [address] * TSH (10/20/2024 12:38 PM CDT) Thyroid Stimulating Hormone 1.82 0.30 - 4.20 mcIUnit/mL Blood 10/20/2024 12:3 8 PM CDT 10/20/2024 4:02 PM CDT us Vanessa Cooney MD LAB BLOOD ORDERABLES Final Result Performing Organization Address City/[facility] Co de Phone Number [facility] [place] [address] * (ABNORMAL) Total testosterone (10/20/2024 12:38 PM CDT) Pathologist [facility] Testosterone <5.0(L) 193.0 - 740.0 ng/dL Blood 10/20/2024 12:3 8 PM CDT 10/20/2024 4:02 PM CDT us Vanessa Cooney MD LAB BLOOD ORDERABLES Final Result Performing Organization Address City/[facility] de Phone Number [facility] [place] [address] * PSA diagnostic (10/20/2024 12:38 PM CDT) [...] LAB BLOOD ORDERABLES Final Result [facility] [place] [address] * Lipid panel (10/20/2024 12:38 PM CDT) [...] on 2017. Triglycerides 96 <=149 mg/dL [facility] Comment: Interpretive Data Ages < or = [...] revised on 2017. HDL 47 >=40 mg/dL [facility] Comment: Interpretive Data Ages < or = [...] on 2017. LDL, calculated 58 <=129 mg/dL [facility] Comment: Interpretive Data Ages < [...] revised on 2023. Non-HDL Cholesterol 76 mg/dL [facility] Comment: Interpretive Data Ages < [...] last revised on 2017. Chol/HDL ratio 3 [facility] Blood 10/20/2024 12:3 8 PM CDT 10/20/2024 4:02 PM CDT us Vanessa Cooney MD LAB BLOOD ORDERABLES Final Result [facility] [address] [facility] [place] [address] * (ABNORMAL) Comprehensive metabolic panel (10/20/2024 12:38 PM CDT) Sodium 144 135 - 145 mmol/L Potassium, pl 4.5 3.3 - 4.9 mmol/L [facility] Chloride 105 97 - 110 mmol/L [facility] CO2 30 22 - 32 mmol/L [facility] Anion gap 9 2 - 15 mmol/L [facility] BUN 36(H) 6 - 25 mg/dL [facility] Creatinine 1.93(H) 0.80 - 1.30 mg/dL [facility] Glucose 74 70 - 199 mg/dL [facility] Comment: Interpretive Data Fasting glucose [...] 2022. Calcium 10.5(H) 8.5 - 10.3 mg/dL [facility] Bilirubin, total 0.6 0.1 - 1.2 mg/dL [facility] Protein, pl 7.5 6.5 - 8.5 g/dL [facility] Albumin 4.7 3.5 - 5.0 g/dL [facility] Alk phos 91 40 - 130 Units/L [facility] ALT 21 7 - 55 Units/L [facility] AST 34 10 - 50 Units/L [facility] Blood 10/20/2024 12:3 8 PM CDT 10/20/2024 4:02 PM CDT us Vanessa Cooney MD LAB BLOOD ORDERABLES Final Result [facility] [place] [address] * DEVICE CHECK - REMOTE (10/05/2024 2:39 AM CDT) Anatomical Region Laterality Modality Other 10/05/2024 2:39 AM CDT Narrative 10/07/2024 5:40 PM CDT Interpretation Summary: Battery and Leads (BL) Normal parameters noted on battery and lead(s) Presenting Rhythm (IN) Ventricular Pacing (CUSHION SEWER) Arrhythmic events (AE) No new arrhythmic events in monitoring period Anticoagulation (AC) Patient prescribed Apixaban (Eliquis) Patient on anticoagulant therapy Transmission Information (TI) Device Summary Report Procedure Note Morteza Curry MD PhD - 10/07/2024 Interpretation Summary: Battery and Leads (BL) Normal parameters noted on battery and lead(s) Presenting Rhythm (IN) Ventricular Pacing (CUSHION SEWER) Arrhythmic events (AE) No new arrhythmic events in monitoring period Anticoagulation (AC) Patient prescribed Apixaban (Eliquis) Patient on anticoagulant therapy Transmission Information (TI) Device Summary Report Morteza Curry MD PhD [facility] Final Result * (ABNORMAL) eGFR (08/19/2024 [...] MD LAB BLOOD ORDERABLES Fin al Result [facility] [place] [address] * (ABNORMAL) Differential, auto (08/19/2024 10:04 AM CDT) Neutrophil abs 2.94 1.50 - 6.50 K/cumm Comment:Testing performed by : [facility] Heme [facility], [address] [place] [address] Lymphocyte abs 3.26 0.80 - 3.30 K/cumm [facility] Comment:Testing performed by : [facility] Heme [facility], [address] [place], [place] [phone] Monocyte abs 1.32(H) 0.20 - 0.80 K/cumm [facility] Comment:Testing performed by : [facility] Heme [facility], [address] [place], [place] [phone] Eosinophil abs 0.58(H) 0.00 - 0.50 K/cumm [facility] Comment:Testing performed by : [facility] Heme [facility], [address] [place] [phone] Basophil abs 0.08 0.00 - 0.10 K/cumm [facility] Comment:Testing performed by : [facility] Heme [facility], [address] [place] [phone] Neutrophil pct 35.9 % [facility] Comment: Interpretive Data Percent cell count reference ranges are not reported, since discordance with absolute values may lead to misinterpretation of CBC data. Current Interpretive Data was last revised on 2017. Testing performed by: [facility]e [facility], [address] [place] [phone] Lymphocyte pct 39.9 % [facility] Comment: Interpretive Data Percent cell count reference ranges are not reported, since discordance with absolute values may lead to misinterpretation of CBC data. Current Interpretive Data was last revised on 2017. Testing performed by: [facility]e [facility], [address] [place] [phone] Monocyte pct 16.1 % [facility] Comment: Interpretive Data Percent cell count reference ranges are not reported, since discordance with absolute values may lead to misinterpretation of CBC data. Current Interpretive Data was last revised on 2017. Testing performed by: [facility], [address] [place], [place] [phone] Eosinophil pct 7.1 % [facility] Comment: Interpretive Data Percent cell count reference ranges are not reported, since discordance with absolute values may lead to misinterpretation of CBC data. Current Interpretive Data was last revised on 2017. Testing performed by: [facility] Lab, [address] [place] [phone] Basophil pct 1.0 % [facility] Comment: Interpretive Data Percent cell count reference ranges are not reported, since discordance with absolute values may lead to misinterpretation of CBC data. Current Interpretive Data was last revised on 2017. Testing performed by: [facility] Lab, [address] [place] [phone] Blood 08/19/2024 10:0 4 AM CDT 08/19/2024 10:06 AM CDT us Myron Whitaker MD LAB BLOOD ORDERABLES Fin al Result [facility] [place] [address] * (ABNORMAL) CBC with auto differential (08/19/2024 10:04 AM CDT) WBC 8.18 3.80 - 9.90 K/cumm Comment:Testing performed by : [facility] Lab, [address] [place] [phone] Hgb 14.4 13.0 - 17.5 g/dL [facility] Comment:Testing performed by : [facility] Heme Lab, [address] [place] [address] Hct 44.5 38.9 - 50.3 % [facility] Comment:Testing performed by : [facility]e Lab, [address] [place], [place] [phone] Plt 210 150 - 400 K/cumm [facility] Comment:Testing performed by : [facility] Heme Lab, [address] [place] [address] MPV 8.3 6.8 - 10.4 fL [facility] Comment:Testing performed by : [facility] Heme Lab, [address] [place] [address] RBC 4.54 4.30 - 5.80 M/cumm [facility] Comment:Testing performed by : [facility] Heme Lab, [address] [place], [place] [phone] MCV 97.9(H) 81.3 - 96.4 fL [facility] Comment:Testing performed by : [facility] Heme Lab, [address] [place] [address] MCH 31.7 27.1 - 33.3 pg [facility] Comment:Testing performed by : [facility]e Lab, [address] [place] [address] MCHC 32.4 32.3 - 35.7 g/dL [facility] Comment:Testing performed by : [facility]e Lab, [address] [place] [address] RDW CV 19.1(H) 11.1 - 14.9 % [facility] Comment:Testing performed by : [facility]e Lab, [address] [place] [address] NRBC abs 0.00 0.00 - 0.01 K/cumm [facility] Comment:Testing performed by : [facility], [address] [place] [address] Blood 08/19/2024 10:0 4 AM CDT 08/19/2024 10:06 AM CDT us Myron Whitaker MD LAB BLOOD ORDERABLES Fin al Result Performing Organization Address City/[facility] Co de Phone Number [facility] [place] [address] * (ABNORMAL) Total testosterone (08/19/2024 10:04 AM CDT) Testosterone <5.0(L) 193.0 - 740.0 ng/dL Blood 08/19/2024 10:0 4 AM CDT 08/19/2024 10:44 AM CDT Myron Whitaker MD LAB BLOOD ORDERABLES Fin al Result Performing Organization Address [facility] de Phone Number [facility] [place] [address] * PSA diagnostic (08/19/2024 10:04 AM CDT) [...] ORDERABLES Fin al Result Performing Organization Address [facility] Co de Phone Number [facility] [place] [address] * Phosphorus (08/19/2024 10:04 AM CDT) Phosphorus, pl 4.4 2.3 - 4.5 mg/dL Blood 08/19/2024 10:0 4 AM CDT 08/19/2024 10:12 AM CDT us Myron Whitaker MD LAB BLOOD ORDERABLES Fin al Result [facility] [place] [address] * (ABNORMAL) Comprehensive metabolic panel (08/19/2024 10:04 AM CDT) Pathologist [facility] Sodium 144 135 - 145 mmol/L Potassium, pl 4.6 3.3 - 4.9 mmol/L [facility] Chloride 106 97 - 110 mmol/L [facility] CO2 30 22 - 32 mmol/L [facility] Anion gap 8 2 - 15 mmol/L [facility] BUN 29(H) 6 - 25 mg/dL [facility] Creatinine 1.86(H) 0.80 - 1.30 mg/dL [facility] Glucose 80 70 - 199 mg/dL [facility] Comment: Interpretive Data Fasting glucose [...] 2022. Calcium 10.0 8.5 - 10.3 mg/dL [facility] Bilirubin, total 0.5 0.1 - 1.2 mg/dL [facility] Protein, pl 7.2 6.5 - 8.5 g/dL [facility] Albumin 4.3 3.5 - 5.0 g/dL [facility] Alk phos 96 40 - 130 Units/L [facility] ALT 30 7 - 55 Units/L [facility] AST 47 10 - 50 Units/L [facility] Blood 08/19/2024 10:0 4 AM CDT 08/19/2024 10:12 AM CDT us Myron Whitaker MD LAB BLOOD ORDERABLES Fin al Result [facility] [place] [address] * TRANSTHORACIC ECHO (TTE) COMPLETE W DOPPLER/CF W CONTRAST (08/04/2024 5:20 PM CDT) EF Mod BP 47 % CONS SCIMAGE Anatomical Region Laterality Modality Ultrasound 08/04/2024 4:12 PM CDT Narrative 08/04/2024 9:45 PM CDT [facility] [place] [address] Transthoracic Echocardiographic Report Patient Name: FIONA LOYA E : 1940 (84y 4m) Gender: M Study Date: 08-04-2024 04:12:27 PM Ht(Inch): 66 Wt(Lb): 203.93 BSA: 2.08 Open Hearth Helper: Yola Fernandez RDCS Location: [facility] Order Provider: MARLEY TERRELL Heart Rate: 85 [...] LA Length 4C 6.18 cm AI Decel Chase 2.15 m/s2 LA Length 2C 6.30 cm [...] Procedure Note Clark Cross MD - 08/04/2024 [facility] Cardiac [place] [address] Transthoracic Echocardiographic Report Patient Name: FIONA LOYA E : 1940 (84y 4m) Gender: M Study Date: 08-04-2024 04:12:27 PM Ht(Inch): 66 Wt(Lb): 203.93 BSA: 2.08 Open Hearth Helper: Yola Fernandez RDCS Location: [facility] Order Provider:MARLEY TERRELL Heart Rate: 85 BMI: [...] [ -25.0 - -18.0 ] AI Decel [id number] sec LA Length 4C 6.18 cm AI Decel Slope2.15 m/s2 LA Length 2C 6.30 cm AI UHP242.47 msec LA Volume BP 71.96 ml Med [...] Ao Diam 2D 3.89 cm PI ED Wwu847.26 m/sec Asc Ao Index1.87 cm/m2 Electronically Signed By: Clark Cross MD 2024-08-04 21:44:53 CDT Wall Motion Analysis - Resting Marley Terrell MD CV ECHO PROCEDURES Final Result from Last 3 Months Insurance MEDICARE [facility] [place] [id number] [facility]LY [facility] MEDICARE MEDICARE [facility] MEDICARE SUPPLEMENT MEDICARE [facility] BLUE CROSS MEDICARE SUPPLEMENT Advance Directives For more information, please contact: [phone] * Full Code (Latest Code Status on [...] 6:27 PM 03/06/2019 6:29 PM Care Teams Manager Flight Relationship Specialty Start Date End Date Vanessa Cooney MD [address] [facility] [address] [place] [address] PCP - General Internal Medicine 10/07/22 Jensen Guevara MD [address] [facility] [address], [place] [address] Referring Physician Dermatology 05/04/22 Myron Whitaker MD [address] [facility] DIV IM MEDICAL ONCOLOGY, [facility] 7A, 7B, [address] [place] [address] Medical Oncology 04/08/24 Oumar Figueroa MD [address] DIV SURG UROLOGY, [facility] [address] [place] [address] Consulting Physician Urology 04/08/24 Jose Alfredo Rushing MD [address] [facility] DEPT RADIATION ONCOLOGY, [place] [address] Radiation Oncologist Radiation Oncology 04/08/24
--- OUTSIDE RECORDS SUMMARY | 2024-10-21 21:42 | XMS_ITS | Encounter Summary ---
Author Organization [facility] Address [address] [place] [address] Phone Care Team Providers Care Architectural Intern Name Role Phone Michael Tate MD Primary Care Provider + [phone] Max Burns MD Primary Care Provider Jensen Guevara MD Unavailable [phone] Vanessa Cooney MD Primary Care Provider + [phone] Yi Kimball OT Unavailable [phone] Myron Whitaker MD Unavailable [phone] Oumar Figueroa MD Unavailable +- [phone] Jose Alfredo Rushing MD Unavailable [phone] Encounter Details Date Type Department Care Team (Latest Contact Info) Description 06/20/2021 Orders Only [facility] Scanning, Provider [...] you have a drink containing alc ohol? Monthly or less 04/06/2021 Q2: How many drinks containi ng alcohol do you have on a typical day when you are drinking? 1 or 2 04/06/2021 Q3: How often do you have si x or more drinks on one occasion? Never 04/06/2021 Sex and Gender Information Value Date Recorded Sex Assigned at Not on file Legal Sex Male 9:25 PM LICENSING OFFICER Gender Identity Male 03/20/2021 5:05 PM LICENSING OFFICER Sexual Orientation Not on file documented as [...] stairs Contact your local community or [facility] for information on exercise, fall prevention programs, or options for improving home safety. documented as of this encounter Procedures Procedure Name Priority Date/Time Associated Diagnosis Comments CARDIOLOGY DOCUMENT SCAN 06/20/2021 documented in this encounter Results * CARDIOLOGY DOCUMENT SCAN (06/20/2021) Anatomical Region Laterality Modality Other us Provider Scanning CV CARDIAC SERVICES PROCEDURES Final Result documented in this encounter Visit Diagnoses Not on filedocumented in this encounter Additional Health Concerns Infection Onset Date Last Indicated Resolved Time COVID: Suspected 12/11/2021 12/11/2021 12/11/2021 12:55 PM CDT documented as of this encounter Care Teams Architectural Intern Relationship Specialty Start Date End Date Michael Tate MD [address] [place] [address] [address] [place] [address] PCP - General Internal Medicine 06/28/20 07/04/21 Max Burns MD [address] [place] [address] [address] [place] [address] PCP - General Geriatric Medicine 07/05/21 10/06/22 Vanessa Cooney MD [address] [facility] [address] [place] [address] PCP - General Internal Medicine 10/07/22 Jensen Guevara MD [address] [facility] [address] [place] [address] Referring Physician Dermatology 05/04/22 Yi Kimball OT [address] [address] Occupational Therapist Occupational Therapy 09/30/23 Myron Whitaker MD [address] DIV IM MEDICAL ONCOLOGY, [facility] 7A, 7B, [address] [place] [address] Medical Oncology 04/08/24 Oumar Figueroa MD [address] DIV SURG UROLOGY, [facility] [address] [place] [address] Consulting Physician Urology 04/08/24 Jose Alfredo Rushing MD [address] DEPT RADIATION ONCOLOGY, [place] [address] Radiation Oncologist Radiation Oncology 04/08/24 documented as of this encounter
--- OUTSIDE RECORDS SUMMARY | 2024-10-21 21:42 | XMS_ITS | Encounter Summary ---
Author Organization [facility] Address [address] [place] [address] Phone Care Team Providers Care Online Advertising Director Name Role Phone Michael Tate MD Primary Care Provider + [phone] Max Burns MD Primary Care Provider Jensen Guevara MD Unavailable [phone] Vanessa Cooney MD Primary Care Provider + [phone] Yi Kimball OT Unavailable [phone] Myron Whitaker MD Unavailable Oumar Figueroa MD Unavailable +- [phone] Jose Alfredo Rushing MD Unavailable [phone] Encounter Details Date Type Department Care Team (Latest Contact Info) Description 06/05/2021 Orders Only [facility] Scanning, Provider [...] on file Legal Sex Male 9:25 PM QUALITY ASSURANCE TESTER Gender Identity Male 03/20/2021 5:05 PM QUALITY ASSURANCE TESTER Sexual Orientation Not on file documented as [...] on stairs Contact your local community or [facility] for information on exercise, fall prevention programs, or options for improving home safety. documented as of this encounter Procedures Procedure Name Priority Date/Time Associated Diagnosis Comments SCAN - LABS 06/05/2021 documented in this encounter Results * SCAN - LABS (06/05/2021) us Provider Scanning Final Result documented in this encounter Visit Diagnoses Not on filedocumented in this encounter Additional Health Concerns Infection Onset Date Last Indicated Resolved Time COVID: Suspected 12/11/2021 12/11/2021 12/11/2021 12:55 PM CDT documented as of this encounter Care Teams Online Advertising Director Relationship Specialty Start Date End Date Michael Tate MD [address] [place] [address] [address] [place] [address] PCP - General Internal Medicine 06/28/20 07/04/21 Max Burns MD [address] [place] [address] [address] [place] [address] PCP - General Geriatric Medicine 07/05/21 10/06/22 Vanessa Cooney MD [address] [facility] [address] [place] [address] PCP - General Internal Medicine 10/07/22 Jensen Guevara MD [address] [place] [address] [address] [facility] [address] [place] [address] Referring Physician Dermatology 05/04/22 Yi Kibmall OT [address] [address] Occupational Therapist Occupational Therapy 09/30/23 Myron Whitaker MD [address] DIV IM MEDICAL ONCOLOGY, [facility] 7A, 7B, [address] [place] [address] Medical Oncology 04/08/24 Oumar Figueroa MD [address] DIV SURG UROLOGY, [facility] [address] [place] [address] Consulting Physician Urology 04/08/24 Jose Alfredo Rushing MD [address] DEPT RADIATION ONCOLOGY, [place] [address] Radiation Oncologist Radiation Oncology 04/08/24 documented as of this encounter
--- OUTSIDE RECORDS SUMMARY | 2024-10-21 21:42 | XMS_ITS ---
Author Organization [facility] Address [address] [place] [address] Care Team Providers Care Chief Design Engineer Name Role Phone Jensen Guevara MD Unavailable [phone] Vanessa Cooney MD Primary Care Provider + [phone] Myron Whitaker MD Unavailable [phone] Oumar Figueroa MD Unavailable +- [phone] Jose Alfredo Rushing MD Unavailable [phone] Active Problems Problem Noted Date Diagnosed Date NICM (nonischemic cardiomyopathy) 04/26/2024 Assessment & Plan (04/26/2024 12:17 PM PLATE HANGER): NICM/ICM with LVEF of 49%. Acute on [...] placement of cardiac pacemaker 12/17/2021 Overview (12/26/2021): MDT Haydee MRI pacemaker (w3SR01 #[id number]), RV Lead (5076-58#[id number]): Assessment & Plan (04/26/2024 11:58 AM PLATE HANGER): Will resume low dose bb. Assessment & [...] function. The appears largely similar compared to 2019. Follows with Dr. Terrell in cardiology. Assessment & Plan (04/26/2024 12:09 PM PLATE HANGER): Mild and Mild AI on ECHO 03/2024. Assessment & Plan (04/17/2023 8:46 PM PLATE HANGER): Moderate on recent cardiac cath from 02/25/23. [...] 2020. Assessment & Plan (04/26/2024 11:58 AM PLATE HANGER): Eliquis. Assessment & Plan (01/08/2024 4:14 PM CDT): Permanent atrial fibrillation with slow ventricular response and LBBB s/p Medtronic single chamber permanent pacemaker 12/17/2021 Continue Eliquis for stroke risk reduction Assessment & Plan (04/17/2023 8:30 PM PLATE HANGER): Stable with no complaints. Continue Eliquis 5 [...] cardiology Assessment & Plan (04/17/2023 8:35 PM PLATE HANGER): Well controlled. Continue Amlodipine, hydralazine and irbesartan. [...] chemoradiation 2009. Follows with Dr. Ty at [facility]. Spondylosis of lumbosacral r egion [...] and memantine. Follows with Dr. Wright in [facility] Assessment & Plan (12/17/2021 8:17 AM CDT): [...] mg daily and memantine 10 mg BID Current Treatment and Therapy Plans Leuprolide Every 3 Months - Prostate* Plan Start Date:05/19/2024 Plan Provider:Myron Whitaker MD Linked Problems Prostate cancer (HCC) Treatment Medications Current Day (Day 1 , Cycle 3 - Planned for 11/11/2024) Next Day (Day 1, Cycle 4 - Planned for 02/03/2025) leuprolide (3 month) (ELIGARD)leuprolide (ELIGARD) leuprolide (3 month) (ELIGARD) subcutaneous injection 22.5 mg leuprolide (3 month) (ELIGARD) subcutaneous injection 22.5 mg Past Treatment and Therapy Plans No past plan information found. Lifetime Dose Tracking * Chemical Lifetime Dose Automatic Entry Manual Entr y Fluoro Time 4.033 minutes 4.033 minutes 0 minutes Air kerma at the reference point (Ka,r) 2,075.84 mGy 8 4.34 mGy 1,991.5 mGy DLP 3,500 mGycm 3,500 mGycm 0 mGycm Resolved Problems Problem Noted Date Diagnosed Date Resolved Date Snoring 07/24/2023 04/20/2024 Coronary artery disease invo lving [place] coronary artery of [place] heart without angina pectoris 02/26/2023 04/20/2024 Overview (02/26/2023): See cath report 02/26/23 Assessment & Plan (04/17/2023 8:45 PM PLATE HANGER): Apical LV akinesis on TTE from 02/03/23. [...] (12/22/2018): Added automatically from request for surgery [id number]
--- OUTSIDE RECORDS SUMMARY | 2024-10-21 21:42 | XMS_ITS | Encounter Summary ---
Author Organization [facility] Address [address] [place] [address] Phone Care Team Providers Care Last Code Striper Name Role Phone Erik Reveles MD Primary Care Provider [phone] Michael Tate MD Primary Care Provider [phone] Max Burns MD Primary Care Provider Jensen Guevara MD Unavailable [phone] Vanessa Cooney MD Primary Care Provider +- [phone] Yi Kimball OT Unavailable [phone] Myron Whitaker MD Unavailable [phone] Oumar Figueroa MD Unavailable [phone] Jose Alfredo Rushing MD Unavailable Encounter Details Date Type Department Care Team (Latest Contact Info) Description 04/14/2018 Orders Only [facility] Scanning, Provider Social History Tobacco Use Types Packs/Day Years Used Date Smoking Tobacco: Former Cigarettes 0.5 3 1 968 - 1971 Smokeless Tobacco: Never Alcohol Use Standard Drinks/Week Comments Yes 0 (1 standard drink = 0.6 oz pur e alcohol) Sex and Gender Information Value Date Recorded Sex Assigned at Not on file Legal Sex Male 9:25 PM ABLE BODIED TANKERMAN Gender Identity Male 03/20/2021 5:05 PM ABLE BODIED TANKERMAN Sexual Orientation Not on file documented as of this encounter Plan of Treatment Not on file documented as of this encounter Procedures Procedure Name Priority Date/Time Associated Diagnosis Comments CARDIOLOGY DOCUMENT SCAN 04/14/2018 documented in this encounter Results * CARDIOLOGY DOCUMENT SCAN (04/14/2018) Anatomical Region Laterality Modality Other Provider Scanning CV CARDIAC SERVICES PROCEDURES Final Result documented in this encounter Visit Diagnoses Not on filedocumented in this encounter Additional Health Concerns Infection Onset Date Last Indicated Resolved Time COVID: Suspected 12/11/2021 12/11/2021 12/11/2021 12:55 PM CDT documented as of this encounter Care Teams Last Code Striper Relationship Specialty Start Date End Date Erik Reveles MD PCP - General 09/26/16 06/27/20 Michael Tate MD [address] [facility] [address] [place] [address] PCP - General Internal Medicine 06/28/20 07/04/21 Max Burns MD [address] [facility] [address] [place] [address] PCP - General Geriatric Medicine 07/05/21 10/06/22 Vanessa Cooney MD [address] [facility] [address] [place] [address] PCP - General Internal Medicine 10/07/22 Jensen Guevara MD [address] [facility] [address] [place] [address] Referring Physician Dermatology 05/04/22 Yi Kimball OT [address] [place] [address] Occupational Therapist Occupational Therapy 09/30/23 Myron Whitaker MD [address] [facility] DIV IM MEDICAL ONCOLOGY, [address]A, [address]B, [address] [place] [address] Medical Oncology 04/08/24 Oumar Figueroa MD [address] DIV SURG UROLOGY, [facility] [address] [place] [address] Consulting Physician Urology 04/08/24 Jose Alfredo Rushing MD [address] [facility] DEPT RADIATION ONCOLOGY, [place] [address] Radiation Oncologist Radiation Oncology 04/08/24 documented as of this encounter
--- OUTSIDE RECORDS SUMMARY | 2024-10-21 21:42 | XMS_ITS | Encounter Summary ---
Author Organization [facility] Address [address] [place] [address] Care Team Providers Care Facility Designer Name Role Phone Michael Tate MD Primary Care Provider + [phone] Max Burns MD Primary Care Provider Jensen Guevara MD Unavailable [phone] Vanessa Cooney MD Primary Care Provider + [phone] Yi Kimball OT Unavailable [phone] Myron Whitaker MD Unavailable [phone] Oumar Figueroa MD Unavailable +- [phone] Jose Alfredo Rushing MD Unavailable [phone] Encounter Details Date Type Department Care Team (Late st Contact Info) Description 07/26/2020 Telephone [facility] Imaging [id number] [place] [id number] Anais Robin, RT Social History Tobacco Use Types Packs/Day Years Used Date Smoking Tobacco: Former Cigarettes 0.3 3 1 977 - 1980 Pipe Smokeless Tobacco: Never Alcohol Use Standard Drinks/Week Comments Yes 0 (1 standard drink = 0.6 oz pure alcohol) SOCIALLY MAY DRINK 1/3 GLASS OF WINE AUDIT-C Answer Date Recorded Frequency of Alcohol Consumption Not on file 07/12/2020 Q2: How many drinks containi ng alcohol do you have on a typical day when you are drinking? 3 or 4 07/12/2020 Frequency of Binge Drinking Not on file 06/23 Sex and Gender Information Value Date Recorded Sex Assigned at Not on file Legal Sex Male 9:25 PM ROUSTABOUT PUSHER Gender Identity Male 03/20/2021 5:05 PM ROUSTABOUT PUSHER Sexual Orientation Not on file documented as of this encounter Plan of Treatment Not on file documented as of this encounter Visit Diagnoses Not on filedocumented in this encounter Additional Health Concerns Infection Onset Date Last Indicated Resolved Time COVID: Suspected 12/11/2021 12/11/2021 12/11/2021 12:55 PM CDT documented as of this encounter Care Teams Facility Designer Relationship Specialty Start Date End Date Michael Tate MD [address] [place] [address] [address] [place] [address] PCP - General Internal Medicine 06/28/20 07/04/21 Max Burns MD [address] [place] [address] [address] [place] [address] PCP - General Geriatric Medicine 07/05/21 10/06/22 Vanessa Cooney MD [address] [address] PCP - General Internal Medicine 10/07/22 Jensen Guevara MD [address] [place] [address] [address] [place] [address] Referring Physician Dermatology 05/04/22 Yi Kimball OT [address] [address] Occupational Therapist Occupational Therapy 09/30/23 Myron Whitaker MD [address] [facility] DIV IM MEDICAL ONCOLOGY, [address], [address], [address] [place] [address] Medical Oncology 04/08/24 Oumar Figueroa MD [address] DIV SURG UROLOGY, [facility] [address] [place] [address] Consulting Physician Urology 04/08/24 Jose Alfredo Rushing MD [address] [facility] DEPT RADIATION ONCOLOGY, [place] [address] Radiation Oncologist Radiation Oncology 04/08/24 documented as of this encounter
--- OUTSIDE RECORDS SUMMARY | 2024-10-21 21:42 | XMS_ITS | Encounter Summary ---
Author Organization [facility] Address [address] [place] [address] Care Team Providers Care Electric Drill Operator Name Role Phone Michael Tate MD Primary Care Provider + [phone] Max Burns MD Primary Care Provider Jensen Guevara MD Unavailable [phone] Vanessa Cooney MD Primary Care Provider + [phone] Yi Kimball OT Unavailable [phone] Myron Whitaker MD Unavailable Oumar Figueroa MD Unavailable +- [phone] Jose Alfredo Rushing MD Unavailable [phone] Encounter Details Date Type Department Care Team (Late st Contact Info) Description 09/07/2020 Telephone [facility] Imaging [address] [place] [id number] Anais Robin, RT Social History Tobacco Use Types Packs/Day Years Used Date Smoking Tobacco: Former Cigarettes 0.3 3 1 977 - 1980 Pipe Smokeless Tobacco: Never Alcohol Use Standard Drinks/Week Comments Yes 0 (1 standard drink = 0.6 oz pure alcohol) SOCIALLY MAY DRINK 1/3 GLASS OF WINE AUDIT-C Answer Date Recorded Q1: How often do you have a drink containing alcohol? 4 or more times a week 08/25/2020 Q2: How many drinks containi ng alcohol do you have on a typical day when you are drinking? 1 or 2 Q3: How often do you have si x or more drinks on one occasion? Never 08/25/2020 Sex and Gender Information Value Date Recorded Sex Assigned at Not on file Legal Sex Male 9:25 PM MANAGER PRINTING Gender Identity Male 03/20/2021 5:05 PM MANAGER PRINTING Sexual Orientation Not on file documented as [...] on stairs Contact your local community or [facility] for information on exercise, fall prevention programs, or options for improving home safety. documented as of this encounter Visit Diagnoses Not on filedocumented in this encounter Additional Health Concerns Infection Onset Date Last Indicated Resolved Time COVID: Suspected 12/11/2021 12/11/2021 12/11/2021 12:55 PM CDT documented as of this encounter Care Teams Electric Drill Operator Relationship Specialty Start Date End Date Michael Tate MD [address] [place] [address] [address] [facility] [place] [address] PCP - General Internal Medicine 4/7/21 4/13/22 Max Burns MD [address] [facility] [address] [facility] [address] [place] [address] PCP - General Geriatric Medicine 07/05/21 10/06/22 Vanessa Cooney MD [address] [place] [address] PCP - General Internal Medicine 10/07/22 Jensen Guevara MD [address] [facility] [address] [place] [address] Referring Physician Dermatology 05/04/22 Yi Kimball OT [address] [place] [address] Occupational Therapist Occupational Therapy 09/30/23 Myron Whitaker MD [address] DIV IM MEDICAL ONCOLOGY, [facility] 7A, 7B, [address] [place] [address] Medical Oncology 04/08/24 Oumar Figueroa MD [address] DIV SURG UROLOGY, [facility] [address] [place] [address] Consulting Physician Urology 04/08/24 Jose Alfredo Rushing MD [address] DEPT RADIATION ONCOLOGY, [place] [address] Radiation Oncologist Radiation Oncology 04/08/24 documented as of this encounter
--- OUTSIDE RECORDS SUMMARY | 2024-10-21 21:42 | XMS_ITS | Continuity of Care Document ---
Author Organization [facility] Address [address] [place] [address] [address] [place] [address] Phone Care Team Providers Care Beverage Inspection Machine Tender Name Role Phone [facility], [employer] Unavailable Unavail able Bhargavi Jerome Unavailable Unavailable Advance Directives Directive Yes / No Effective Date File Name No Information Encounters Encounter Description Practice Location Reason(s) For Visit Diagnoses Date Provider Providers Copied on Encounter [facility], [id number] [address] [address], [place], [place], [id number], [place] tel:[phone] [facility] No Information [address] [employer] [address] [place], [facility] [address], [place], [place], [id number] , [place]. tel:[phone] Referring Provider: Myron Alan, [address], [place], [address]. tel:[phone] g Provider: Bhargavi Jerome, [address] [place] [address], [address]. tel:[phone] Family History Family Member Type Diagnosis Age At Onset No Information Payers Payer name Insurance type Covered republican ID Authoriza tion(s) No Information Social History Type Description Quantity Date Captured Comments Sex Male Smoking Status No Information Chief Complaint And Reason For Visit No Information Reason For Referral Reason For Referral No Information History Of Present Illness Encounter Date Complaint History Of Prese nt Illness No Information Functional Status Date Functional Assessmen t No Information Instructions Date Instruction Additional Infor mation No Information Assessments Type Assessment Date No Information Patient Care Teams Name Effective Dates (start - stop) Status Members No Information
[2024-10-21 21:52] LABS: Anisocytosis 1+; Macrocytosis 1+ (NORMAL); Schistocytes None Seen
[2024-10-21 22:00] VITALS: BP 133/71; PULSE 80; RESP 22; O2SAT 97
[2024-10-21 22:36] LABS: Fractional Inspired Oxygen 21 %; HCO3 VBG 27.8 mEq/l (24.0-30.0); PCO2 VBG 45.8 mmHg (42.0-48.0); PO2 VBG 33.3 mmHg (35.0-45.0)
[2024-10-21 22:37] LABS: pH VBG 7.401 (7.300-7.400)
[2024-10-21 22:46] LABS: Add Urine Microscopic? YES; Appearance Urine Clear (Clear); Glucose Urine UA 3+ mg/dL (Negative); Leukocyte Esterase Ur Negative LEU/UL (Negative); Nitrate Urine Negative (Negative); Non Pathogenic Casts 0-2; Specific Grav Ur 1.021 (1.001-1.035)
[2024-10-21 22:48] LABS: INR 1.1; Partial Thromboplastin Time 30.5 Seconds (22.3-36.8); Prothrombin Time 14.3 Seconds (11.1-14.7)
[2024-10-21 22:55] LABS: Alanine Aminotransferase 20 U/L (6-50); Albumin Level 4.7 g/dL (3.5-5.1); Alkaline Phosphatase 96 U/L (38-126); Anion Gap 6 mmol/L (4-12); Aspartate Amino Transferase 39 U/L (17-59); Bilirubin,Total 0.7 mg/dL (0.2-1.3); Blood Urea Nitrogen 37 mg/dL (9-20); Calcium 10.2 mg/dL (8.4-10.2); Carbon Dioxide 29 mmol/L (22-30); Chloride 102 mmol/L (98-107); Estimated CRCL calculation 30 ml/min; Estimated Glomerular Filt Rate 35; Glucose 110 mg/dL (65-110); Lipase 237 U/L (23-300); Magnesium 2.6 mg/dL (1.6-2.3); Potassium 4.2 mmol/L (3.4-5.0); Sodium 137 mmol/L (137-145); Total Protein 8.1 g/dL (6.3-8.2)
[2024-10-21 23:05] LABS: Cannabinoid Screen Urine Negative (Negative)
[2024-10-21 23:10] LABS: NT Pro B Type Natriuretic Pept 1880 pg/mL (19.9-100); Troponin I 0.055 ng/mL (0.000-0.034)
[2024-10-21 23:29] LABS: Thyroid Stimulating Hormone Reflex 2.550 uIU/mL (0.465-4.68)
[2024-10-21 23:32] LABS: Influenza A QL RT-PCR Negative (Negative); Influenza B QL RT-PCR Negative (Negative); RSV RNA, RT-PCR Negative (Negative); SARS-CoV-2 RNA PCR Negative (Negative)
[2024-10-22] VITALS (8 sets, daily range): BP systolic 120–159; BP diastolic 69–80; PULSE 70–87; RESP 18–21; TEMP 36.4–38.1; O2SAT 95–99; BMI 29.5
--- NOTE | 2024-10-22 01:31 | ECG_ITS ---
Test Date: 2024-10-22 01:35:21 Measurements Intervals Donnelly Rate: 80 P: 95 WA: 251 QRS: -85 QRSD: 188 T: 95 QT: 461 QTc: 532 Interpretive Statements ELECTRONIC VENTRICULAR PACEMAKER BASELINE ARTIFACT- I NO FURTHER INTERPRETATION IS POSSIBLE ATYPICAL ECG Compared to ECG 10/21/2024 21:37:52 VENTRICULAR PREMATURE COMPLEXES NO LONGER PRESENT Electronically Signed On 10-22-2024 06:20:32 CDT by Francisco J Dodge D.O.
[2024-10-22] MEDS: CEFEPIME 2 GM in SODIUM CHLORIDE 0.9% IV 50 ML 100 ML IVPB ×2 (02:00→14:04)
--- NOTE | 2024-10-22 02:02 | ED_ITS ---
HPI - General Adult General Chief complaint: Weakness Stated complaint: Unsteady on feet-sudden onset Time Seen by Provider: 10/21/24 21:29 History of Present Illness HPI narrative: This is an 84 year male w/ a hx of dementia, cad, pacemaker, chf presenting for weakness. Patient was out running chores with 1 of his family members earlier today. At 3:00 p.m. he came home and seemed very lethargic and weak. He was having difficulty getting out of the car after he got admitted he was not getting up from the sofa. This is not normal for him. He was then brought to the hospital for evaluation. Patient himself does not know eyes in the ED and is denying any complaints such as headaches fevers chest pain difficulty breathing abdominal pain or urinary symptoms. Related Data Home Medications ?Medication ?Instructions ?Recorded ?Confirmed ?Last Taken ?Type apixaban 5 mg tablet (Eliquis) 5 mg PO BID 12/20/20 01/12/24 09/01/22 08:30 History donepezil 10 mg tablet 10 mg PO DAILY 12/20/20 01/12/24 09/01/22 08:30 History memantine 10 mg tablet 10 mg PO BID 12/20/20 01/12/24 09/01/22 08:30 History acetaminophen 500 mg capsule 1,000 mg PO BID 09/01/22 01/12/24 09/01/22 08:30 History cholecalciferol (vitamin D3) 50 50 mcg PO HS 09/01/22 01/12/24 08/31/22 22:00 History mcg (2,000 unit) capsule duloxetine 20 mg capsule,delayed 20 mg PO BID 09/01/22 01/12/24 09/01/22 08:30 History release hydralazine 25 mg tablet 25 mg PO TID 09/01/22 01/12/24 08/31/22 08:30 History triamcinolone acetonide 0.1 % 1 applic topical BID PRN Itching 09/01/22 01/12/24 Unknown History topical cream clopidogrel 75 mg tablet (Plavix) 75 mg PO DAILY 12/12/23 01/12/24 Unknown History gentamicin 0.1 % topical ointment 1 applic topical DAILY 12/12/23 01/12/24 Unknown History rosuvastatin 40 mg tablet 40 mg PO DAILY 12/12/23 01/12/24 Unknown History Allergies Allergy/AdvReac Type Severity Reaction Status Date / Time OPIATES AdvReac Unknown AVOIDS- Uncoded 01/12/24 15:57 MILD Confusion PMFSH Past Medical History Medical History Hodgkin lymphoma (2010) Non-Hodgkin lymphoma (2005) Memory loss Chronic anticoagulation Paroxysmal atrial fibrillation Hypertension Arthritis Surgical History Surgical History History of permanent cardiac pacemaker placement History of tonsillectomy Family History Family History Mother No problems noted. Father Acute myocardial infarction Hypertension High cholesterol Cancer Social History Social History Social History: Surrogate medical decision maker: Rosalina Pathak, . Code status: Full code. Smoking packs per day: 0.5 Smoking cigarettes per day: 10.0 Years smoked: 6 Smoking pack-years: 3.00 Smoking status: Former smoker Alcohol intake: never Substance use: never Substance use type: does not use Lack of Transportation: No Lack of Food: Never True Current Housing: I Have Housing Concerned About Future Housing: No Difficulty Paying Gas/Electric Bills: No Difficulty Paying for Meds: No Currently Unemployed: No Education: Master's Degree or Higher Difficulty w/ Childcare or Family Care: No Additional living arrangements comments: Patient lives with his in [place]. 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 Spiritual care concerns: No Exam 2 Narrative: APPEARANCE: No apparent distress. A&O x2 Head: atraumatic. EYES: EOMI, NOSE: Atraumatic NECK: Trachea midline supple, no meningismus RESPIRATORY: No increased rate of breathing clear to auscultation CARDIOVASCULAR: RRR, no peripheral edema ABDOMINAL: Non-distended soft nontender MUSCULOSKELETAl: No obvious deformities NEURO: Alert. Cranial nerves 2-12 grossly intact. Sensation light touch, motor function cerebellar function intact for 4 extremities. Gait exam was normal. SKIN:: Warm, dry. Normal color PSYCHIATRIC: Normal affect Course Vital Signs Vital signs: Vital Signs Temperature 98.5 F 10/21/24 21:10 Pulse Rate 81 10/21/24 21:10 Respiratory Rate 17 10/21/24 21:10 Blood Pressure 158/75 H 10/21/24 21:10 Pulse Oximetry 98 10/21/24 21:10 Oxygen Delivery Room Air 10/21/24 21:10 Temperature 98.7 F 10/22/24 02:21 Pulse Rate 80 10/22/24 00:00 Respiratory Rate 21 H 10/22/24 00:00 Blood Pressure 159/78 H 10/22/24 00:00 Pulse Oximetry 99 10/22/24 00:00 Oxygen Delivery Room Air 10/21/24 21:10 Medical Decision Making MDM Narrative Medical decision making narrative: -Course: A 84-year-old male presenting with weakness. Vital signs are stable. afebrile. Physical exam is unremarkable neurologic exam is unremarkable. Broad workup obtained. CT brain unremarkable. CT chest abdomen pelvis showed cardiomegaly without evidence of florid CHF. No other significant findings in chest abdomen or pelvis. White count 14. Lactic normal. Patient has acute kidney injury BUN of 37 and creatinine of 1.84 from a baseline of 1.2. Troponins essentially flat. EKG shows a paced rhythm. Urine not indicative infection. Viral swabs negative. Blood cultures are still pending. Patient was re-evaluated. Patient now feels warm to the touch. Rectal temperature 100.5?. Patient started on broad-spectrum antibiotics. Given 1 L normal saline due to history of congestive heart failure. Will give cautious fluid resuscitation at 150 cc an hour. Patient given Tylenol. Patient will be admitted the hospital for further management sepsis of unknown source. Patient is full code. -DDX includes but is not limited to: Sepsis UTI pneumonia intra-abdominal pathology bacteremia dehydration -Co-morbidities complicating care: CAD, CHF, pacemaker, dementia Vital Signs Vital Signs: Vital Signs Temperature 98.5 F 10/21/24 21:10 Pulse Rate 81 10/21/24 21:10 Respiratory Rate 17 10/21/24 21:10 Blood Pressure 158/75 H 10/21/24 21:10 Pulse Oximetry 98 10/21/24 21:10 Oxygen Delivery Room Air 10/21/24 21:10 Temperature 98.7 F 10/22/24 02:21 Pulse Rate 80 10/22/24 00:00 Respiratory Rate 21 H 10/22/24 00:00 Blood Pressure 159/78 H 10/22/24 00:00 Pulse Oximetry 99 10/22/24 00:00 Oxygen Delivery Room Air 10/21/24 21:10 Lab Data 10/21/24 21:37 10/21/24 22:29 Labs: Lab Results 10/21/24 10/21/24 10/21/24 Range/Units 21:36 21:37 22:29 WBC 14.0 H (4.5-10.0) K/mm3 RBC 4.49 L (4.6-6.20) M/mm3 Hgb 14.7 (14.0-18.0) g/dL Hct 47.2 (42.0-52.0) % MCV 105.1 H (80-100) fl MCH 32.7 (26-34) pg MCHC 31.1 L (32-36) g/dl RDW 14.8 H (11.5-14.5) % Plt Count 212 (150-375) k/mm3 MPV 10.7 H (7.4-10.4) fl Immature Gran % (Auto) 0.4 (0-0.5) % Neut % (Auto) 68.8 (45.5-73.1) % Lymph % (Auto) 17.7 L (18.3-44.2) % Beaufort % (Auto) 11.2 H (2.6-8.5) % Eos % (Auto) 1.3 (0-4.4) % Baso % (Auto) 0.6 (0.2-1.2) % Lymph # (Auto) 2.48 (0.9-3.2) K/mm3 Beaufort # (Auto) 1.6 H (0.1-0.6) K/mm3 Eos # (Auto) 0.2 (0-0.3) K/mm3 Baso # (Auto) 0.1 (0.0-0.1) K/mm3 Abs Immat Gran (auto) 0.05 H (0.00-0.031) K/mm3 Absolute Neuts (auto) 9.7 H (1.3-6.7) K/mm3 Absolute Nucleated RBC 0.000 (0.0-0.012) K/mm3 Band Neutrophils % Not Reportable Nucleated RBC % 0.0 (0.0-0.2) % Platelet Estimate Adequate (Adequate) Anisocytosis 1+ Macrocytosis 1+ (NORMAL) Schistocytes None seen PT 14.3 (11.1-14.7) Seconds INR 1.1 APTT 30.5 (22.3-36.8) Seconds Sodium Cancelled 137 Potassium Cancelled 4.2 Chloride Cancelled 102 Carbon Dioxide Cancelled 29 Anion Gap Cancelled 6 BUN Cancelled 37 H D Creatinine Cancelled 1.84 H Estim Creat Clear Calc Cancelled 30 Estimated GFR Cancelled 35 L Glucose Cancelled 110 Lactic Acid 1.3 (0.7-2.0) mmol/L Calcium Cancelled 10.2 Phosphorus 3.6 (2.5-4.5) mg/dL Magnesium 2.6 H (1.6-2.3) mg/dL Total Bilirubin Cancelled 0.7 AST Cancelled 39 ALT Cancelled 20 Alkaline Phosphatase Cancelled 96 Troponin I 0.055 H* (0.000-0.034) ng/mL NT-Pro-B Natriuret Pep 1880 H (19.9-100) pg/mL Total Protein Cancelled 8.1 Albumin Cancelled 4.7 Lipase 237 (23-300) U/L TSH (Reflex) 2.550 (0.465-4.68) uIU/mL Urine Color Yellow (Yellow) Urine Appearance Clear (Clear) Urine pH 7.5 (5.0-9.0) Ur Specific Patterson 1.021 (1.001-1.035) Urine Protein 1+ H (Negative) mg/dL Urine Glucose (UA) 3+ H (Negative) mg/dL Urine Ketones Negative (Negative) mg/dL Ur Blood (Man) Negative (Negative) Urine Nitrate Negative (Negative) Urine Bilirubin Negative (Negative) Urine Urobilinogen 0.2 (<2.0) mg/dL Leukocyte Esterase Rfl Negative (Negative) KELLY/UL Urine RBC 0-2 (0-2) /hpf Urine WBC 0-5 (0-3) /hpf Ur Squamous Epith Cells None seen (Few) /hpf Urine Bacteria None seen /hpf Urine Casts 0-2 Urine Opiates Screen Negative (Negative) Urine Methadone Screen Negative (Negative) Ur Barbiturates Screen Negative (Negative) Ur Phencyclidine Scrn Negative (Negative) Ur Amphetamine Screen Negative (Negative) U Benzodiazepines Scrn Negative (Negative) Urine Cocaine Screen Negative (Negative) U Cannabinoids Screen Negative (Negative) Ethyl Alcohol < 10 (<10) mg/dL Influenza A (RT-PCR) Negative (Negative) Influenza B (RT-PCR) Negative (Negative) RSV (RT-PCR) Negative (Negative) SARS-CoV-2 RNA (RT-PCR) Negative (Negative) 10/22/24 Range/Units 01:38 WBC (4.5-10.0) K/mm3 RBC (4.6-6.20) M/mm3 Hgb (14.0-18.0) g/dL Hct (42.0-52.0) % MCV (80-100) fl MCH (26-34) pg MCHC (32-36) g/dl RDW (11.5-14.5) % Plt Count (150-375) k/mm3 MPV (7.4-10.4) fl Immature Gran % (Auto) (0-0.5) % Neut % (Auto) (45.5-73.1) % Lymph % (Auto) (18.3-44.2) % Beaufort % (Auto) (2.6-8.5) % Eos % (Auto) (0-4.4) % Baso % (Auto) (0.2-1.2) % Lymph # (Auto) (0.9-3.2) K/mm3 Beaufort # (Auto) (0.1-0.6) K/mm3 Eos # (Auto) (0-0.3) K/mm3 Baso # (Auto) (0.0-0.1) K/mm3 Abs Immat Gran (auto) (0.00-0.031) K/mm3 Absolute Neuts (auto) (1.3-6.7) K/mm3 Absolute Nucleated RBC (0.0-0.012) K/mm3 Band Neutrophils % Nucleated RBC % (0.0-0.2) % Platelet Estimate (Adequate) Anisocytosis Macrocytosis (NORMAL) Schistocytes PT (11.1-14.7) Seconds INR APTT (22.3-36.8) Seconds Sodium Potassium Chloride Carbon Dioxide Anion Gap BUN Creatinine Estim Creat Clear Calc Estimated GFR Glucose Lactic Acid (0.7-2.0) mmol/L Calcium Phosphorus (2.5-4.5) mg/dL Magnesium (1.6-2.3) mg/dL Total Bilirubin AST ALT Alkaline Phosphatase Troponin I 0.059 H* (0.000-0.034) ng/mL NT-Pro-B Natriuret Pep (19.9-100) pg/mL Total Protein Albumin Lipase (23-300) U/L TSH (Reflex) (0.465-4.68) uIU/mL Urine Color (Yellow) Urine Appearance (Clear) Urine pH (5.0-9.0) Ur Specific Patterson (1.001-1.035) Urine Protein (Negative) mg/dL Urine Glucose (UA) (Negative) mg/dL Urine Ketones (Negative) mg/dL Ur Blood (Man) (Negative) Urine Nitrate (Negative) Urine Bilirubin (Negative) Urine Urobilinogen (<2.0) mg/dL Leukocyte Esterase Rfl (Negative) KELLY/UL Urine RBC (0-2) /hpf Urine WBC (0-3) /hpf Ur Squamous Epith Cells (Few) /hpf Urine Bacteria /hpf Urine Casts Urine Opiates Screen (Negative) Urine Methadone Screen (Negative) Ur Barbiturates Screen (Negative) Ur Phencyclidine Scrn (Negative) Ur Amphetamine Screen (Negative) U Benzodiazepines Scrn (Negative) Urine Cocaine Screen (Negative) U Cannabinoids Screen (Negative) Ethyl Alcohol (<10) mg/dL Influenza A (RT-PCR) (Negative) Influenza B (RT-PCR) (Negative) RSV (RT-PCR) (Negative) SARS-CoV-2 RNA (RT-PCR) (Negative) ABG Data ABG results: 10/21/24 22:29 VBG pH 7.401 H VBG pCO2 45.8 VBG pO2 33.3 L VBG HCO3 27.8 O2 Delivery Device Room air O2 Liters/Min Not Reportable FiO2 21 Critical Care Time Critical Care Time Critical Care Time: Yes Total Critical Care Time: 35 Discharge Plan Discharge Clinical Impression: Weakness, Acute kidney injury, Leukocytosis, Fever Patient Disposition: Still a Patient Condition: Stable Patient Language: Beninese Prescriptions: No Action gentamicin 0.1 % ointment 1 applic TOPICAL DAILY rosuvastatin 40 mg tablet 40 mg PO DAILY clopidogrel [Plavix] 75 mg Tablet 75 mg PO DAILY Eliquis 5 mg tablet 5 mg PO BID memantine 10 mg tablet 10 mg PO BID donepezil 10 mg tablet 10 mg PO DAILY hydralazine 25 mg tablet 25 mg PO TID triamcinolone acetonide 0.1 % Cream 1 applic TOPICAL BID PRN (Reason: Itching) duloxetine 20 mg capsule,delayed release(DR/EC) 20 mg PO BID acetaminophen 500 mg Capsule 1,000 mg PO BID cholecalciferol (vitamin D3) 50 mcg (2,000 unit) Capsule 50 mcg PO HS Follow-up/Referrals: PHYSICIAN,FIRE SPRINKLER DESIGNER [Primary Care Provider] -
[2024-10-22 02:11] LABS: Troponin I 0.059 ng/mL (0.000-0.034)
[2024-10-22] MEDS: SODIUM CHLORIDE 0.9% IV 1,000 ML 999 ML IV CONT (02:35)
[2024-10-22] MEDS: VANCOMYCIN 1,500 MG/NS 500 ML 1,500 MG/500 ML BAG 250 MG IVPB (02:36)
[2024-10-22 03:51] LABS: MRSA (PCR) NOT DETECTED (NOT DETECTE)
--- NOTE | 2024-10-22 04:38 | ADMGEN ---
This patient, Zion Pathak, was admitted to [facility] Surg Room 311-01. Patient/family oriented to hospital policies and general routines including ID bracelet, bed and alarms, visiting hours, pain management, procedures, bathroom and other care routines, personal items, smoking policy, room service/diet, and visiting hours. Information on how to activate the Rapid Response Team has been discussed. Patient/Family are encouraged to report perceived risks to care and to ask questions if they do not understand what they are told or what they should do.
--- NOTE | 2024-10-22 05:58 | PM.IMHP ---
H&P: HPI History of Present Illness Date/Time: 10/22/24 05:58 Chief Complaint: Weakness Narrative: 84-year-old male with past medical history dementia baseline A&O x1 history taken from his , paroxysmal atrial fibrillation on Eliquis, CHF, prostate cancer on bicalutamide, non-Hodgkin lymphoma 2005, Hodgkin lymphoma 2009, hypertension, CKD, history of permanent pacemaker presents to [facility] ER on 10/22/2024 with weakness. Patient is care for by his . He has been in his usual state of health until the day of admission when he was too weak to ambulate while running errands. He could not get out of the car. EMS was summoned. Comprehensive review systems negative. reports he is in his usual mental status. Denies fever, fainting, change in vision, dizziness, chest pain, shortness of breath, cough, abdominal pain, nausea vomiting or diarrhea, any bug bites, rashes, open wounds, severe back pain, headache, neck stiffness. No sick contacts. No travel recently. Denies smoking, illicit drug use, alcohol use. Vitals in ER stable aside from blood pressure 150/75. Later in the ER course is temperature checked rectally 100.5? F. white blood cell count 14. Hemoglobin 14.7, platelet 212, pH 7.4, pCO2 45.8 on VBG. Sodium 137, BUN 37, serum creatinine 1.84, lactic acid 1.3, glucose 110, calcium 10.2, phosphorus 3.6, troponin 0.05. TSH 2.5, urinalysis 1+ protein and 3+ glucose otherwise unremarkable. Drug urine screen and ethyl alcohol within normal limits. Quad viral screen negative. Preliminary readings of chest x-ray, head CT, chest abdomen pelvis CT all reported no acute findings. Administered Tylenol 1000 mg p.o. x1, 1 L normal saline bolus, vancomycin and cefepime. Placed on lactated Ringer's at 150 cc/hour. Review of Systems Review of Systems: All systems reviewed & are unremarkable except as noted in HPI and below (HPI/objective) [facility] Past Medical History Medical History Hodgkin lymphoma (2009) Non-Hodgkin lymphoma (2005) Memory loss Chronic anticoagulation Paroxysmal atrial fibrillation Hypertension Arthritis Surgical History Surgical History History of permanent cardiac pacemaker placement History of tonsillectomy Family History Family History Mother No problems noted. Father Acute myocardial infarction Hypertension High cholesterol Cancer Social History Social History Social History: Surrogate medical decision maker: Rosalina Pathak, . Code status: Full code. Smoking packs per day: 0.5 Smoking cigarettes per day: 10.0 Years smoked: 6 Smoking pack-years: 3.00 Smoking status: Never smoker Second hand tobacco smoke exposure: No Alcohol intake: never Substance use: never Substance use type: does not use Lack of Transportation: No Lack of Food: Never True Current Housing: I Have Housing Concerned About Future Housing: No Difficulty Paying Gas/Electric Bills: No Difficulty Paying for Meds: No Currently Unemployed: No Education: Master's Degree or Higher Difficulty w/ Childcare or Family Care: No Additional living arrangements comments: Patient lives with his in [place]. 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 Spiritual care concerns: No Meds Home Medications and Allergies Home Medications ?Medication ?Instructions ?Recorded ?Confirmed ?Type apixaban 5 mg tablet (Eliquis) 5 mg PO BID 12/20/20 01/12/24 History donepezil 10 mg tablet 10 mg PO DAILY 12/20/20 01/12/24 History memantine 10 mg tablet 10 mg PO BID 12/20/20 01/12/24 History acetaminophen 500 mg capsule 1,000 mg PO BID 09/01/22 01/12/24 History cholecalciferol (vitamin D3) 50 50 mcg PO HS 09/01/22 01/12/24 History mcg (2,000 unit) capsule duloxetine 20 mg capsule,delayed 20 mg PO BID 09/01/22 01/12/24 History release hydralazine 25 mg tablet 25 mg PO TID 09/01/22 01/12/24 History triamcinolone acetonide 0.1 % 1 applic topical BID PRN Itching 09/01/22 01/12/24 History topical cream clopidogrel 75 mg tablet (Plavix) 75 mg PO DAILY 12/12/23 01/12/24 History gentamicin 0.1 % topical ointment 1 applic topical DAILY 12/12/23 01/12/24 History rosuvastatin 40 mg tablet 40 mg PO DAILY 12/12/23 01/12/24 History Allergies Allergy/AdvReac Type Severity Reaction Status Date / Time OPIATES AdvReac Unknown AVOIDS- Uncoded 01/12/24 15:57 MILD Confusion Vital Signs Vital Signs - 24 hr 10/21/24 21:10 10/21/24 21:15 10/21/24 21:39 Temperature 98.5 F Pulse Rate 81 86 81 Respiratory Rate 17 19 Blood Pressure 158/75 H 158/75 H Pulse Oximetry 98 100 Oxygen Delivery Room Air 10/21/24 22:00 10/22/24 00:00 10/22/24 02:21 Temperature 98.7 F Pulse Rate 80 80 Respiratory Rate 22 H 21 H Blood Pressure 133/71 159/78 H Pulse Oximetry 97 99 Oxygen Delivery 10/22/24 02:27 Temperature 100.5 F H Pulse Rate Respiratory Rate Blood Pressure Pulse Oximetry Oxygen Delivery Exam Const: General: comfortable and no acute distress Other: A&O x1 HENMT: Mouth: Yes moist mucous membranes Eyes: Pupils: Equal, round and reactive pupils present Neck: Neck: supple Resp: Effort & Inspection: normal respiratory effort Auscultation: clear to auscultation bilaterally Cardio: Rate: regular rate Rhythm: regular rhythm Heart sounds: no gallops GI: Inspection: non-distended GI Palp: Yes Soft to palpation and No Tenderness to palpation present (GI) : General: Yes bladder normal to palpation Back/Spine/Pelvis: Back: no CVA tenderness Other: No pain on neck flexion, no point tenderness of spinous processes Skin: Other: No lesions edema or erythema Neuro: Sensory Exam: normal sensation Other: Globally weak Extrem: General: no edema H&P: Results Labs Labs: Short CBC 10/21/24 Range/Units 21:37 WBC 14.0 H (4.5-10.0) K/mm3 Hgb 14.7 (14.0-18.0) g/dL Hct 47.2 (42.0-52.0) % Plt Count 212 (150-375) k/mm3 [facility] 10/21/24 10/21/24 21:36 22:29 Sodium Cancelled 137 Potassium Cancelled 4.2 Chloride Cancelled 102 Carbon Dioxide Cancelled 29 BUN Cancelled 37 H D Creatinine Cancelled 1.84 H Glucose Cancelled 110 Calcium Cancelled 10.2 Cardiac Enzymes 10/21/24 10/22/24 Range/Units 22:29 01:38 Troponin I 0.055 H* 0.059 H* (0.000-0.034) ng/mL Liver Function 10/21/24 10/21/24 Range/Units 21:36 22:29 Total Bilirubin Cancelled 0.7 AST Cancelled 39 ALT Cancelled 20 Alkaline Phosphatase Cancelled 96 Albumin Cancelled 4.7 Urine 10/21/24 Range/Units 22:29 Urine Color Yellow (Yellow) Urine Appearance Clear (Clear) Urine pH 7.5 (5.0-9.0) Ur Specific [place] 1.021 (1.001-1.035) Urine Protein 1+ H (Negative) mg/dL Urine Glucose (UA) 3+ H (Negative) mg/dL Assessment and Plan Assessment and plan (1) Weakness: Code(s): R53.1 - Weakness Status: Acute Assessment and Plan: Unclear etiology. PTOT eval as. Ambulate with assistance. Fall precautions. (2) Fever: Code(s): R50.9 - Fever, unspecified Status: Acute Assessment and Plan: Unclear origin. Currently receiving empiric antibiotics with cefepime vancomycin. Blood cultures pending. Tylenol p.r.n., monitor fever. (3) Leukocytosis: Code(s): D72.829 - Elevated white blood cell count, unspecified Status: Acute Assessment and Plan: Continue to trend (4) CKD (chronic kidney disease): Code(s): N18.9 - Chronic kidney disease, unspecified Status: Acute Assessment and Plan: Possibly KALLI on CKD. Could be KALLI as he was last discharged from [facility] with Eliquis 5 mg p.o. b.i.d. but he is now on 2.5 mg p.o. b.i.d.. Serum creatinine in 2022 1.2, now 1.84. Receiving fluid resuscitation, continue to trend. Daily weights and intake/output. (5) Elevated troponin: Code(s): R77.8 - Other specified abnormalities of plasma proteins Status: Acute Assessment and Plan: No chest pain or shortness of breath. Continue to trend to peak. Plan Patient wishes to be full code. Surrogate and poultry offal icer is his . Dementia with baseline A&O x1. SCDs. Decrease lactated Ringer's from 150 cc to 75 cc considering his heart failure. Hospitalist [facility] Advance Care Plan I have confirmed that the patient's Advanced Care Plan is present, code status is documented, or surrogate decision maker is listed in patient medical record.: Yes Medication Reconciliation I have utilized all available resources to obtain, update and review the patients current medications (includes all prescriptions, OTC, herbals, cannabis, and nutritional supplements).: Yes
[2024-10-22 06:50] LABS: Hematocrit 42.5 % (42.0-52.0); Hemoglobin 13.4 g/dL (14.0-18.0); Immature Granulocyte Percent A 0.3 % (0-0.5); Lymphocytes Absolute Auto 2.91 K/mm3 (0.9-3.2); Mean Corpuscular HGB Conc 31.5 g/dl (32-36); Mean Corpuscular Hemoglobin 33.5 pg (26-34); Mean Corpuscular Volume 106.3 fl (80-100); Nucleated Red Blood Cells Absolute Auto 0.000 K/mm3 (0.0-0.012); Nucleated Red Blood Cells Perc 0.0 % (0.0-0.2); Platelet Count Result 195 k/mm3 (150-375); Red Blood Count 4.00 M/mm3 (4.6-6.20); White Blood Count 12.9 K/mm3 (4.5-10.0)
[2024-10-22 07:07] LABS: Anion Gap 7 mmol/L (4-12); Blood Urea Nitrogen 29 mg/dL (9-20); Calcium 9.3 mg/dL (8.4-10.2); Carbon Dioxide 24 mmol/L (22-30); Chloride 112 mmol/L (98-107); Estimated CRCL calculation 34 ml/min; Estimated Glomerular Filt Rate 41; Glucose 105 mg/dL (65-110); Magnesium 2.3 mg/dL (1.6-2.3); Potassium 4.1 mmol/L (3.4-5.0); Sodium 143 mmol/L (137-145)
[2024-10-22 07:21] LABS: Troponin I 0.071 ng/mL (0.000-0.034)
[2024-10-22 07:22] LABS: Procalcitonin 0.1 ng/mL
[2024-10-22 07:33] LABS: Burr Cells 1+; Macrocytosis 1+ (NORMAL); Schistocytes None Seen
--- NOTE | 2024-10-22 08:23 | P.PNIM_ITS ---
Progress Note: A&P Assessment and Plan (1) Acute kidney injury: Code(s): N17.9 - Acute kidney failure, unspecified Status: Acute (2) Fever: Code(s): R50.9 - Fever, unspecified Status: Acute Plan 84-year-old male with past medical history dementia baseline A&O x1 history taken from his , paroxysmal atrial fibrillation on Eliquis, CHF, prostate cancer on bicalutamide, non-Hodgkin lymphoma 2005, Hodgkin lymphoma 2009, hypertension, CKD, history of permanent pacemaker presents to [facility] ER on 10/22/2024 with weakness. (1) Weakness: Code(s): R53.1 - Weakness Status: Acute Assessment and Plan: Unclear etiology. PTOT eval as. Ambulate with assistance. Fall precautions. Sepsis vs SIRS Fever leukocytosis Upon arrival in the ED, and fever, leukocytosis, Code(s): R50.9 - Fever, unspecified Status: Acute Assessment and Plan: Unclear origin. Currently receiving empiric antibiotics with cefepime vancomycin. Blood cultures pending. Tylenol p.r.n., monitor fever. The CT chest abdomen pelvis shows no acute intra-abdominal issues, no consolidation in the lung. UA does not the suggest infection respiratory pathogen PCR negative Patient has history of lymphoma, need to rule out relapse of lymphoma Consult heme oncologist for evaluation treatment CKD (chronic kidney disease): Code(s): N18.9 - Chronic kidney disease, unspecified Status: Acute Assessment and Plan: Serum creatinine in 2022 1.2, now 1.84. Receiving fluid resuscitation, Creatinine is trending down Elevated troponin: Code(s): R77.8 - Other specified abnormalities of plasma proteins Status: Acute Assessment and Plan: No chest pain or shortness of breath. Continue to trend to peak. A possible demand ischemia Patient is on aspirin and Plavix continue Paroxysmal AFib Continue Eliquis and metoprolol p.o. Subjective Date/time seen: 10/22/24 08:23 Interval history: I saw exam patient today in presents of patient's , patient has mental dementia, but on the baseline. Patient denies headache, vision change, fever, chills, chest pain, cough, abdomen pain, nausea vomiting diarrhea or dysuria. Exam Narrative: GENERAL: Pleasant, in no acute distress. Well-nourished. - EYES: EOMI. Anicteric. - HENT: Moist mucous membranes. - LUNGS: Clear to auscultation bilateral ly, no wheezing, rhonchi, or rales. - CARDIOVASCULAR: Regular rate and rhyth m. No murmur. No JVD. - ABDOMEN: Soft, non-tender and non-dist ended. No palpable masses. - EXTREMITIES: No edema. Peripheral puls es 2+. Non-tender. - NEUROLOGIC: No focal neurological defi cits. CN II-XII grossly intact. - PSYCHIATRIC: Awake, Alert and oriented x 3. Appropriate mood and affect. - SKIN: No rashes or lesions. Warm. - LYMPH: No cervical lymphadenopathy. Objective Data Vital Signs Vital Signs: Vital Signs - 24 hr 10/21/24 21:10 10/21/24 21:15 10/21/24 21:39 Temperature 98.5 F Pulse Rate 81 86 81 Respiratory Rate 17 19 Blood Pressure 158/75 H 158/75 H Pulse Oximetry 98 100 Oxygen Delivery Room Air 10/21/24 22:00 10/22/24 00:00 10/22/24 02:21 Temperature 98.7 F Pulse Rate 80 80 Respiratory Rate 22 H 21 H Blood Pressure 133/71 159/78 H Pulse Oximetry 97 99 Oxygen Delivery 10/22/24 02:27 Temperature 100.5 F H Pulse Rate Respiratory Rate Blood Pressure Pulse Oximetry Oxygen Delivery Intake/Output Intake/Output: Intake & Output 10/19/24 10/20/24 10/21/24 10/22/24 23:59 23:59 23:59 23:59 Intake Total 50 Balance 50 Meds/Results Medications: Active Medications Generic Name Dose Route Start Last Admin Trade Name Freq PRN Reason Stop Dose Admin Cefepime HCl 2 gm/ Sodium 50 mls @ 100 mls/hr 10/22/24 14:00 Chloride IVPB Q12H NICOLAS Lactated Ringer's 1,000 mls @ 150 mls/hr 10/22/24 02:28 10/22/24 04:34 Lr - Lactated Ringers Iv IV CONT 10/22/24 09:07 Not Given .[id number] STA Vancomycin HCl 1 each 10/22/24 02:08 Vancomycin For Acute Kidney Injury IVPB PRN PRN Vancomycin Protocol Radiology Results: ITS Impressions Chest X-Ray 10/22/24 07:36 Impression: 1: Bibasilar infiltrates may represent atelectasis/scarring or less likely pneumonia. Head CT 10/22/24 07:37 Impression: No acute intracranial hemorrhage or suspicious mass effect. Labs Labs: Laboratory Results - last 24 hr 10/21/24 10/21/24 10/21/24 21:36 21:37 22:29 WBC 14.0 H RBC 4.49 L Hgb 14.7 Hct 47.2 MCV 105.1 H MCH 32.7 MCHC 31.1 L RDW 14.8 H Plt Count 212 MPV 10.7 H Immature Gran % (Auto) 0.4 Neut % (Auto) 68.8 Lymph % (Auto) 17.7 L [place] % (Auto) 11.2 H Eos % (Auto) 1.3 Baso % (Auto) 0.6 Lymph # (Auto) 2.48 [place] # (Auto) 1.6 H Eos # (Auto) 0.2 Baso # (Auto) 0.1 Abs Immat Gran (auto) 0.05 H Absolute Neuts (auto) 9.7 H Absolute Nucleated RBC 0.000 Band Neutrophils % Not Reportable Nucleated RBC % 0.0 Platelet Estimate Adequate Anisocytosis 1+ Macrocytosis 1+ Omar Cells Schistocytes None seen PT 14.3 INR 1.1 APTT 30.5 VBG pH 7.401 H VBG pCO2 45.8 VBG pO2 33.3 L VBG HCO3 27.8 O2 Delivery Device Room air O2 Liters/Min Not Reportable FiO2 21 Sodium Cancelled 137 Potassium Cancelled 4.2 Chloride Cancelled 102 Carbon Dioxide Cancelled 29 Anion Gap Cancelled 6 BUN Cancelled 37 H D Creatinine Cancelled 1.84 H Estim Creat Clear Calc Cancelled 30 Estimated GFR Cancelled 35 L Glucose Cancelled 110 Lactic Acid 1.3 Calcium Cancelled 10.2 Phosphorus 3.6 Magnesium 2.6 H Total Bilirubin Cancelled 0.7 AST Cancelled 39 ALT Cancelled 20 Alkaline Phosphatase Cancelled 96 Troponin I 0.055 H* NT-Pro-B Natriuret Pep 1880 H Total Protein Cancelled 8.1 Albumin Cancelled 4.7 Lipase 237 Procalcitonin TSH (Reflex) 2.550 Urine Color Yellow Urine Appearance Clear Urine pH 7.5 Ur Specific [place] 1.021 Urine Protein 1+ H Urine Glucose (UA) 3+ H Urine Ketones Negative Ur Blood (Man) Negative Urine Nitrate Negative Urine Bilirubin Negative Urine Urobilinogen 0.2 Leukocyte Esterase Rfl Negative Urine RBC 0-2 Urine WBC 0-5 Ur Squamous Epith Cells None seen Urine Bacteria None seen Urine Casts 0-2 Nasal MRSA (PCR) Urine Opiates Screen Negative Urine Methadone Screen Negative Ur Barbiturates Screen Negative Ur Phencyclidine Scrn Negative Ur Amphetamine Screen Negative U Benzodiazepines Scrn Negative Urine Cocaine Screen Negative U Cannabinoids Screen Negative Ethyl Alcohol < 10 Influenza A (RT-PCR) Negative Influenza B (RT-PCR) Negative RSV (RT-PCR) Negative SARS-CoV-2 RNA (RT-PCR) Negative 10/22/24 10/22/24 10/22/24 01:38 02:35 06:34 WBC 12.9 H RBC 4.00 L Hgb 13.4 L Hct 42.5 MCV 106.3 H MCH 33.5 MCHC 31.5 L RDW 14.7 H Plt Count 195 MPV 10.8 H Immature Gran % (Auto) 0.3 Neut % (Auto) 63.6 Lymph % (Auto) 22.5 [place] % (Auto) 12.6 H Eos % (Auto) 0.6 Baso % (Auto) 0.4 Lymph # (Auto) 2.91 [place] # (Auto) 1.6 H Eos # (Auto) 0.1 Baso # (Auto) 0.1 Abs Immat Gran (auto) 0.04 H Absolute Neuts (auto) 8.2 H Absolute Nucleated RBC 0.000 Band Neutrophils % Not Reportable Nucleated RBC % 0.0 Platelet Estimate Adequate Anisocytosis Macrocytosis 1+ [place] Cells 1+ Schistocytes None seen PT INR APTT VBG pH VBG pCO2 VBG pO2 VBG HCO3 O2 Delivery Device O2 Liters/Min FiO2 Sodium 143 Potassium 4.1 Chloride 112 H Carbon Dioxide 24 Anion Gap 7 BUN 29 H Creatinine 1.60 H Estim Creat Clear Calc 34 Estimated GFR 41 L Glucose 105 Lactic Acid Calcium 9.3 Phosphorus Magnesium 2.3 Total Bilirubin AST ALT Alkaline Phosphatase Troponin I 0.059 H* 0.071 H* D NT-Pro-B Natriuret Pep Total Protein Albumin Lipase Procalcitonin 0.1 TSH (Reflex) Urine Color Urine Appearance Urine pH Ur Specific [place] Urine Protein Urine Glucose (UA) Urine Ketones Ur Blood (Man) Urine Nitrate Urine Bilirubin Urine Urobilinogen Leukocyte Esterase Rfl Urine RBC Urine WBC Ur Squamous Epith Cells Urine Bacteria Urine Casts Nasal MRSA (PCR) Not detected Urine Opiates Screen Urine Methadone Screen Ur Barbiturates Screen Ur Phencyclidine Scrn Ur Amphetamine Screen U Benzodiazepines Scrn Urine Cocaine Screen U Cannabinoids Screen Ethyl Alcohol Influenza A (RT-PCR) Influenza B (RT-PCR) RSV (RT-PCR) SARS-CoV-2 RNA (RT-PCR)
--- NOTE | 2024-10-22 08:39 | ECHO_ITS ---
Patient Info Name: Zion Pathak Age: 84 years : 1940 Gender: Male Ht: 71 in Wt: 203 lbs BSA: 2.17 m2 HR: 89 bpm BP: 125 / 80 mmHg Technical Quality: Good Exam Date: 10/22/2024 2:12 PM Patient Status: I Admit Date: 10/22/2024 Exam Type: CA echo dop color flow w con Complete two-dimensional, color flow and Doppler transthoracic echocardiogram is performed with contrast to opacify the left ventricle and to improve the deliniation of the left ventricle endocardial borders. Staff Referring Physician: Elias [employer] Ax Technical Architect: Miranda Warner Attending Provider: Sylwia Stahl Contrast/Agitated Saline Contrast/Ag. Saline: Definity Amount: 2.00 ml Administered By: Miranda Warner Summary 1. Definity contrast administered improved wall motion interpretation. 2. Left ventricular chamber dimension is normal. 3. Left ventricular systolic function is normal, estimated at 55-60. 4. There is moderate concentric increased left ventricular wall thickness. 5. The left ventricular diastolic function is grade III diastolic dysfunction. 6. E/e' 14 is mildly elevated. 7. Linear artifact in right ventricle suggestive of catheter(s), pacemaker lead(s), or ICD lead(s). 8. Left atrial chamber dimension is mildly enlarged. 9. Linear artifact in the right atrium suggestive of catheter(s), pacemaker lead(s), or ICD lead(s). 10. The aortic valve is not well visualized due to significant calcification of valve. Cannot determine number of aortic valve leaflets. 11. There is severe aortic valve sclerosis. 12. There is mild aortic valve stenosis based on a peak velocity of 292 cm/s, mean gradient of 18 mmHg, and aortic valve area of 1.7 cm2. 13. There is moderate to severe aortic valve regurgitation. 14. The mitral valve has a moderately calcified annulus. 15. There is trace mitral valve regurgitation. 16. There is mild tricuspid valve regurgitation. 17. Mild pulmonary hypertension, estimated pulmonary arterial systolic pressure is 45 mmHg. 18. There is trace pulmonic regurgitation. 19. Dilated inferior vena cava with >50% collapse upon inspiration consistent with elevated right atrial pressure, 10 mmHg. Left Ventricle E/e' 14 is mildly elevated. Left ventricular chamber dimension is normal. Left ventricular systolic function is normal, estimated at 55-60. There is moderate concentric increased left ventricular wall thickness. The left ventricular diastolic function is grade III diastolic dysfunction. Definity contrast administered improved wall motion interpretation. Right Ventricle Right ventricular chamber dimension is not well visualized. Linear artifact in right ventricle suggestive of catheter(s), pacemaker lead(s), or ICD lead(s). Left Atria Left atrial chamber dimension is mildly enlarged. Right Atria Right atrial chamber dimension is normal. Linear artifact in the right atrium suggestive of catheter(s), pacemaker lead(s), or ICD lead(s). Aortic Valve The aortic valve is not well visualized due to significant calcification of valve. Cannot determine number of aortic valve leaflets. There is severe aortic valve sclerosis. There is mild aortic valve stenosis based on a peak velocity of 292 cm/s, mean gradient of 18 mmHg, and aortic valve area of 1.7 cm2. There is moderate to severe aortic valve regurgitation. Pulmonic Valve There is trace pulmonic regurgitation. Mitral Valve The mitral valve has a moderately calcified annulus. There is no mitral valve stenosis. There is trace mitral valve regurgitation. Tricuspid Valve There is mild tricuspid valve regurgitation. Mild pulmonary hypertension, estimated pulmonary arterial systolic pressure is 45 mmHg. Pericardium/Pleural There is no pericardial effusion. Inferior Vena Cava Dilated inferior vena cava with >50% collapse upon inspiration consistent with elevated right atrial pressure, 10 mmHg. Aorta The aortic root size at the sinus of Valsalva is normal. Left Ventricular Outflow Tract Name Value Normal LVOT 2D LVOT Diameter 2.0 cm LVOT Doppler LVOT Peak Velocity 146 cm/s LVOT Peak Gradient 7 mmHg LVOT Mean Gradient 4 mmHg LVOT VTI 33 cm LVOT VTI/AV VTI Ratio 0.6 LVOT Stroke Volume 104 ml LVOT CO 6.7 l/min LVOT CI 3.1 l/min/m2 Pulmonic Valve Name Value Normal RVOT Doppler RVOT Peak Velocity 74 cm/s RVOT Peak Gradient 2 mmHg PV Doppler PV Peak Velocity 102 cm/s PV Peak Gradient 4 mmHg Mitral Valve Name Value Normal MV Diastolic Function MV E Peak Velocity 92 cm/s MV A Peak Velocity 30 cm/s MV E/A 3.1 MV Decel Time (PW) 235 ms MV Annular TDI MV E/e' (Septal) 16.3 MV E/e' (Lateral) 13.4 MV E/e' (Average) 14.8 Tricuspid Valve Name Value Normal TV Regurgitation Doppler TR Peak Velocity 296 cm/s TR Peak Gradient 35 mmHg Estimated PAP/RSVP RA Pressure 10 mmHg <=5 PA Systolic Pressure 45 mmHg <36 RV Systolic Pressure 45 mmHg <36 Aortic Valve Name Value Normal AV Doppler AV Peak Velocity 292 cm/s AV Peak Gradient 31 mmHg AV Mean Gradient 18 mmHg AV VTI 60 cm AV Area (Cont Eq VTI) 1.7 cm2 >=3.0 AV Area (Cont Eq Teofilo) 1.5 cm2 AV DI (Teofilo) 0.50 AV Regurgitation 2D LVOT Area 3.1 cm2 Ventricles Name Value Normal LV Dimensions 2D/MM IVS Diastolic Thickness (2D) 1.2 cm 0.6-1.0 LVID Diastole (2D) 3.6 cm 4.2-5.8 LVIW Diastolic Thickness (2D) 1.7 cm 0.6-1.0 LVID Systole (2D) 2.8 cm 2.5-4.0 LVOT Diameter 2.0 cm LV Mass (2D Cubed) 192.24 g 88.00-224.00 LV Mass Index (2D Cubed) 89 g/m2 49-115 Relative Wall Thickness (2D) 0.93 <=0.42 LV Fractional Shortening/Ejection Fraction 2D/MM LV Fractional Shortening (2D) 23 % 25-43 LV EF (2D Teichholz) 46 % LV Diastolic Volume (4C MOD) 96 ml LV EF (4C MOD) 45 % LV Diastolic Volume (2C MOD) 79 ml LV EF (2C MOD) 33 % LV Diastolic Volume (BP MOD) 87 ml 62-150 LV Diastolic Volume Index (BP MOD) 40 ml/m2 34-74 LV Systolic Volume (BP MOD) 55 ml 21-61 LV Systolic Volume Index (BP MOD) 25 ml/m2 11-31 LV EF (BP MOD) 37 % 52-72 LV Diastolic Length (4C) 8.9 cm LV Systolic Length (4C) 8.0 cm LV Stroke Volume (4C MOD) 43 ml Atria Name Value Normal LA Dimensions LA Volume (4C A-L) 71 ml LA Volume (BP A-L) 78 ml RA Dimensions RA Systolic Major [place] Length (4C) 6.1 cm 2.1-2.7 RA Area (4C) 18.2 cm2 <=18.0 Report Signatures
[2024-10-22] MEDS: ASPIRIN 81 MG CHEWABLE TABLET PO (10:14)
[2024-10-22] MEDS: MEMANTINE 10 MG TABLET PO ×2 (10:15→17:25)
[2024-10-22] MEDS: EMPAGLIFLOZIN 10 MG TABLET PO (10:15)
[2024-10-22] MEDS: DONEPEZIL HCL 10 MG TABLET PO (10:15)
[2024-10-22] MEDS: ROSUVASTATIN 20 MG TABLET PO (10:15)
[2024-10-22] MEDS: METOPROLOL SUCCINATE EXT REL 25 MG TABCR PO (10:15)
[2024-10-22] MEDS: GENTAMICIN SULFATE 0.1% OINT 15 GM TUBE 1 APPLIC TOPICAL (10:15)
[2024-10-22] MEDS: APIXABAN 2.5 MG TABLET PO ×2 (10:15→17:25)
[2024-10-22] MEDS: BICALUTAMIDE (*CHEMO) 50 MG TABLET PO (10:16)
[2024-10-22] MEDS: ACETAMINOPHEN 500 MG TABLET 1000 MG PO ×2 (10:16→17:25)
[2024-10-22] MEDS: PERFLUTREN LIPID MICROSPHERES 1.5 ML VIAL DILUTED TO 10 ML TOTAL VOLUME IV PUSH (15:56)
--- NOTE | 2024-10-22 16:04 | IVDEFINITY ---
Prior to administration of IV Definity the patient was educated on the risks and benefits of the imaging enhancing agent including potential adverse side effects. The patient verbalized understanding. Allergies were verified. No exclusion criteria were identified and at least one of the following inclusion criteria were met: 1) physician request, 2) patient technically difficult to image (per the [place] [employer] guidelines of two or more segments not discernable within the apical view), or 3) questionable left ventricular function. ?
[2024-10-22] MEDS: CHOLECALCIFEROL (VITAMIN D3) 25 MCG (1,000 UNITS) TABLET 50 MCG PO (20:11)
[2024-10-23] VITALS (9 sets, daily range): BP systolic 112–152; BP diastolic 67–90; PULSE 79–85; RESP 14–18; TEMP 36.2–36.6; O2SAT 98–100
[2024-10-23] MEDS: CEFEPIME 2 GM in SODIUM CHLORIDE 0.9% IV 50 ML 100 ML IVPB ×2 (01:38→13:37)
[2024-10-23] MEDS: APIXABAN 2.5 MG TABLET PO ×2 (08:04→16:47)
[2024-10-23] MEDS: ASPIRIN 81 MG CHEWABLE TABLET PO (08:04)
[2024-10-23] MEDS: MEMANTINE 10 MG TABLET PO ×2 (08:04→16:47)
[2024-10-23] MEDS: ACETAMINOPHEN 500 MG TABLET 1000 MG PO ×2 (08:04→16:47)
[2024-10-23] MEDS: DONEPEZIL HCL 10 MG TABLET PO (08:05)
[2024-10-23] MEDS: ROSUVASTATIN 20 MG TABLET PO (08:05)
[2024-10-23] MEDS: METOPROLOL SUCCINATE EXT REL 25 MG TABCR PO (08:05)
[2024-10-23] MEDS: BICALUTAMIDE (*CHEMO) 50 MG TABLET PO (08:05)
[2024-10-23] MEDS: EMPAGLIFLOZIN 10 MG TABLET PO (08:06)
--- NOTE | 2024-10-23 10:09 | P.PNIM_ITS ---
Progress Note: A&P Assessment and Plan (1) Acute kidney injury: Code(s): N17.9 - Acute kidney failure, unspecified Status: Acute (2) Fever: Code(s): R50.9 - Fever, unspecified Status: Acute Plan 84-year-old male with past medical history dementia baseline A&O x1 history taken from his , paroxysmal atrial fibrillation on Eliquis, CHF, prostate cancer on bicalutamide, non-Hodgkin lymphoma 2005, Hodgkin lymphoma 2009, hypertension, CKD, history of permanent pacemaker presents to [facility] ER on 10/22/2024 with weakness. (1) Weakness: Code(s): R53.1 - Weakness Status: Acute Assessment and Plan: ambulate with assistance. Fall precautions. No focal weakness or abnormal sensation Start PT OT Sepsis vs SIRS Fever leukocytosis Upon arrival in the ED, and fever, leukocytosis, Code(s): R50.9 - Fever, unspecified Status: Acute Assessment and Plan: Unclear origin. Currently receiving empiric antibiotics with cefepime vancomycin. Blood cultures pending. Tylenol p.r.n., monitor fever. The CT chest abdomen pelvis shows no acute intra-abdominal issues, no consolidation in the lung. UA does not the suggest infection respiratory pathogen PCR negative Patient has history of lymphoma, need to rule out relapse of lymphoma Consult heme oncologist for evaluation treatment Pending blood culture CKD (chronic kidney disease): Code(s): N18.9 - Chronic kidney disease, unspecified Status: Acute Assessment and Plan: Serum creatinine in 2022 1.2, now 1.84. Receiving fluid resuscitation, Creatinine is trending down Elevated troponin: Code(s): R77.8 - Other specified abnormalities of plasma proteins Status: Acute Assessment and Plan: No chest pain or shortness of breath. Continue to trend to peak. possible demand ischemia Patient is on aspirin and Plavix continue Echocardiogram report normal EF, Paroxysmal AFib Continue Eliquis and metoprolol p.o. Subjective Date/time seen: 10/23/24 10:09 Interval history: Patient is afebrile overnight, hemodynamically stable, Leukocytosis improving Patient feels comfortable denies fever, chills, headache, abdomen pain, cough, nausea vomiting diarrhea dysuria Blood culture pending Exam Narrative: GENERAL: Pleasant, in no acute distress. Well-nourished. - EYES: EOMI. Anicteric. - HENT: Moist mucous membranes. - LUNGS: Clear to auscultation bilateral ly, no wheezing, rhonchi, or rales. - CARDIOVASCULAR: Regular rate and rhyth m. No murmur. No JVD. - ABDOMEN: Soft, non-tender and non-dist ended. No palpable masses. - EXTREMITIES: No edema. Peripheral puls es 2+. Non-tender. - NEUROLOGIC: No focal neurological defi cits. CN II-XII grossly intact. - PSYCHIATRIC: Awake, Alert and oriented x 3. Appropriate mood and affect. - SKIN: No rashes or lesions. Warm. - LYMPH: No cervical lymphadenopathy. Objective Data Vital Signs Vital Signs: Vital Signs - 24 hr 10/22/24 10:15 10/22/24 12:00 10/22/24 12:00 Temperature Pulse Rate 84 70 80 Respiratory Rate 18 Blood Pressure 125/80 Pulse Oximetry 97 Oxygen Delivery 10/22/24 14:59 10/22/24 16:00 10/22/24 16:00 Temperature 97.5 F L Pulse Rate 80 81 Respiratory Rate 18 Blood Pressure 120/69 Pulse Oximetry 95 Oxygen Delivery Room Air 10/22/24 20:00 10/22/24 20:00 10/22/24 20:00 Temperature 97.7 F Pulse Rate 81 81 80 Respiratory Rate 18 18 Blood Pressure 125/79 Pulse Oximetry 95 98 Oxygen Delivery Room Air 10/23/24 00:00 10/23/24 00:05 10/23/24 04:00 Temperature 97.9 F Pulse Rate 80 81 80 Respiratory Rate 18 Blood Pressure 142/87 H Pulse Oximetry 98 Oxygen Delivery 10/23/24 04:00 10/23/24 08:00 10/23/24 08:00 Temperature 97.8 F 97.2 F L Pulse Rate 85 82 Respiratory Rate 18 16 Blood Pressure 112/90 152/80 H Pulse Oximetry 100 98 Oxygen Delivery Room Air 10/23/24 08:00 10/23/24 08:05 Temperature Pulse Rate 82 82 Respiratory Rate Blood Pressure Pulse Oximetry Oxygen Delivery Intake/Output Intake/Output: Intake & Output 10/20/24 10/21/24 10/22/24 10/23/24 23:59 23:59 23:59 23:59 Intake Total 520 0 Output Total 600 700 Balance -80 -700 Meds/Results Medications: Active Medications Generic Name Dose Route Start Last Admin Trade Name Gladis PRN Reason Stop Dose Admin Acetaminophen 1,000 mg 10/22/24 09:00 10/23/24 08:04 Acetaminophen 500 Mg Tablet PO 1,000 mg BID NICOLAS Administration Apixaban 2.5 mg 10/22/24 09:00 10/23/24 08:04 Apixaban 2.5 Mg Tablet PO 2.5 mg BID NICOLAS Administration Aspirin 81 mg 10/22/24 09:30 10/23/24 08:04 Aspirin 81 Mg Chewable Tablet PO 81 mg DAILY@0800 NICOLAS Administration Bicalutamide 50 mg 10/22/24 09:15 10/23/24 08:05 Bicalutamide (*Chemo) 50 Mg Tablet PO 50 mg DAILY NICOLAS Administration Donepezil HCl 10 mg 10/22/24 09:00 10/23/24 08:05 Donepezil Hcl 10 Mg Tablet PO 10 mg DAILY NICOLAS Administration Duloxetine HCl 30 mg 10/22/24 09:00 10/23/24 08:05 Duloxetine Hcl 30 Mg Capsule.Dr PO 30 mg DAILY NICOLAS Administration Empagliflozin 10 mg 10/22/24 09:00 10/23/24 08:06 Empagliflozin 10 Mg Tablet PO 10 mg DAILY NICOLAS Administration Gentamicin Sulfate 1 applic 10/22/24 09:00 10/22/24 10:15 Gentamicin Sulfate 0.1% Oint 15 Gm Tube TOPICAL 1 applic DAILY NICOLAS Administration Cefepime HCl 2 gm/ Sodium 50 mls @ 100 mls/hr 10/22/24 14:00 10/23/24 01:38 Chloride IVPB 100 mls/hr Q12H NICOLAS Administration Memantine 10 mg 10/22/24 09:00 10/23/24 08:04 Memantine 10 Mg Tablet PO 10 mg BID NICOLAS Administration Metoprolol Succinate 25 mg 10/22/24 09:00 10/23/24 08:05 Metoprolol Succinate Ext Rel 25 Mg Tabcr PO 25 mg DAILY NICOLAS Administration Miscellaneous Information 1 each 10/22/24 00:01 10/23/24 00:55 Gent And Triamcinolone Topicals Please Add Where To Apply XX 11/21/24 00:00 Not Given CLARIFY [facility] Rosuvastatin Calcium 20 mg 10/22/24 09:00 10/23/24 08:05 Rosuvastatin 20 Mg Tablet PO 20 mg DAILY NICOLAS Administration Triamcinolone Acetonide 1 applic 10/22/24 08:33 Triamcinolone Acet 0.1% Cream 15 Gm Tube TOPICAL BID PRN Itching Vitamin D 50 mcg 10/22/24 21:00 10/22/24 20:11 Cholecalciferol (Vitamin D3) 25 Mcg (1,000 Units) Tablet PO 50 mcg HS NICOLAS Administration Radiology Results: ITS Impressions Chest X-Ray 10/22/24 07:36 Impression: 1: Bibasilar infiltrates may represent atelectasis/scarring or less likely pneumonia. Head CT 10/22/24 07:37 Impression: No acute intracranial hemorrhage or suspicious mass effect. Chest/Abdomen/Pelvis CT 10/22/24 08:54 IMPRESSION: 1. No acute cardiopulmonary disease or acute intra-abdominal/pelvic process. 2. Cardiomegaly with right atrial enlargement. 3. Prostatomegaly and a few bladder stones. 4. 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
[2024-10-23] MEDS: GENTAMICIN SULFATE 0.1% OINT 15 GM TUBE 1 APPLIC TOPICAL (13:37)
[2024-10-23] MEDS: CHOLECALCIFEROL (VITAMIN D3) 25 MCG (1,000 UNITS) TABLET 50 MCG PO (20:41)
[2024-10-24] VITALS (7 sets, daily range): BP systolic 116–147; BP diastolic 64–90; PULSE 79–90; RESP 14–16; TEMP 36.2–36.6; O2SAT 98–99
[2024-10-24] MEDS: CEFEPIME 2 GM in SODIUM CHLORIDE 0.9% IV 50 ML 100 ML IVPB (01:55)
[2024-10-24] MEDS: DONEPEZIL HCL 10 MG TABLET PO (07:57)
[2024-10-24] MEDS: ASPIRIN 81 MG CHEWABLE TABLET PO (07:57)
[2024-10-24] MEDS: ACETAMINOPHEN 500 MG TABLET 1000 MG PO (07:57)
[2024-10-24] MEDS: ROSUVASTATIN 20 MG TABLET PO (07:57)
[2024-10-24] MEDS: EMPAGLIFLOZIN 10 MG TABLET PO (07:57)
[2024-10-24] MEDS: MEMANTINE 10 MG TABLET PO (07:57)
[2024-10-24] MEDS: METOPROLOL SUCCINATE EXT REL 25 MG TABCR PO (07:57)
[2024-10-24] MEDS: APIXABAN 2.5 MG TABLET PO (07:57)
[2024-10-24] MEDS: BICALUTAMIDE (*CHEMO) 50 MG TABLET PO (07:57)
--- NOTE | 2024-10-24 10:04 | PM.IMPN ---
Progress Note: A&P Assessment and Plan (1) Acute kidney injury: Code(s): N17.9 - Acute kidney failure, unspecified Status: Acute (2) Fever: Code(s): R50.9 - Fever, unspecified Status: Acute Plan 84-year-old male with past medical history dementia baseline A&O x1 history taken from his , paroxysmal atrial fibrillation on Eliquis, CHF, prostate cancer on bicalutamide, non-Hodgkin lymphoma 2005, Hodgkin lymphoma 2009, hypertension, CKD, history of permanent pacemaker presents to [facility] ER on 10/22/2024 with weakness. (1) Weakness: Code(s): R53.1 - Weakness Status: Acute Assessment and Plan: ambulate with assistance. Fall precautions. No focal weakness or abnormal sensation Start PT OT Sepsis vs SIRS Fever leukocytosis Upon arrival in the ED, and fever, leukocytosis, Code(s): R50.9 - Fever, unspecified Status: Acute Assessment and Plan: Unclear origin. Currently receiving empiric antibiotics with cefepime vancomycin. Blood cultures pending. Tylenol p.r.n., monitor fever. The CT chest abdomen pelvis shows no acute intra-abdominal issues, no consolidation in the lung. UA does not the suggest infection respiratory pathogen PCR negative Patient has history of lymphoma, need to rule out relapse of lymphoma Consult heme oncologist for evaluation treatment Pending blood culture CKD (chronic kidney disease): Code(s): N18.9 - Chronic kidney disease, unspecified Status: Acute Assessment and Plan: Serum creatinine in 2022 1.2, now 1.84. Receiving fluid resuscitation, Creatinine is trending down Elevated troponin: Code(s): R77.8 - Other specified abnormalities of plasma proteins Status: Acute Assessment and Plan: No chest pain or shortness of breath. Continue to trend to peak. possible demand ischemia Patient is on aspirin and Plavix continue Echocardiogram report normal EF, Paroxysmal AFib Continue Eliquis and metoprolol p.o. Subjective Date/time seen: 10/24/24 10:04 Exam Narrative: GENERAL: Pleasant, in no acute distress. Well-nourished. - EYES: EOMI. Anicteric. - HENT: Moist mucous membranes. - LUNGS: Clear to auscultation bilaterally, no wheezing, rhonchi, or rales. - CARDIOVASCULAR: Regular rate and rhythm. No murmur. No JVD. - ABDOMEN: Soft, non-tender and non-distended. No palpable masses. - EXTREMITIES: No edema. Peripheral pulses 2+. Non-tender. - NEUROLOGIC: No focal neurological deficits. CN II-XII grossly intact. - PSYCHIATRIC: Awake, Alert and oriented x 3. Appropriate mood and affect. - SKIN: No rashes or lesions. Warm. - LYMPH: No cervical lymphadenopathy. Const: General: comfortable and no acute distress Other: A&O x1 HENMT: Mouth: Yes moist mucous membranes Eyes: Pupils: Equal, round and reactive pupils present Neck: Neck: supple Resp: Effort & Inspection: normal respiratory effort Auscultation: clear to auscultation bilaterally Cardio: Rate: regular rate Rhythm: regular rhythm Heart sounds: no gallops GI: Inspection: non-distended : General: Yes bladder normal to palpation and Yes no CVA tenderness Back/Spine/Pelvis: Back: no CVA tenderness Other: No pain on neck flexion, no point tenderness of spinous processes Skin: Other: No lesions edema or erythema Neuro: Cranial nerves: Yes Equal, round and reactive pupils present Sensory Exam: normal sensation Other: Globally weak Extrem: General: no edema Objective Data Vital Signs Vital Signs: Vital Signs - 24 hr 10/23/24 12:00 10/23/24 12:00 10/23/24 13:43 Temperature 97.2 F L Pulse Rate 80 80 Respiratory Rate 14 Blood Pressure 115/67 Pulse Oximetry 99 Oxygen Delivery Room Air 10/23/24 16:00 10/23/24 16:00 10/23/24 20:00 Temperature 97.3 F L 97.6 F Pulse Rate 81 80 79 Respiratory Rate 14 16 Blood Pressure 121/70 119/80 Pulse Oximetry 99 100 Oxygen Delivery 10/23/24 20:05 10/23/24 20:15 10/24/24 00:00 Temperature 97.8 F Pulse Rate 80 80 Respiratory Rate 16 Blood Pressure 142/84 H Pulse Oximetry 98 Oxygen Delivery Room Air 10/24/24 00:00 10/24/24 04:00 10/24/24 04:05 Temperature 97.7 F Pulse Rate 82 90 79 Respiratory Rate 16 Blood Pressure 147/90 H Pulse Oximetry 98 Oxygen Delivery 10/24/24 07:52 10/24/24 08:00 Temperature 97.2 F L Pulse Rate 80 Respiratory Rate 14 Blood Pressure 142/80 H Pulse Oximetry 98 Oxygen Delivery Room Air Intake/Output Intake/Output: Intake & Output 10/21/24 10/22/24 10/23/24 10/24/24 23:59 23:59 23:59 23:59 Intake Total 881 654 2705 Output Total 600 1650 650 Balance -80 -1310 450 Meds/Results Medications: Active Medications Generic Name Dose Route Start Last Admin Trade Name Gladis PRN Reason Stop Dose Admin Acetaminophen 1,000 mg 10/22/24 09:00 10/24/24 07:57 Acetaminophen 500 Mg Tablet PO 1,000 mg BID NICOLAS Administration Apixaban 2.5 mg 10/22/24 09:00 10/24/24 07:57 Apixaban 2.5 Mg Tablet PO 2.5 mg BID NICOLAS Administration Aspirin 81 mg 10/22/24 09:30 10/24/24 07:57 Aspirin 81 Mg Chewable Tablet PO 81 mg DAILY@0800 NICOLAS Administration Bicalutamide 50 mg 10/22/24 09:15 10/24/24 07:57 Bicalutamide (*Chemo) 50 Mg Tablet PO 50 mg DAILY NICOLAS Administration Donepezil HCl 10 mg 10/22/24 09:00 10/24/24 07:57 Donepezil Hcl 10 Mg Tablet PO 10 mg DAILY NICOLAS Administration Duloxetine HCl 30 mg 10/22/24 09:00 10/24/24 07:57 Duloxetine Hcl 30 Mg Capsule.Dr PO 30 mg DAILY NICOLAS Administration Empagliflozin 10 mg 10/22/24 09:00 10/24/24 07:57 Empagliflozin 10 Mg Tablet PO 10 mg DAILY NICOLAS Administration Gentamicin Sulfate 1 applic 10/22/24 09:00 10/24/24 07:57 Gentamicin Sulfate 0.1% Oint 15 Gm Tube TOPICAL Not Given DAILY NICOLAS Cefepime HCl 2 gm/ Sodium 50 mls @ 100 mls/hr 10/22/24 14:00 10/24/24 01:55 Chloride IVPB 100 mls/hr Q12H NICOLAS Administration Memantine 10 mg 10/22/24 09:00 10/24/24 07:57 Memantine 10 Mg Tablet PO 10 mg BID NICOLAS Administration Metoprolol Succinate 25 mg 10/22/24 09:00 10/24/24 07:57 Metoprolol Succinate Ext Rel 25 Mg Tabcr PO 25 mg DAILY NICOLAS Administration Miscellaneous Information 1 each 10/22/24 00:01 10/24/24 00:05 Gent And Triamcinolone Topicals Please Add Where To Apply XX 11/21/24 00:00 Not Given CLARIFY NICOLAS Rosuvastatin Calcium 20 mg 10/22/24 09:00 10/24/24 07:57 Rosuvastatin 20 Mg Tablet PO 20 mg DAILY NICOLAS Administration Triamcinolone Acetonide 1 applic 10/22/24 08:33 Triamcinolone Acet 0.1% Cream 15 Gm Tube TOPICAL BID PRN Itching Vitamin D 50 mcg 10/22/24 21:00 10/23/24 20:41 Cholecalciferol (Vitamin D3) 25 Mcg (1,000 Units) Tablet PO 50 mcg HS NICOLAS Administration Radiology Results: ITS Impressions Chest X-Ray 10/22/24 07:36 Impression: 1: Bibasilar infiltrates may represent atelectasis/scarring or less likely pneumonia. Head CT 10/22/24 07:37 Impression: No acute intracranial hemorrhage or suspicious mass effect. Chest/Abdomen/Pelvis CT 10/22/24 08:54 IMPRESSION: 1. No acute cardiopulmonary disease or acute intra-abdominal/pelvic process. 2. Cardiomegaly with right atrial enlargement. 3. Prostatomegaly and a few bladder stones. 4. 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
[2024-10-24 10:59] LABS: Hematocrit 46.0 % (42.0-52.0); Hemoglobin 14.6 g/dL (14.0-18.0); Mean Corpuscular HGB Conc 31.7 g/dl (32-36); Mean Corpuscular Hemoglobin 33.3 pg (26-34); Mean Corpuscular Volume 104.8 fl (80-100); Platelet Count Result 212 k/mm3 (150-375); Red Blood Count 4.39 M/mm3 (4.6-6.20); White Blood Count 7.6 K/mm3 (4.5-10.0)
[2024-10-24 11:19] LABS: Alanine Aminotransferase 21 U/L (6-50); Albumin Level 4.2 g/dL (3.5-5.1); Alkaline Phosphatase 81 U/L (38-126); Anion Gap 9 mmol/L (4-12); Aspartate Amino Transferase 39 U/L (17-59); Bilirubin,Total 0.8 mg/dL (0.2-1.3); Blood Urea Nitrogen 31 mg/dL (9-20); Calcium 9.9 mg/dL (8.4-10.2); Carbon Dioxide 25 mmol/L (22-30); Chloride 107 mmol/L (98-107); Estimated CRCL calculation 34 ml/min; Estimated Glomerular Filt Rate 42; Glucose 164 mg/dL (65-110); Potassium 3.5 mmol/L (3.4-5.0); Sodium 141 mmol/L (137-145); Total Protein 7.5 g/dL (6.3-8.2)
--- NOTE | 2024-10-24 12:51 | PM.DS ---
DS: Admitting Diagnosis Discharge Date 10/24/2024 Admitting Diagnosis Fever DS: Discharge Diagnosis Discharge Diagnosis (1) Acute kidney injury: Code(s): N17.9 - Acute kidney failure, unspecified Status: Acute (2) Fever: Code(s): R50.9 - Fever, unspecified Status: Acute DS: Summary Hospital Course Hospital Course: 84-year-old male with past medical history dementia baseline A&O x1 history taken from his , paroxysmal atrial fibrillation on Eliquis, CHF, prostate cancer on bicalutamide, non-Hodgkin lymphoma 2005, Hodgkin lymphoma 2009, prostate cancer, hypertension, CKD, history of permanent pacemaker presents to [facility] ER on 10/22/2024 with weakness. Weakness: ambulate with assistance. Fall precautions. No focal weakness or abnormal sensation PT OT Sepsis vs SIRS : Fever leukocytosis Upon arrival in the ED, and fever, leukocytosis, Discontinued cefepime upon discharge Started on empiric amoxicillin/clavulanic acid for 5 days Fever, unspecified Unclear origin. Currently receiving empiric antibiotics with cefepime vancomycin. Blood cultures pending. Tylenol p.r.n., monitor fever. The CT chest abdomen pelvis shows no acute intra-abdominal issues, no consolidation in the lung. UA does not the suggest infection respiratory pathogen PCR negative Patient has history of lymphoma, need to rule out relapse of lymphoma Patient has a diagnosis of prostate cancer Consult heme oncologist for evaluation treatment as outpatient Pending blood culture CKD (chronic kidney disease): Serum creatinine in 2022 1.2, now 1.84. Receiving fluid resuscitation, Encourage fluid Creatinine is trending down Elevated troponin: No chest pain or shortness of breath. Continue to trend to peak. possible demand ischemia Patient is on aspirin and Plavix continue Echocardiogram report normal EF, Paroxysmal AFib Continue Eliquis and metoprolol p.o. On the day of discharge, the patient was seen and examined. Vital signs were stable. Physical exam were stable and labs were reviewed at length. Discharge instructions, medications, and follow-up appointments were discussed with the patient at length and all day questions were answered. ER warnings were given. Given under the day of stay to monitor fever after discontinuing IV cefepime but patient is adamant in going home. Status at Discharge Cognitive/behavioral status at discharge: Stable Time Spent with Patient Time attestation: Total time spent providing and/or coordinating discharge services: 45 minutes Exam Narrative: GENERAL: Pleasant, in no acute distress. Well-nourished. - EYES: EOMI. Anicteric. - HENT: Moist mucous membranes. - LUNGS: Clear to auscultation bilaterally, no wheezing, rhonchi, or rales. - CARDIOVASCULAR: Regular rate and rhythm. No murmur. No JVD. - ABDOMEN: Soft, non-tender and non-distended. No palpable masses. - EXTREMITIES: No edema. Peripheral pulses 2+. Non-tender. - NEUROLOGIC: No focal neurological deficits. CN II-XII grossly intact. - PSYCHIATRIC: Awake, Alert and oriented x 3. Appropriate mood and affect. - SKIN: No rashes or lesions. Warm. - LYMPH: No cervical lymphadenopathy. Const: Other: A&O x1 Back/Spine/Pelvis: Other: No pain on neck flexion, no point tenderness of spinous processes Skin: Other: No lesions edema or erythema Neuro: Other: Globally weak DS: Data Data Completed and Pending Labs on day of discharge: Labs from last 24 hours 10/24/24 10:52 WBC 7.6 RBC 4.39 L Hgb 14.6 Hct 46.0 MCV 104.8 H MCH 33.3 MCHC 31.7 L RDW 14.5 Plt Count 212 MPV 10.8 H Sodium 141 Potassium 3.5 Chloride 107 Carbon Dioxide 25 Anion Gap 9 BUN 31 H Creatinine 1.59 H Estim Creat Clear Calc 34 Estimated GFR 42 L Glucose 164 H Calcium 9.9 Total Bilirubin 0.8 AST 39 ALT 21 Alkaline Phosphatase 81 Total Protein 7.5 Albumin 4.2 Preliminary micro results at discharge 10/21/24 22:29 Blood Culture - Preliminary Blood 10/21/24 22:50 Blood Culture - Preliminary Blood Imaging Radiologist's impression: ITS Impressions Chest X-Ray 10/22/24 07:36 Impression: 1: Bibasilar infiltrates may represent atelectasis/scarring or less likely pneumonia. Head CT 10/22/24 07:37 Impression: No acute intracranial hemorrhage or suspicious mass effect. Chest/Abdomen/Pelvis CT 10/22/24 08:54 IMPRESSION: 1. No acute cardiopulmonary disease or acute intra-abdominal/pelvic process. 2. Cardiomegaly with right atrial enlargement. 3. Prostatomegaly and a few bladder stones. 4. 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 Discharge Plan Discharge Attending physician on discharge: Jarrod Ravi Discharging Clinician: Jarrod Ravi Anticipated Discharge Date/Time: 10/24/24 12:45 Patient Disposition: Home Activity: as tolerated Diet: heart healthy Discharge Instructions: In the event of fever please return to ED. Continue the antibiotic for 5 days. Encourage fluid intake Check blood pressure 1 to 2 times a day. Record and bring into your doctor for review. Call your doctor if your blood pressure is greater than 180/110 or less than 90/45. Walk with cane or other assist device. Take precautions to avoid falls. Rise slowly from a lying or sitting position. Pause before standing or walking. Contact your doctor or call 911 and come to the Emergency Room if you have any type of trauma, lightheadedness with standing or other worrisome symptoms. Avoid NSAIDs (ibuprofen, naproxen, Aleve). Tylenol is safe to take. Follow-up with your primary care provider in 1-2 weeks. Please call for appointment. Follow-up with Hematology/Oncology in 2-4 weeks. Please call for an appointment. Thank you for using [facility] for your health care needs. Patient Instructions: Antibiotic Form Patient Language: Nauruan Stand Alone Forms: General Discharge Information Follow-up/Referrals: PHYSICIAN NOT ON STAFF,NONSTAFF [Primary Care Provider] - Discharge Medications: New amoxicillin-pot clavulanate 875-125 mg tablet 1 tablet PO Q12H Qty: 10 0RF Continued gentamicin 0.1 % ointment 1 applic TOPICAL DAILY rosuvastatin 40 mg tablet 20 mg PO DAILY memantine 10 mg tablet 10 mg PO BID donepezil 10 mg tablet 10 mg PO DAILY triamcinolone acetonide 0.1 % Cream 1 applic TOPICAL BID PRN (Reason: Itching) acetaminophen 500 mg Capsule 1,000 mg PO BID cholecalciferol (vitamin D3) 50 mcg (2,000 unit) Capsule 50 mcg PO HS metoprolol succinate 25 mg tablet extended release 24 hr 25 mg PO DAILY Jardiance 10 mg tablet 10 mg PO DAILY furosemide 20 mg tablet 20 mg PO BID bicalutamide 50 mg tablet 50 mg PO DAILY duloxetine 30 mg capsule,delayed release(DR/EC) 30 mg PO DAILY Eliquis 2.5 mg tablet 2.5 mg PO BID aspirin 81 mg tablet 81 mg PO DAILY Date of admission: 10/22/24 02:40 Primary Care Provider: PHYSICIAN NOT ON STAFF,NONSTAFF Admitting Provider: Sylwia Stahl Attending physician on admission: Sylwia Stahl Condition: Stable
--- NOTE | 2024-10-25 06:15 | P.CDI_ITS ---
CDI Query Clarification Request Sepsis vs SIRS has been documented. Please clarify the patients condition: * sepsis * SIRS * other, please specify * unable to determine If SIRS, please clarify: ? SIRS due to infection/influenza please document sepsis not SIRS ? SIRS due to noninfectious cause (e.g. trauma, patel, pancreatitis) Please specify cause of SIRS ? Other ? Unknown or unable to determine The medical chart reflects the following: Sepsis vs SIRS : Fever leukocytosis Upon arrival in the ED, and fever, leukocytosis, Discontinued cefepime upon discharge Started on empiric amoxicillin/clavulanic acid for 5 days Assessment and Plan (1) Acute kidney injury: Code(s): N17.9 - Acute kidney failure, unspecified Status: Acute (2) Fever: Code(s): R50.9 - Fever, unspecified Status: Acute Sepsis vs SIRS Fever leukocytosis Upon arrival in the ED, and fever, leukocytosis, Code(s): R50.9 - Fever, unspecified Status: Acute Assessment and Plan: Unclear origin. Currently receiving empiric antibiotics with cefepime vancomycin. Blood cultures pending. Tylenol p.r.n., monitor fever. The CT chest abdomen pelvis shows no acute intra-abdominal issues, no consolidation in the lung. UA does not the suggest infection respiratory pathogen PCR negative Patient has history of lymphoma, need to rule out relapse of lymphoma Consult heme oncologist for evaluation treatment Pending blood culture Blood Culture, Routine Preliminary 10/24/24-1108 LC No growth in 24 hours. <Anais Us RN - Last Filed: 10/25/24 06:20> Clarified Diagnosis Clarified Diagnosis: Unknown or unable to determine <Jarrod Ravi MD - Last Filed: 10/25/24 15:38>
== END 2024-10-24 13:50 | disposition home or self-care (01) | DRG 683 ==
LOC: ANHED 10-22 02:26 → ANH3MEDSUR 10-22 03:14
PROVIDERS: Emergency Medicine; Admitting Provider General Practice; Emergency Provider Emergency Medicine; Visit Provider General Practice
DX: N17.9 Acute kidney failure, unspecified (principal); I13.0 Hypertensive heart and chronic kidney disease with heart failure and stage 1 through stage 4 chronic kidney disease, or unspecified chronic kidney disease; I24.89 Other forms of acute ischemic heart disease; R65.10 Systemic inflammatory response syndrome (SIRS) of non-infectious origin without acute organ dysfunction; R50.9 Fever, unspecified; C61 Malignant neoplasm of prostate; N18.9 Chronic kidney disease, unspecified; I50.9 Heart failure, unspecified; D72.829 Elevated white blood cell count, unspecified; I48.0 Paroxysmal atrial fibrillation; F03.90 Unspecified dementia, unspecified severity, without behavioral disturbance, psychotic disturbance, mood disturbance, and anxiety; M19.90 Unspecified osteoarthritis, unspecified site; Z85.72 Personal history of non-Hodgkin lymphomas; Z95.0 Presence of cardiac pacemaker; Z79.01 Long term (current) use of anticoagulants
CPT/HCPCS: 36415; 70450; 71045; 71260; 74177; 80048; 80053; 80307; 81001; 82077; 82803; 83605; 83690; 83735; 83880; 84100; 84145; 84443; 84484; 85025; 85027; 85610; 85730; 87040; 87637; 87641; 93005; 96365; 96367; 97110; 97116; 97161; 97165; 97530; 99285; A9270; C8929; J0692; J3373; J7030; Q9957; Q9967